=== PATIENT | male | born 1945 | race Caucasian/White ===

== ENCOUNTER 2017-04-21 10:42 | Emergency (ER) | payer OTHER, MEDICARE ==
[~2017-04-21] VITALS: Ht 167.6 cm; Wt 128.4 kg
[~2017-04-21 10:42] MED LIST: ADOXA100 MG PO; ALLERGY MEDICAT25 MG PO; AMLODIPINE5 MG PO; ASPIRIN81 M1 PO; BACTRIM DS 8001 TA1 PO; BACTROBAN OINT22 GM PO; BASLE1 CRE TP; BENADRYL25 M2 PO; CARVEDILOL3.125 MG PO; CEPHALEXIN500 M1 PO; CIPROFLOXACIN500 MG PO; COLACE100 MG PO; COREG6.25 MG PO; DAYPRO600 M1 PO; DIABETA1.25 MG PO; DIABETA5 MG PO; DRISDOL50000 IU PO; FLOMAX0.4 MG PO; GLUCOPHAGE1000 MG PO; GLUCOSE4 GM PO; GLUCOVANCE 1.251 TAB PO; GLYBURIDE5 MG PO; HUMULIN R100 U/ML IJ; HYDROCODONE BIT1 T11 PO; KEFLEX500 M1 PO; KERODEX 711 CRE TP; LANTUS SOLOS100 U/M1 SC; LANTUS100 U/ML SC; LASIX40 MG PO; LEVEMIR100 U/ML SC; LEVOTHYROXIN0.025 MG PO; LIPITOR40 MG PO; LISINOPRIL20 MG PO; MESTINON PO; MESTINON60 MG; MESTINON60 MG PO; METFORMIN HCL500 MG PO; METFORMIN1000 MG PO; MICRO-K LS20 MEQ PO; MIRALAX POWDER17 G1 PO; MIRALAX17 GM/PACK PO; MULTIPLE VITAMI1 TAB; NORCO 5-325 TA1 EACH PO; NORFLEX100 MG PO; NORVASC10 MG PO; NOVOLIN R100 U/ML IJ; NOVOLOG 70/30 M10 ML SC; Nizoral 2%15 GM PO; OMEPRAZOLE D/R20 MG PO; OMEPRAZOLE40 MG PO; Orphenadrine C100 MG PO; PRILOSEC20 M1 PO; PROTONIX40 MG PO; PYRIDOSTIGMINE180 MG PO; REGLAN IM; REGLAN10 MG PO; REGLAN5 MG PO; SPIRONOLACTONE25 MG PO; TAMSULOSIN HCL0.4 MG PO; TORADOL10 MG PO; ULTRAM50 MG PO; VIBRAMYCIN100 MG PO; VICODIN 5/500 505 MG PO; VICODIN 500 MG-1 TAB PO; VITAMIN D1000 IU PO; XANAX0.25 MG PO; ZOFRAN8 MG PO; ZYVOX600 MG PO
[2017-04-21 10:51] VITALS: BP 101/66
[2017-04-21 11:40] LABS: BILIRUBIN NEGATIVE (NEGATIVE); BLOOD NEGATIVE (NEGATIVE); CLARITY CLEAR (CLEAR); COLOR YELLOW (YELLOW); GLUCOSE TRACE (NEGATIVE); KETONE NEGATIVE (NEGATIVE); LEUKO ESTERASE NEGATIVE (NEGATIVE); NITRITE NEGATIVE (NEGATIVE); PH 5.5 (5.0-9.0); PROTEIN NEGATIVE (NEGATIVE); SPECIFIC GRAVITY 1.015 (1.005-1.030); UROBILINOGEN 0.2 E.U./dl (0.2-1.0)
[2017-04-21 11:55] LABS: URINE REFLEX COMMENT NO (NO)
[2017-04-21] MEDS ORDERED: NYSTATIN CREAM15 GM T (12:18)
[2017-04-21] MEDS ORDERED: HYDROCODONE BIT1 T11 PO (12:33)
== END 2017-04-21 12:26 | disposition home or self-care (01) ==
LOC: ED 10:42
PROVIDERS: Physician Assistant
DX: G89.29 Other chronic pain (principal); B37.89 Other sites of candidiasis; M54.5 Low back pain; Z79.82 Long term (current) use of aspirin; Z79.899 Other long term (current) drug therapy

== ENCOUNTER 2017-08-11 01:06 | Inpatient (IN) | payer MEDICARE, OTHER ==
[2017-08-11] VITALS (8 sets, daily range): BP systolic 108–148; BP diastolic 52–83
[~2017-08-11] VITALS: Ht 167.6 cm; Wt 127.6 kg
[~2017-08-11 01:06] MED LIST changes: +LANTUS SOL100 UNIT/1 SQ; +NYSTATIN CREAM15 GM T; -OMEPRAZOLE40 MG PO
[2017-08-11 01:48] LABS: BASO # 0.1 10*3/uL (0.0-0.1); BASO % 0.6 % (0.0-1.0); EOS # 0.2 10*3/uL (0.0-0.4); EOS % 2.6 % (1.0-4.0); HEMATOCRIT 39.3 % (42.0-52.0); HEMOGLOBIN 13.1 g/dl (14.0-18.0); LYMPH # 3.3 10*3/uL (1.3-4.4); LYMPH % 38.2 % (27.0-41.0); MEAN CELL VOLUME 89.7 fl (80.0-94.0); MEAN CORPUSCULAR HGB 29.9 pg (27.0-31.0); MEAN CORPUSCULAR HGB CONC 33.3 g/dl (33.0-37.0); MEAN PLATELET VOLUME 9.2 fl (9.6-12.3); MONO # 0.6 10*3/uL (0.1-1.0); MONO % 6.5 % (3.0-9.0); NEUT # 4.4 10*3/uL (2.3-7.9); NEUT % 51.9 % (47.0-73.0); PLATELET COUNT AUTOMATED 287 10*3/uL (130-400); RED BLOOD COUNT 4.38 10*6/uL (4.50-5.90); RED CELL DISTRI WIDTH 13.2 % (0-14.5); WHITE BLOOD COUNT 8.5 10*3/uL (4.8-10.8)
--- NOTE | 2017-08-11 01:52 | NUR ---
NOTIFIED OF CRITICAL LACTIC 2.7.
[2017-08-11 02:02] LABS: INTERNATIONAL NORM RATIO 1.1 (2.0-3.5)
[2017-08-11 02:04] LABS: ALBUMIN 3.4 gm/dl (3.1-4.5); ALKALINE PHOSPHATASE 60 U/L (45-117); BUN 11 mg/dl (7-24); CHLORIDE 99 mmol/L (98-107); CREATININE 0.96 mg/dL (0.70-1.30); LIPASE 346 U/L (73-393); POTASSIUM 3.9 mmol/L (3.5-5.1); SGOT/AST 25 IU/L (3-35); SGPT/ALT 29 U/L (12-78); SODIUM 138 mmol/L (136-145); TOTAL PROTEIN 7.4 gm/dL (6.4-8.2)
[2017-08-11 02:05] LABS: TROPONIN I 0.028 ng/ml (<0.045)
--- NOTE | 2017-08-11 03:30 | NUR ---
DR. HWANG NOTIFIED OF BEDSIDE GLUCOSE 192. FAMILY UNDERSTANDS THAT DR. HWANG WANTS TO HOLD PATIENT'S DNR CC FOR 12 HOURS FOR CARDIAC MONITORING AND IV BOLUSES. PATIENT ACCEPTED.
[2017-08-11 03:43] LABS: BILIRUBIN NEGATIVE (NEGATIVE); BLOOD NEGATIVE (NEGATIVE); CLARITY SL CLOUDY (CLEAR); COLOR YELLOW (YELLOW); GLUCOSE NEGATIVE (NEGATIVE); KETONE TRACE (NEGATIVE); LEUKO ESTERASE NEGATIVE (NEGATIVE); NITRITE NEGATIVE (NEGATIVE); UROBILINOGEN 0.2 E.U./dl (0.2-1.0)
[2017-08-11 03:50] LABS: BACTERIA TRACE; EPITHELIAL CELLS 0-2; WBC 0-2 wbc/hpf (0-5)
--- NOTE | 2017-08-11 03:54 | NUR ---
DOCTOR NOTIFIED OF ABNORMAL LACTIC ACID OF 2.8.
--- NOTE | 2017-08-11 04:20 | NUR ---
CALLED AND SPOKE TO DR LOVE REGARDING PT HAVING PAIN BEFORE BREAKTHROUGH PAIN MEDICATION AVAILABLE. PT CRYING IN ROOM. QUESTIONED CHANGING THE FREQUENCY OF MEDICATION AND ALSO ASKED IF PATIENT COULD GET A KPAD FOR ABDOMEN. HE STATES HE WILL TALK TO DR KIRKPATRICK TO SEE WHAT THEY CAN DO.
--- NOTE | 2017-08-11 04:51 | NUR ---
PATIENT GIVEN HOME MEDS FOR MS, 90 MG (1 1/2 ) TAB OF PYRIDOSTIGMINE BROMIDE AT 0450 HRS
--- NOTE | 2017-08-11 05:15 | NUR ---
A 71, admitted to 4E, under the services of LINA Mitchell DO with a diagnosis of UNCONTROLLED DIABETES, TIA. Chief complaint is HYPERGLYCEMIA. Patient arrived via bed from ER. Monitor applied. Initial assessment completed. Vital signs taken and recorded. LINA MITCHELL DO notified of admission to the unit. Orders received. See assessment for past medical history, medications and allergies. Patient and/or family oriented to unit. visitation policy reviewed. Clothing/patient valuable form completed. TERRI APPIAH
--- NOTE | 2017-08-11 05:29 | NUR ---
PT BROUGHT IN ONE BOTTLE OF MEDS FROM HOME. STATES HE TAKES MORE MEDICATIONS BUT IS UNSURE OF WHAT THEY ARE. PT USES [facility]. NUMBER IS [id number]
--- NOTE | 2017-08-11 06:05 | NUR ---
RECEIVED A CRITICAL LAB VALUE FOR LACTIC ACID OF 2.2. CALL DR GARBER AND MADE HIM AWARE, HE SAYS HE WILL BE DOWN TO ASSESS THE PATIENT SHORTLY.
--- NOTE | 2017-08-11 06:58 | NUR ---
PT DOES NOT WISH TO RECEIVED FLU OR PNEUMONIA VACCINE.
[2017-08-11 07:30] LABS: BASO # 0.1 10*3/uL (0.0-0.1); BASO % 0.6 % (0.0-1.0); EOS # 0.2 10*3/uL (0.0-0.4); EOS % 2.2 % (1.0-4.0); HEMATOCRIT 38.3 % (42.0-52.0); HEMOGLOBIN 12.9 g/dl (14.0-18.0); LYMPH # 3.3 10*3/uL (1.3-4.4); LYMPH % 38.6 % (27.0-41.0); MEAN CELL VOLUME 90.5 fl (80.0-94.0); MEAN CORPUSCULAR HGB 30.5 pg (27.0-31.0); MEAN CORPUSCULAR HGB CONC 33.7 g/dl (33.0-37.0); MEAN PLATELET VOLUME 9.2 fl (9.6-12.3); MONO # 0.5 10*3/uL (0.1-1.0); MONO % 5.7 % (3.0-9.0); NEUT # 4.5 10*3/uL (2.3-7.9); NEUT % 52.6 % (47.0-73.0); PLATELET COUNT AUTOMATED 284 10*3/uL (130-400); RED BLOOD COUNT 4.23 10*6/uL (4.50-5.90); RED CELL DISTRI WIDTH 13.3 % (0-14.5); WHITE BLOOD COUNT 8.6 10*3/uL (4.8-10.8)
[2017-08-11 07:54] LABS: CHLORIDE 101 mmol/L (98-107); POTASSIUM 3.8 mmol/L (3.5-5.1); SODIUM 137 mmol/L (136-145)
--- NOTE | 2017-08-11 07:56 | NUR ---
DR JOHNSON IN TO SEE PT, NOTIFIED OF PT'S COMPLAINTS OF DIARRHEA AND SHAKINESS.
[2017-08-11 08:02] LABS: ACT PARTIAL THROMBO TIME 23.1 SECONDS (20.8-31.5); INTERNATIONAL NORM RATIO 1.1 (2.0-3.5)
--- NOTE | 2017-08-11 08:03 | NUR ---
CALL PLACED TO BAMBI AT THIS TIME TO VERIFY PT'S HOME MEDS. NO ANSWER AT THIS TIME. WILL RETRY.
[2017-08-11 08:05] LABS: ALBUMIN 3.1 gm/dl (3.1-4.5); ALKALINE PHOSPHATASE 56 U/L (45-117); BUN 11 mg/dl (7-24); CHOLESTEROL 119 mg/dL (<200); CREATININE 1.03 mg/dL (0.70-1.30); FREE T4 1.41 ng/dl (0.76-1.46); HDL CHOLESTEROL 48 mg/dl (40-60); LDL CHOLESTEROL 53 mg/dL (9-159); PHOSPHOROUS 2.3 mg/dL (2.5-4.9); SGOT/AST 27 IU/L (3-35); SGPT/ALT 29 U/L (12-78); TRIGLYCERIDES 89 mg/dl (<150); VLDL CHOLESTEROL 18 mg/dL (6-40)
--- NOTE | 2017-08-11 08:06 | NUR ---
DR JOHNSON STATES OK FOR PT TO HAVE DIET FOR BREAKFAST. ORDER CHANGED FROM LUNCH TO BREAKFAST.
[2017-08-11 08:52] LABS: VITAMIN D, 25-HYDROXY 27.1 ng/mL (30-100)
--- NOTE | 2017-08-11 09:26 | NUR ---
SPEECH PATHOLOGY Assessment of speech/swallowing skills completed. Patient was admitted with weakness and slurred speech and has hx significant for TIA and myasthenia gravis. He was alert and cooperative and reported slurred speech and some trouble swallowing. Oral peripheral assessment completed with lingual skills very mildly reduced in strength, but WNL otherwise. Patient swallowed puree and thin liquid with no oral or pharyngeal difficulty. He displayed mild difficulty masticating solid consistency. Receptive language skills were WNL. Mild dysarthria of speech was displayed. Recommend a soft diet and thin liquids with use of safe swallow strategies such as upright positioning for all po intake, small bites/sips, alternating liquids and solids and moistening foods as appropriate so they are easier to chew and swallow. He was also educated on compensatory strategies to use to improve speech clarity. Follow up therapy is recommended to ensure safe tolerance of diet, use of strategies and education. Patient and his nurse were informed of results and mera. and verbalized understanding. Refer to report in [employer] for further info. Thank you for this referral. TINO GIBSON MSCCC-OVERLOCK WAISTLINE JOINER
--- NOTE | 2017-08-11 09:40 | NUR ---
MEDICATED WITH ZOFRAN PER PRN ORDER FOR COMPLAINTS OF NAUSEA. WILL MONITOR FOR EFFECTIVENESS. PT STATES HE NO LONGER HAS A HEADACHE AND DENIES NEED FOR TYLENOL. REINFORCED CALL LIGHT USE FOR SAFETY AND EDUCATED PT ON THE USE OF THE BED ALARM, WE DON'T WANT HIM TO FALL, PT VERBALIZED UNDERSTANDING.
--- NOTE | 2017-08-11 09:45 | NUR ---
DR ROBLES NOTIFIED OF SPEECH THERAPY'S RECOMMENDATION OF SOFT DIET AND THIN LIQUIDS.
[2017-08-11] MEDS ORDERED: SYNTHROID25 MCG PO (11:09)
[2017-08-11] MEDS ORDERED: XANAX0.5 MG PO (11:09)
--- NOTE | 2017-08-11 11:12 | NUR ---
MED REC UPDATED BY LIST PROVIDED BY LUCIO'Terra LACY.
--- NOTE | 2017-08-11 11:13 | NUR ---
NOTIFIED DR MIRELES THAT PT'S MED REC IS UPDATED AND VERIFIED.
--- NOTE | 2017-08-11 14:48 | NUR ---
Patient approached for Occupational Therapy evaluation this date. Patient declined the OT evaluation this date with c/o of finally getting to sleep. OTR will recheck at a later date. Patient in agreement with tomorrow. Thank you for this referral. Anjana Jordan OTR/l
--- NOTE | 2017-08-11 16:10 | NUR ---
MEDICATED WITH TYLENOL PER PT REQUEST FOR C/O HEADACHE. WILL MONITOR FOR EFFECTIVENESS.
--- NOTE | 2017-08-11 16:47 | NUR ---
NOTIFIED DR ROBLES OF PT'S COMPLAINTS OF PRODUCTIVE WITH THICK SPUTUM THAT IS GETTING CAUGHT IN HIS THROAT AND WOULD LIKE SOMETHING FOR IT.
--- NOTE | 2017-08-11 18:32 | NUR ---
PT STATES TYLENOL WAS MILDLY EFFECTIVE FOR HEADACHE RELIEF.
[2017-08-12] VITALS: BP 116/60
--- NOTE | 2017-08-12 02:30 | NUR ---
PATIENT RESTING IN BED WITH EYES CLOSED. RESPS EASY AND REGULAR. BED IN LOWEST POSITION, BED ALARM ON, CALL LIGHT IN REACH
[2017-08-12 06:52] LABS: BUN 12 mg/dl (7-24); CHLORIDE 102 mmol/L (98-107); CREATININE 0.91 mg/dL (0.70-1.30); PHOSPHOROUS 3.2 mg/dL (2.5-4.9); POTASSIUM 3.9 mmol/L (3.5-5.1); SODIUM 138 mmol/L (136-145)
[2017-08-12 08:00] VITALS: BP 118/62
--- NOTE | 2017-08-12 10:18 | NUR ---
PHYSICAL THERAPY PAtient evaluated on 4, full evaluation to follow. Continue with PT as per plan of care with fall and acute debility precautions. PAtient refuses SNF, home with complete home health services recommended. PAtient is moderate complexity via chart review, tests and evaluation: [id number]. Thank you for this ereferral. May Leo,PT
--- NOTE | 2017-08-12 10:33 | NUR ---
Occupational Therapy evaluation completed this date on 4 with full eval to follow. Precautions include IV UE, use of electric w/c in the home, but needing to use ww at hospital,low complexity level 52991. Recommend no further inpatient OT, but rather OT referral for bathroom/shower safety. Patient in agreement with this plan. Thank you for this referral. Anjana Jordan OTR/l
--- NOTE | 2017-08-12 10:58 | NUR ---
In to see patient to discuss discharge plans. Patient is refusing snf, states he has a motorized scooter at home he uses to get around, he is worried about getting home health and getting a bill because he can't afford it. Contacted oralia from [facility] who stated she will check to see if patient has any other home health agency, but stated he will not be billed for any services with Medicare. Will follow.
[2017-08-12 12:00] VITALS: BP 102/56
--- NOTE | 2017-08-12 13:50 | NUR ---
SPEECH PATHOLOGY PT SEEN THIS PM TO F/U REGARDING TOLERANCE TO DIET, SPEECH PRODUCTION, AND TO REINFORCE ASPIRATION PRECAUTIONS. GENERAL COMMENTS: UPON ENTRANCE TO ROOM, PT WAS AWAKE AND SEATED UPRIGHT IN A BEDSIDE CHAIR. HE REMAINED AWAKE, ALERT, AND COOPERATIVE THROUGHOUT. PT DENIED CONCERNS REGARDING SWALLOWING ALTHOUGH NOTED AN OCCASIONAL STICKING SENSATION IN HIS THROAT THAT HE ATTRIBUTED TO PHLEGM. HE ALSO REPORTED THAT HIS SPEECH HAS NOT RETURNED TO BASELINE; HE NOTICES OCCASIONAL DIFFICULTY PRODUCING CERTAIN WORDS. PT'S SPEECH WAS 100% COMPREHENSIBLE AND NO DIFFICULTY WAS NOTED; HOWEVER, RATE WAS MILDLY SLOWED. SWALLOWING: PT SELF-FED THIN LIQUIDS VIA CUP X6 AND BITES OF COARSE SOLIDS X6. ORAL PHASE: ADEQUATE BOLUS ACCEPTANCE WITH NO ANTERIOR LOSS NOTED. MASTICATION WAS TIMELY AND CLINICALLY APPEARED COMPLETE. MILD ORAL RESIDUE NOTED WITH SOLIDS, CLEARED WITH LIQUID WASH. PHARYNGEAL PHASE: HLE VISUALIZED. ONE INSTANCE OF COUGHING NOTED AT A DELAY FOLLOWING MULTIPLE BITES OF SOLIDS. NO OTHER OVERT S/S OF ASPIRATION/PENETRATION OBSERVED. IMPRESSIONS: MR. OROZCO PRESENTS WITH NORMAL OROPHARYNGEAL SWALLOWING FUNCTION AND REMAINS APPROPRIATE FOR HIS CURRENT DIET, SOFT FOODS WITH THIN LIQUIDS. RECOMMNEDED ASPIRATION PRECAUTIONS WERE AGAIN REVIEWED. HE NOTED THAT HIS SPEECH HAS NOT YET RETURNED TO BASELINE BUT IS 100% COMPREHENSIBLE. WE DISCUSSED LETTING HIS DOCTOR KNOW IF HIS SPEECH HAS NOT RETURNED TO BASELINE WHEN FOLLOWING UP AFTER HE IS DISCHARGED FROM THE HOSPITAL. PT WAS IN AGREEMENT WITH THIS PLAN. RECOMMENDATIONS: 1. CONTINUE CURRENT DIET, SOFT FOODS WTIH THIN LIQIUDS 2. ASPIRATION PRECAUTIONS - ALTERNATE BITES/SIPS - PAUSE PO IF FATIGUED - SMALL BITES/SIPS - FULLY UPRIGHT, AWAKE, AND ALERT FOR ALL PO - ORAL CARE AT LEAST BID 3. CONSIDER REFERRAL FOR SPEECH EVALUATION ON AN OP BASIS IF SPEECH CHANGES HAVE NOT RESOLVED. POC: NO FURTHER INPATIENT F/U AT THIS TIME. CONSIDER OP REFERRAL IF SPEECH CHANGES DO NOT RESOLVE. FINDINGS AND RECOMMENDATIONS WERE DISCUSSED WITH PT WHO EXPRESSED UNDERSTANDING AND AGREEMENT. SHANTI MOBLEY-ART DEALER 1. CONTINUE
--- NOTE | 2017-08-12 14:49 | NUR ---
24 HR chart check completed.
[2017-08-12 16:00] VITALS: BP 113/60
[2017-08-12] MEDS ORDERED: ATORVASTATIN CA80 M1 PO (16:15)
[2017-08-12] MEDS ORDERED: LANTUS SOL100 UNIT/1 SQ (16:21)
[2017-08-12] MEDS ORDERED: CLOPIDOGREL75 MG PO (16:21)
[2017-08-12] MEDS ORDERED: VITAMIN D-32000 UNI1 PO (16:21)
--- NOTE | 2017-08-12 17:27 | NUR ---
[facility] Discharge instructions reviewed with patient/family. Patient receptive and verbalizes understanding. Follow-up care arranged. Written instructions given to patient/family. REKHA KAY
--- NOTE | 2017-08-13 07:27 | NUR ---
Patient discharged to home with home health via [facility]. Received order faxed referral to oralia at [facility].
== END 2017-08-12 17:27 | disposition home health service (06) | DRG 69 ==
LOC: ED 01:06 → EDHOLD 03:43 → 4E 03:43
PROVIDERS: Emergency Medicine Emergency Medical Services; Internal Medicine; Student in an Organized Health Care Education/Training Program; ADMIT Internal Medicine
DX: G45.9 Transient cerebral ischemic attack, unspecified (principal); E44.0 Moderate protein-calorie malnutrition; E11.65 Type 2 diabetes mellitus with hyperglycemia; E87.2 Acidosis; E66.01 Morbid (severe) obesity due to excess calories; I50.22 Chronic systolic (congestive) heart failure; Z68.42 Body mass index [BMI] 45.0-49.9, adult; G70.00 Myasthenia gravis without (acute) exacerbation; D64.9 Anemia, unspecified; E55.9 Vitamin D deficiency, unspecified; I11.0 Hypertensive heart disease with heart failure; R19.7 Diarrhea, unspecified; N40.0 Benign prostatic hyperplasia without lower urinary tract symptoms; H40.9 Unspecified glaucoma; E05.90 Thyrotoxicosis, unspecified without thyrotoxic crisis or storm; G47.33 Obstructive sleep apnea (adult) (pediatric); E78.5 Hyperlipidemia, unspecified; Z86.73 Personal history of transient ischemic attack (TIA), and cerebral infarction without residual deficits; Z95.0 Presence of cardiac pacemaker; I25.2 Old myocardial infarction; Z82.49 Family history of ischemic heart disease and other diseases of the circulatory system; Z83.3 Family history of diabetes mellitus; Z79.4 Long term (current) use of insulin; Z79.82 Long term (current) use of aspirin; Z79.899 Other long term (current) drug therapy

== ENCOUNTER 2018-01-03 05:11 | Inpatient (IN) | payer MEDICARE, OTHER ==
[~2018-01-03] VITALS: Ht 167.6 cm; Wt 119.9 kg
--- NOTE | ~2018-01-03 | PR ---
[place], [place] PROGRESS NOTE NAME: OMAIRA OROZCO UNIT #: [id number] ROOM: 507 DOCTOR: GILBERT JUNG MD BIRTHDATE: [birth year] DOS: 01/04/2018 REASON OF VISIT: The patient with chest pain, hypertension and CHF. HISTORY OF PRESENT ILLNESS: The patient is feeling better. Denies any chest pain or PND. Feeling much better. No orthopnea. No nausea, vomiting, or diarrhea. REVIEW OF SYSTEMS: Review of the 8 systems negative except as mentioned above. RHYTHM STRIPS: The patient in sinus rhythm. PHYSICAL EXAMINATION: VITAL SIGNS: Blood pressure 100/60, pulse 71, respiration is 20. GENERAL: Alert, comfortable, in no acute distress. HEENT: Pupils are equal, no jaundice. Tongue was moist and pharynx clear. NECK: Supple, no distended neck veins, no carotid bruit. CHEST: Symmetrical, nontender. LUNGS: A few scattered rhonchi, slightly diminished at the bases, but fair air entry bilaterally. HEART: Regular rhythm, no S3, no palpable thrills. ABDOMEN: Obese, nontender. Bowel sounds normal. EXTREMITIES: Show trace to 1+ edema. Distal pulses palpable. SKIN: Warm and dry. No cyanosis, no clubbing. NEUROLOGIC: The patient is alert, oriented. No focal neurologic deficit. Medications and labs reviewed. His creatinine is 1.16 today. IMPRESSION: 1. Acute on chronic diastolic heart failure, mostly resolved. 2. Chest pain, atypical. 3. Hypertension. 4. History of coronary artery disease. 5. Status post pacemaker. 6. Non-morbid obesity. RECOMMENDATIONS: 1. Continue current medications. 2. Change his diuretics to p.o. diuretics. 3. Home either today or tomorrow. 4. There is no family at the bedside at the time of examination. [place], [place] PROGRESS NOTE NAME: OMAIRA OROZCO UNIT #: [id number] ROOM: 507 DOCTOR: GILBERT JUNG MD BIRTHDATE: [birth year] GILBERT JUNG MD CM:PNTRANS [id number] GILBERT JUNG MD 01/05/18 1001 interface
--- NOTE | ~2018-01-03 | CON ---
[place], [place] REPORT OF CONSULTATION NAME: OMAIRA OROZCO UNIT #: [id number] ROOM: 507 DOCTOR: GILBERT JUNG MD BIRTHDATE: [birth year] DOS: 01/03/2018 CARDIOLOGY CONSULTATION. REASON FOR CONSULT: CHF. HISTORY OF PRESENT ILLNESS: The patient is a 72-year-old patient with history of cardiomyopathy, hypertension, CAD, diabetes, admitted to the hospital for some nausea as well as constipation. He was recently discharged from the hospital. He had some epigastric pain that lasted about 15 minutes, resolved on its own and he also had some tightness around his lower abdominal area. He was found to have congestive heart failure on chest x-ray and Cardiology was consulted for further recommendations. At the time of examination, the patient appears alert and oriented. Denies any chest pain, shortness of breath, PND or orthopnea. No nausea, vomiting. No headache, no dizziness. No fever or chills. No bladder or bowel symptoms. His epigastric pain is resolved at the time of my examination. REVIEW OF SYSTEMS: Review of the 10 systems negative except as mentioned above. PAST MEDICAL HISTORY: 1. Coronary artery disease. 2. Hypertension. 3. Diabetes. 4. Non-morbid obesity. 5. Cardiomyopathy. 6. Myasthenia gravis. 7. Dyslipidemia. 8. Transient ischemic attack. 9. Goiter. 10. History of pacemaker. PAST SURGICAL HISTORY: History of pacemaker insertion and the left shoulder surgery. SOCIAL HISTORY: The patient does not drink alcohol or illicit drugs. The patient does smoke. FAMILY HISTORY: Father, mother . ALLERGIES: No known drug allergies. HOME MEDICATIONS: Reviewed. PHYSICAL EXAMINATION: VITAL SIGNS: Blood pressure 133/71, pulse 84, respiration was 18, weight 118.8 kilos, BMI 42. GENERAL: Alert, comfortable, in no acute distress. HEENT: Pupils are round and equal. No jaundice. Tongue was moist and pharynx was clear. [place], [place] REPORT OF CONSULTATION NAME: OMAIRA OROZCO UNIT #: [id number] ROOM: 507 DOCTOR: GILBERT JUNG MD BIRTHDATE: [birth year] NECK: Supple, no distended neck veins, no carotid bruit. CHEST: Symmetrical, nontender. Pacemaker site is unremarkable. LUNGS: A few scattered rhonchi, diminished at bases. HEART: Regular rhythm, no S3. Grade 1/6 systolic murmur. No palpable thrills. ABDOMEN: Benign, nontender, obese. Bowel sounds normal. EXTREMITIES: Showed 1+ edema. Distal pulses are palpable. SKIN: Warm and dry. No cyanosis, no clubbing. RECTAL: Deferred. GENITOURINARY: Deferred. REVIEW OF THE DIAGNOSTIC TESTS: EKG showed sinus rhythm, ventricular pacing. Chest x-ray showed congestive heart failure. His labs are reviewed. Hemoglobin 12, creatinine 0.9. WBC count was 4000. Magnesium 1.6. The troponins are negative x 3. CURRENT MEDICATIONS: Reviewed. IMPRESSION: 1. Acute on chronic systolic heart failure, EF 35-40% by echo in 08/2017. 2. Hypertension. 3. Coronary artery disease. 4. Status post pacemaker. 5. Non-morbid obesity. 6. Diabetes type 2. 7. Myasthenia gravis. 8. History of transient ischemic attack. RECOMMENDATIONS: 1. Currently, he is feeling better. Continue IV diuretics and monitor daily weights, in and outs as well as renal function and blood pressures. 2. Continue cardiac medication, include beta blockers, GWENDOLYN inhibitors, aspirin, and statins. 3. There is no further cardiac testing at this time. 4. Home in 24-48 hours from the cardiac standpoint. GILBERT JUNG MD CM:CONSTR:REPORT OF CONSULTATION 9 01/04/18 2001 interface
[~2018-01-03 05:11] MED LIST changes: +ATORVASTATIN CA80 M1 PO; +CLOPIDOGREL75 MG PO; +SYNTHROID25 MCG PO; +VITAMIN D-32000 UNI1 PO; +XANAX0.5 MG PO
[2018-01-03 05:13] VITALS: BP 146/77
[2018-01-03 05:54] LABS: BASO % 0.4 % (0.0-1.0); EOS # 0.2 10*3/uL (0.0-0.4); EOS % 2.6 % (1.0-4.0); HEMATOCRIT 37.6 % (42.0-52.0); LYMPH # 2.6 10*3/uL (1.3-4.4); LYMPH % 30.8 % (27.0-41.0); MEAN CELL VOLUME 91.9 fl (80.0-94.0); MEAN CORPUSCULAR HGB 29.3 pg (27.0-31.0); MEAN CORPUSCULAR HGB CONC 31.9 g/dl (33.0-37.0); MONO # 0.6 10*3/uL (0.1-1.0); MONO % 6.9 % (3.0-9.0); NEUT % 58.9 % (47.0-73.0); PLATELET COUNT AUTOMATED 291 10*3/uL (130-400); RED BLOOD COUNT 4.09 10*6/uL (4.50-5.90); RED CELL DISTRI WIDTH 14.1 % (0-14.5); WHITE BLOOD COUNT 8.4 10*3/uL (4.8-10.8)
[2018-01-03 06:10] LABS: ALBUMIN 3.1 gm/dl (3.1-4.5); ALKALINE PHOSPHATASE 64 U/L (45-117); BUN 13 mg/dl (7-24); CHLORIDE 103 mmol/L (98-107); CREATININE 0.92 mg/dL (0.70-1.30); POTASSIUM 4.1 mmol/L (3.5-5.1); SGOT/AST 22 IU/L (3-35); SGPT/ALT 24 U/L (12-78); SODIUM 140 mmol/L (136-145); TOTAL PROTEIN 6.8 gm/dL (6.4-8.2); TROPONIN I 0.037 ng/ml (<0.045)
[2018-01-03 06:29] VITALS: BP 130/66
[2018-01-03 06:50] LABS: ACT PARTIAL THROMBO TIME 23.1 SECONDS (20.8-31.5)
[2018-01-03 07:34] VITALS: BP 133/71
[2018-01-03] MEDS ORDERED: METFORMIN500 MG PO (07:58)
[2018-01-03] MEDS ORDERED: LASIX40 MG PO (07:58)
[2018-01-03 12:00] VITALS: BP 137/72
[2018-01-03 16:00] VITALS: BP 101/63
[2018-01-03 20:00] VITALS: BP 104/63
[2018-01-04] VITALS: BP 100/53
[2018-01-04 06:50] LABS: BASO % 0.5 % (0.0-1.0); EOS # 0.2 10*3/uL (0.0-0.4); EOS % 1.7 % (1.0-4.0); HEMOGLOBIN 12.1 g/dl (14.0-18.0); LYMPH % 34.6 % (27.0-41.0); MEAN CELL VOLUME 92.7 fl (80.0-94.0); MEAN CORPUSCULAR HGB 29.5 pg (27.0-31.0); MEAN CORPUSCULAR HGB CONC 31.8 g/dl (33.0-37.0); MEAN PLATELET VOLUME 9.3 fl (9.6-12.3); MONO # 0.6 10*3/uL (0.1-1.0); MONO % 6.6 % (3.0-9.0); NEUT # 4.9 10*3/uL (2.3-7.9); NEUT % 56.4 % (47.0-73.0); PLATELET COUNT AUTOMATED 312 10*3/uL (130-400); RED CELL DISTRI WIDTH 14.4 % (0-14.5); WHITE BLOOD COUNT 8.6 10*3/uL (4.8-10.8)
[2018-01-04 07:14] LABS: BUN 21 mg/dl (7-24); CHLORIDE 101 mmol/L (98-107); CHOLESTEROL 115 mg/dL (<200); CREATININE 1.16 mg/dL (0.70-1.30); HDL CHOLESTEROL 46 mg/dl (40-60); LDL CHOLESTEROL 51 mg/dL (9-159); PHOSPHOROUS 4.2 mg/dL (2.5-4.9); SODIUM 140 mmol/L (136-145); TRIGLYCERIDES 89 mg/dl (<150); VLDL CHOLESTEROL 18 mg/dL (6-40)
[2018-01-04 08:00] VITALS: BP 100/60
[2018-01-04 12:00] VITALS: BP 124/86
[2018-01-04 16:00] VITALS: BP 130/82
[2018-01-04 20:00] VITALS: BP 130/79
[2018-01-05] VITALS: BP 128/77
[2018-01-05 08:00] VITALS: BP 138/72
[2018-01-05 12:00] VITALS: BP 100/50
[2018-01-05 13:11] LABS: BASO % 0.5 % (0.0-1.0); EOS # 0.2 10*3/uL (0.0-0.4); EOS % 1.9 % (1.0-4.0); HEMATOCRIT 38.3 % (42.0-52.0); HEMOGLOBIN 12.4 g/dl (14.0-18.0); LYMPH % 22.8 % (27.0-41.0); MEAN CELL VOLUME 91.2 fl (80.0-94.0); MEAN CORPUSCULAR HGB 29.5 pg (27.0-31.0); MEAN CORPUSCULAR HGB CONC 32.4 g/dl (33.0-37.0); MEAN PLATELET VOLUME 8.8 fl (9.6-12.3); MONO # 0.7 10*3/uL (0.1-1.0); MONO % 7.8 % (3.0-9.0); NEUT # 5.7 10*3/uL (2.3-7.9); NEUT % 66.6 % (47.0-73.0); PLATELET COUNT AUTOMATED 302 10*3/uL (130-400); RED CELL DISTRI WIDTH 14.3 % (0-14.5); WHITE BLOOD COUNT 8.6 10*3/uL (4.8-10.8)
[2018-01-05 13:29] LABS: ALBUMIN 3.2 gm/dl (3.1-4.5); ALKALINE PHOSPHATASE 59 U/L (45-117); BUN 23 mg/dl (7-24); CHLORIDE 98 mmol/L (98-107); CREATININE 1.23 mg/dL (0.70-1.30); LIPASE 1218 U/L (73-393); POTASSIUM 4.7 mmol/L (3.5-5.1); SGOT/AST 32 IU/L (3-35); SGPT/ALT 24 U/L (12-78); SODIUM 136 mmol/L (136-145); TROPONIN I 0.017 ng/ml (<0.045)
[2018-01-05 15:04] LABS: BILIRUBIN 1+ (NEGATIVE); BLOOD 3+ (NEGATIVE); CLARITY SL CLOUDY (CLEAR); COLOR YELLOW (YELLOW); GLUCOSE NEGATIVE (NEGATIVE); KETONE NEGATIVE (NEGATIVE); LEUKO ESTERASE NEGATIVE (NEGATIVE); NITRITE NEGATIVE (NEGATIVE); SPECIFIC GRAVITY >= 1.030 (1.005-1.030); UROBILINOGEN 0.2 E.U./dl (0.2-1.0)
[2018-01-05 15:13] LABS: BACTERIA 2+; EPITHELIAL CELLS 0-2; RBC TNTC rbc/hpf (0-2)
[2018-01-05 16:00] VITALS: BP 131/62
[2018-01-05 20:00] VITALS: BP 100/61
[2018-01-06] VITALS: BP 90/53
[2018-01-06 06:48] LABS: BASO % 0.4 % (0.0-1.0); EOS # 0.2 10*3/uL (0.0-0.4); EOS % 2.9 % (1.0-4.0); HEMATOCRIT 39.3 % (42.0-52.0); HEMOGLOBIN 12.4 g/dl (14.0-18.0); MEAN CELL VOLUME 92.5 fl (80.0-94.0); MEAN CORPUSCULAR HGB 29.2 pg (27.0-31.0); MEAN CORPUSCULAR HGB CONC 31.6 g/dl (33.0-37.0); MEAN PLATELET VOLUME 8.9 fl (9.6-12.3); MONO # 0.5 10*3/uL (0.1-1.0); MONO % 6.6 % (3.0-9.0); NEUT # 4.2 10*3/uL (2.3-7.9); NEUT % 60.8 % (47.0-73.0); PLATELET COUNT AUTOMATED 295 10*3/uL (130-400); RED BLOOD COUNT 4.25 10*6/uL (4.50-5.90); RED CELL DISTRI WIDTH 14.3 % (0-14.5)
[2018-01-06 07:19] LABS: ALBUMIN 3.1 gm/dl (3.1-4.5); ALKALINE PHOSPHATASE 60 U/L (45-117); BUN 27 mg/dl (7-24); CHLORIDE 103 mmol/L (98-107); LIPASE 945 U/L (73-393); PHOSPHOROUS 3.7 mg/dL (2.5-4.9); POTASSIUM 4.6 mmol/L (3.5-5.1); SGOT/AST 27 IU/L (3-35); SGPT/ALT 23 U/L (12-78); SODIUM 139 mmol/L (136-145); TOTAL PROTEIN 6.8 gm/dL (6.4-8.2)
[2018-01-06 07:34] LABS: ACT PARTIAL THROMBO TIME 22.1 SECONDS (20.8-31.5)
[2018-01-06 08:00] VITALS: BP 114/60
[2018-01-06 12:00] VITALS: BP 107/55
[2018-01-06 16:00] VITALS: BP 106/72
== END 2018-01-06 18:02 | disposition home health service (06) | DRG 292 ==
LOC: ED 05:11 → 5E 06:37 → EDHOLD 06:37 → 5E 06:53
PROVIDERS: Emergency Medicine; Internal Medicine; Student in an Organized Health Care Education/Training Program
DX: I11.0 Hypertensive heart disease with heart failure (principal); R65.10 Systemic inflammatory response syndrome (SIRS) of non-infectious origin without acute organ dysfunction; E44.0 Moderate protein-calorie malnutrition; E11.65 Type 2 diabetes mellitus with hyperglycemia; G70.00 Myasthenia gravis without (acute) exacerbation; E66.01 Morbid (severe) obesity due to excess calories; Z68.41 Body mass index [BMI] 40.0-44.9, adult; D64.9 Anemia, unspecified; Z66 Do not resuscitate; I50.43 Acute on chronic combined systolic (congestive) and diastolic (congestive) heart failure; G47.00 Insomnia, unspecified; I25.10 Atherosclerotic heart disease of native coronary artery without angina pectoris; F32.9 Major depressive disorder, single episode, unspecified; Z51.5 Encounter for palliative care; K76.0 Fatty (change of) liver, not elsewhere classified; E03.9 Hypothyroidism, unspecified; M48.00 Spinal stenosis, site unspecified; E55.9 Vitamin D deficiency, unspecified; I35.0 Nonrheumatic aortic (valve) stenosis; I42.9 Cardiomyopathy, unspecified; G47.33 Obstructive sleep apnea (adult) (pediatric); N40.0 Benign prostatic hyperplasia without lower urinary tract symptoms; R07.89 Other chest pain; E78.5 Hyperlipidemia, unspecified; Z79.4 Long term (current) use of insulin; Z79.82 Long term (current) use of aspirin; Z79.84 Long term (current) use of oral hypoglycemic drugs; Z79.899 Other long term (current) drug therapy; I25.2 Old myocardial infarction; Z86.73 Personal history of transient ischemic attack (TIA), and cerebral infarction without residual deficits; Z95.0 Presence of cardiac pacemaker; Z82.49 Family history of ischemic heart disease and other diseases of the circulatory system; Z83.3 Family history of diabetes mellitus

== ENCOUNTER 2018-02-06 08:48 | Emergency (ER) | payer MEDICARE, OTHER ==
[~2018-02-06] VITALS: Wt 119.3 kg
[~2018-02-06 08:48] MED LIST changes: +METFORMIN500 MG PO
[2018-02-06 08:51] VITALS: BP 126/76
[2018-02-06] MEDS ORDERED: MOBIC7.5 MG PO (11:07)
== END 2018-02-06 11:10 | disposition home or self-care (01) ==
LOC: ED 08:48
DX: G89.29 Other chronic pain (principal); M25.512 Pain in left shoulder; Z98.890 Other specified postprocedural states; Z95.0 Presence of cardiac pacemaker; Z79.899 Other long term (current) drug therapy; Z79.82 Long term (current) use of aspirin; Z79.4 Long term (current) use of insulin

== ENCOUNTER 2018-03-18 03:01 | Inpatient (IN) | payer MEDICARE, OTHER ==
[~2018-03-18] VITALS: Ht 167.6 cm; Wt 121.6 kg
--- NOTE | ~2018-03-18 | PR ---
[place], [place] PROGRESS NOTE NAME: OMAIRA OROZCO UNIT #: [id number] ROOM: 407 DOCTOR: BOBBY WILLIAM MD BIRTHDATE: [birth year] DOS: 03/20/2018 SUBJECTIVE: The patient is noted comfortable at this time. Complaining of general weakness and fatigue. He has not used the BiPAP at all, stated he could not tolerate it. Denies symptoms of chest pain. Denies symptoms of sputum expectoration. Mild cough is noted. The patient is using oxygen supplementation nasal cannula this morning of assessment. OBJECTIVE: VITAL SIGNS: Which are recorded showed normal temperature, respiratory rate 20, heart rate 89, blood pressure 142/80, pulse ox saturation on nasal cannula was 97% saturation. HEENT: Chronic obesity. Head was atraumatic. Eyes nonicterus. NECK: Supple. CARDIOVASCULAR: S1, S2 audible. LUNGS: Noted with moderate decreased breath sounds in the lungs bilaterally. ABDOMEN: Soft, nontender. Bowel sounds present. EXTREMITIES: Noted without any cyanosis. Edema of the lower extremities was noted. LABORATORY DATA: BMP: BUN 28, creatinine was normal. CBC this morning: Normal WBC count, hemoglobin 11, platelet count is normal. IMPRESSION: 1. The patient has been currently noted with acute rhabdomyolysis which is improving, improving acute respiratory failure, congestive heart failure as well. 2. Resolved lactic acidosis. 3. Obstructive sleep apnea disorder, nonadherence with the treatment. PLAN OF MANAGEMENT: At this time, the patient continues to refuse the use of BiPAP, which will be discontinued. In the meantime, maximize the other medical management for congestive heart failure, other treatment. Usual care, other supportive therapy plan of management and care. [place], [place] PROGRESS NOTE NAME: OMAIRA OROZCO UNIT #: [id number] ROOM: 407 DOCTOR: BOBBY WILLIAM MD BIRTHDATE: [birth year] BOBBY MOBLEY MD CM:PNTRANS [id number] BOBBY PHAN MD 03/30/18 0813 interface
--- NOTE | ~2018-03-18 | EKG ---
[place], [place] ELECTROCARDIOGRAM REPORT NAME: OMAIRA OROZCO UNIT #: [id number] ROOM: 407 DOCTOR: ITZ PHAN MD,BOBBY BIRTHDATE: [birth year] DOS: 03/18/2018 The electrocardiogram was done 03/18/2018 at 3:27 a.m. shows a heart rate for this patient is 95 beats per minute, which is atrial sensed paced rhythm. Further comments about the electrocardiogram could not be done because of the paced rhythm. BOBBY MOBLEY MD CM:EKGRPT:ELECTROCARDIOGRAM REPORT 1715 BOBBY PHAN MD
--- NOTE | ~2018-03-18 | PR ---
[place], [place] PROGRESS NOTE NAME: OMAIRA OROZCO UNIT #: [id number] ROOM: 407 DOCTOR: BOBBY WILLIAM MD BIRTHDATE: [birth year] DOS: 03/21/2018 PULMONARY PROGRESS NOTE SUBJECTIVE: The patient noted comfortable, resting in the bed, noted with mild shortness of breath, coughing has been noted absent. There were no symptoms of chest pain. General weakness and fatigue was still reported by the patient. BiPAP was discontinued yesterday because of nonadherence. OBJECTIVE: VITAL SIGNS: For the patient this morning, normal temperature, respiratory rate 20, heart rate 82, blood pressure 121/87. Pulse oxygen saturation of the patient recorded on room air is 96% saturation at rest. HEENT: Examination shows head was atraumatic. Eyes nonicterus. NECK: Supple. CARDIOVASCULAR: S1, S2 is audible. LUNGS: The patient was noted with mild crackles in the left lung base, remaining lung was clear. ABDOMEN: Soft, nontender. Bowel sounds present. EXTREMITIES: No new changes. The edema of the lower extremity seemed to be resolving gradually. LABORATORY DATA: BMP today: BUN 28, creatinine was normal. Potassium 3.3. CBC, hemoglobin 11.5, WBC count normal, platelet count was normal. IMPRESSION: 1. The patient has been noted with gradual resolution and improvement in acute congestive heart failure with acute respiratory symptoms progressively. 2. Obstructive sleep apnea disorder, nonadherence with the treatment. Small amount of crackles were noted in the left lower lobe, may be related to the area of atelectasis or fluid in that area. PLAN OF MANAGEMENT: Continuation of the current plan of management, diuretics, mostly is the mainstay of treatment. Continue the supplementation of potassium. Other supportive therapy, plan of management as in progress. Usual care. [place], [place] PROGRESS NOTE NAME: OMAIRA OROZCO UNIT #: [id number] ROOM: 407 DOCTOR: BOBBY WILLIAM MD BIRTHDATE: [birth year] BOBBY MOBLEY MD CM:PNTRANS [id number] [phone] BOBBY PHAN MD 03/21/18 2247 interface
--- NOTE | ~2018-03-18 | PR ---
[place], [place] PROGRESS NOTE NAME: OMAIRA OROZCO UNIT #: [id number] ROOM: 407 DOCTOR: BOBBY WILLIAM MD BIRTHDATE: [birth year] DOS: 03/19/2018 PULMONARY PROGRESS NOTE SUBJECTIVE: The patient noted comfortable, noted fully awake and alert. He used the BiPAP for short period of time yesterday. Denies symptoms of chest pain or hemoptysis. The patient has been noted comfortable at this time, lying in the bed. Using oxygen supplementation nasal cannula. OBJECTIVE: VITAL SIGNS: Normal temperature, respiratory rate 20, heart rate 69, blood pressure 108/60. Pulse oxygen saturation on 2 liters 94% saturation. HEENT: No acute change. NECK: Supple. CARDIOVASCULAR: S1, S2 audible. LUNGS: Noted without any wheezing or crackles. ABDOMEN: Soft, nontender. EXTREMITIES: Resolving edema. LABORATORY DATA: Chest x-ray in the lab that was done this morning, PA lateral view noted without any evidence of pleural fluid, previously noted pulmonary venous congestion seemed to be completely resolved. IMPRESSION: 1. The patient who has been currently noted with progressive improvement and the resolution of the acute respiratory symptoms with resolving acute congestive heart failure. 2. Rhabdomyolysis was also noted secondary to the fall at home. 3. Resolution of lactic acidosis. PLAN OF MANAGEMENT: Continuation of the patient's current therapy, plan of management as in progress with use of bronchodilators, oxygen supplementation. Monitor kidney function. The CPK is also resolving noted 6 and 53 today. Labs, the PT, PTT were noted as normal. [place], [place] PROGRESS NOTE NAME: OMAIRA OROZCO UNIT #: [id number] ROOM: 407 DOCTOR: BOBBY WILLIAM MD BIRTHDATE: [birth year] BOBBY MOBLEY MD CM:PNTRANS [phone] BOBBY PHAN MD 03/30/18 0813 interface
--- NOTE | ~2018-03-18 | CON ---
[place], [place] REPORT OF CONSULTATION NAME: OMAIRA OROZCO [facility] #: [id number] UNIT #: [id number] ROOM: 407 DOCTOR: ITZ PHAN MD,BOBBY BIRTHDATE: [birth year] DOS: 03/18/2018 PULMONARY CONSULTATION, EVALUATION AND MANAGEMENT REASON FOR CONSULTATION: Assess the patient's current change in mental status of the patient with ongoing other medical illnesses. HISTORY OF PRESENT ILLNESS: A 72-year-old white male patient with a past known several medical problems for the patient that included congestive heart failure, diabetes mellitus and chronic obesity. The patient fell down at home before 2 days prior to the admission to the hospital. The patient fell out of the bed, resulting in injury to the shoulder was laid on the floor, unknown amount of time. The patient was contacted by the local police and went to the hospital. The patient has been noted with a strong urine smell for this patient and noted with hallucinations at times. The patient stated that the patient told he has niece of this patient that he has a loaded 38 caliber gun when the police arrived. The patient later on reported that the gun was not loaded. He has been reported symptoms of coughing, which was noted with white sputum expectoration at home. Denies symptoms of acute shortness of breath at rest, but later on reported symptoms of shortness of breath. He denies any symptoms of acute chest pain. The patient was denying any wheezing as he was seen in the Intensive Care Unit. He had not been noted any symptoms of hemoptysis. REVIEW OF SYSTEMS: The patient is very limited completely for this patient as follows: CONSTITUTIONAL: He was noted symptom of fatigue and tiredness at this time. Denies symptoms of fever or chills at home. EYES: Denies any burning, redness, or tenderness. EARS, NOSE, THROAT SYMPTOMS: Denies sore throat, hoarseness, otalgia or postnasal drainage. CARDIOVASCULAR: Denies anginal pain, edema, pain of the lower extremity noted with increased edema for the last few days as per patient, but there is no pain reported. GASTROINTESTINAL: Denies dysphagia, nausea, vomiting, diarrhea, abdominal pain, hematemesis, melena, hematochezia, dysphagia, or abnormal weight loss. Stated pain described in the upper portion of the abdomen of the patient couple of weeks ago, which resolved spontaneously, did not continue for a long time as per patient. GENITOURINARY: No dysuria, suprapubic pain or hematuria. MUSCULOSKELETAL: Denies acute joint pain, redness, or tenderness. SKIN: The patient denied lesions or rashes. CENTRAL NERVOUS SYSTEM: Generally weak and fatigued was reported by the patient. The remaining systems were reviewed, they were noted all negative. PAST MEDICAL HISTORY: The patient was known with history of: 1. BPH. 2. Coronary artery disease and acute congestive heart failure with systolic, diastolic function unknown at the present time. 3. History of degenerative arthritis. 4. Diverticulosis. [place], [place] REPORT OF CONSULTATION NAME: OMAIRA OROZCO UNIT #: [id number] ROOM: 407 DOCTOR: BOBBY WILLIAM MD BIRTHDATE: [birth year] 5. Benign essential hypertension. 6. History of transient ischemic attack. 7. Type 2 diabetes mellitus. 8. Hyperlipidemia. 9. Obstructive sleep apnea disorder, nonadherence with the treatment. 10. Vitamin D deficiency. 11. History of myasthenia gravis. 12. History of hypothyroidism. PAST SURGICAL HISTORY: 1. Reported for I and D for the patient of the left shoulder. 2. Pacemaker insertion. SOCIAL HISTORY: The patient stated single. Lives at home. Denies history of alcohol use, illicit drug use. Denies any history of tobacco use. FAMILY HISTORY: Both parents with complications related to coronary artery disease. HOME MEDICATIONS: Recorded for the patient at time of admission for the patient was reported as use of Norvasc, baby aspirin, Lipitor, Lasix, Lantus insulin, levothyroxine, lisinopril, omeprazole, pyridostigmine and Flomax. DRUG ALLERGY: The patient noted no known drug allergies. PHYSICAL EXAMINATION: GENERAL: This is a 72-year-old white male patient who has been currently noted comfortably lying in the bed without any acute distress. The patient had been observed periods of apnea during sleep and hypoxia. Has not been noted any symptoms of distress. VITAL SIGNS: Height was recorded by the nursing staff for the current admission with height of 5 feet 10 inches, weight of 277 pounds, BMI 44.7. Vital signs show normal temperature, respiratory 15-26, heart rate of 80-84, blood pressure 90/48-127/82. Intake for the patient 1000, output 300 mL since admission. Pulse ox saturation on 2 liters nasal cannula 96% saturation. HEENT: Examination shows head was atraumatic. Eyes nonicterus. Severely reduced posterior pharyngeal space. NECK: Neck was short and obese. CARDIOVASCULAR: S1, S2 audible. LUNGS: Noted mild to moderate reduction in breath sounds without any wheezing or crackles. ABDOMEN: Soft with moderate severe obesity. Bowel sounds present. EXTREMITIES: Show 2 to 3+ pitting edema with some superficial cellulitis of the patient changes noted in the legs bilaterally. SKIN: Visible skin without any lesions or rashes. MUSCULOSKELETAL: Without any acute deformities. CENTRAL NERVOUS SYSTEM: General weakness and fatigue were noted without any gross focal neurologic deficit, limited examination of this patient. LABORATORY DATA: Reviewed for the patient for this consultation. CBC that was [place], [place] REPORT OF CONSULTATION NAME: OMAIRA OROZCO UNIT #: [id number] ROOM: 407 DOCTOR: ITZ PHAN MD,[facility] BIRTHDATE: [birth year] done early this morning, the patient admission, WBC count 9.1, hemoglobin 10.8, hematocrit 33.5, platelet count was normal. Lactic acid 2.7 with subsequent lactic acid for the patient this morning was noted after fluid resuscitation 1.4. The urine ketones noted negative. The ammonia level noted 17. CMP for the patient this morning, BUN 27, creatinine 1.91, glucose 202. Magnesium, which is noted 1.1. CPK 1407. CK-MB 5.5. The subsequent second CPK was noted 1414 with MB 6.1. Troponin remains normal. Another set of CK-MB, troponin of the patient, CPK 1432, CK-MB 5.9 with a troponin 0.40. Urine drug screen was noted as negative. X-ray of the left shoulder, which he has taken without any acute fractures. CT scan of the head without contrast on an emergent patient this morning was noted as negative. Chest x-ray 1 view of the patient, which was done in the Emergency Room noted with very limited study for the patient with the periods of cardiomegaly, pulmonary venous congestion, possibility of left pleural fluid with atelectasis cannot be excluded. The findings were noted difficult to be exactly seen for the patient because of just simple one portable chest x-ray. Arterial blood gas, pH of 7.39, pCO2 of 43, pO2 82.3. IMPRESSION: 1. The patient who has been currently admitted to the hospital noted with change in mental status, most likely related to current acute illness with possibility of congestive heart failure. 2. Acute kidney injury of the patient as well. 3. Elevation of CPK and MB most likely related to early rhabdomyolysis of the patient with current fall and being noted on the floor inactive resulting in rhabdomyolysis. 4. The patient with severe hypomagnesemia as well. 5. Lactic acidosis secondary to the above. Rule out sepsis for this patient and/or other infection to other parts of the body. 6. History of obstructive sleep apnea disorder with pauses noted of the patient during sleep and hypoxia. 7. Congestive heart failure, possibly systolic, diastolic dysfunction. Further workup needs to be done, echocardiogram for the patient with the help of Cardiology Services as well. Care for diuresis should be given a wide massive amount of fluid administration to prevent the fluid overload for the patient because of elevation of BUN and creatinine. PLAN OF MANAGEMENT: Other supportive therapy, plan of management continue. Continue antibiotic for the patient for medical management of the finding of early cellulitis of lower extremities. Monitor mental status changes as well. Usual care, other supportive therapy, plan of management and care plan as in progress. Usual treatment changes. Other supportive plan of management of the patient, use of the BiPAP during sleep at setting of 16/8 was ordered. This should resolve the sleep apnea disorder for the patient, which has been known previously. Collect any sputum for Gram stain and culture if reported by the patient. Continuation of the other previous therapy, plan of management and care plan as previously in progress. Usual care with additional treatment changes to be made for the patient based on the progression of the illness. Thanks for allowing me to participate in the care of this patient. [place], [place] REPORT OF CONSULTATION NAME: OMAIRA OROZCO UNIT #: [id number] ROOM: 407 DOCTOR: BOBBY WILLIAM MD BIRTHDATE: [birth year] BOBBY MOBLEY MD CM:CONSTR:REPORT OF CONSULTATION 1419 03/18/180 interface
--- NOTE | ~2018-03-18 | PR ---
[place], [place] PROGRESS NOTE NAME: OMAIRA OROZCO UNIT #: [id number] ROOM: 407 DOCTOR: ITZ PHAN MD,BOBBY BIRTHDATE: [birth year] DOS: 03/22/2018 SUBJECTIVE: He has been still noted significant physically debilitated, but respiratory medina doing well, remains on and off of oxygen. Denies acute shortness of breath at rest. Minimal cough was noted without any sputum expectoration at time. The patient has been getting current physical therapy as well. OBJECTIVE: VITAL SIGNS: Normal temperature, respiratory rate 18, heart rate 88, blood pressure 90/54 to 109/55. Pulse ox saturation on room air 98% saturation. HEAD, EYES, EARS, NOSE, AND THROAT: Head was atraumatic. Eyes nonicterus. NECK: Supple. CARDIOVASCULAR: S1, S2 is audible. LUNGS: The patient was noted without any wheezing or crackles at the present time. ABDOMEN: Noted soft and obese. EXTREMITIES: The patient noted chronic changes with edema of the lower extremity, still noted 1 to 2+. LABORATORY DATA: BMP today, BUN of 25. Potassium was normal. CO2 of 34. IMPRESSION: 1. The patient with a gradual resolution was noted for acute congestive heart failure with respiratory failure and debility. 2. Chronic obesity. PLAN OF TREATMENT: Continue physical therapy, occupation therapy, bronchodilators and the diuretics. Oxygen supplementation in case of a pulse ox saturation less than 92%. The patient was also known with history of obstructive sleep apnea disorder, remains normal status with the treatment. BOBBY MOBLEY MD CM:PNTRANS [id number] BOBBY PHAN MD 03/30/18 0814 interface
[~2018-03-18 03:01] MED LIST changes: +MOBIC7.5 MG PO
[2018-03-18 03:05] VITALS: BP 98/48
[2018-03-18] MEDS ORDERED: OMEPRAZOLE20 M2 PO (03:40)
[2018-03-18 03:41] LABS: BASO % 0.4 % (0.0-1.0); EOS # 0.1 10*3/uL (0.0-0.4); EOS % 1.2 % (1.0-4.0); HEMATOCRIT 33.5 % (42.0-52.0); HEMOGLOBIN 10.8 g/dl (14.0-18.0); LYMPH # 1.6 10*3/uL (1.3-4.4); LYMPH % 17.7 % (27.0-41.0); MEAN CELL VOLUME 89.1 fl (80.0-94.0); MEAN CORPUSCULAR HGB 28.7 pg (27.0-31.0); MEAN CORPUSCULAR HGB CONC 32.2 g/dl (33.0-37.0); MEAN PLATELET VOLUME 9.2 fl (9.6-12.3); MONO # 0.6 10*3/uL (0.1-1.0); MONO % 6.4 % (3.0-9.0); NEUT # 6.7 10*3/uL (2.3-7.9); NEUT % 73.9 % (47.0-73.0); PLATELET COUNT AUTOMATED 302 10*3/uL (130-400); RED BLOOD COUNT 3.76 10*6/uL (4.50-5.90); RED CELL DISTRI WIDTH 14.5 % (0-14.5); WHITE BLOOD COUNT 9.1 10*3/uL (4.8-10.8)
[2018-03-18] MEDS ORDERED: NORVASC5 MG PO (03:42)
[2018-03-18] MEDS ORDERED: CLOPIDOGREL75 MG PO (03:46)
[2018-03-18 03:57] LABS: ALBUMIN 2.8 gm/dl (3.1-4.5); ALKALINE PHOSPHATASE 60 U/L (45-117); BUN 27 mg/dl (7-24); CHLORIDE 101 mmol/L (98-107); CREATININE 1.91 mg/dL (0.70-1.30); LIPASE 97 U/L (73-393); POTASSIUM 4.1 mmol/L (3.5-5.1); SGOT/AST 51 IU/L (3-35); SGPT/ALT 23 U/L (12-78); SODIUM 137 mmol/L (136-145); TOTAL PROTEIN 6.5 gm/dL (6.4-8.2); TROPONIN I 0.036 ng/ml (<0.045)
[2018-03-18 04:04] LABS: CKMB 5.5 ng/ml (0.5-3.6)
[2018-03-18 04:09] LABS: CPK 1407 U/L (39-308); ETHYL ALCOHOL < 3.0 mg/dl (<3)
[2018-03-18 04:59] LABS: URINE AMPHETAMINES < 1000 (1000ng/ml); URINE BARBITURATES < 200 (200ng/ml); URINE BENZODIAZEPINES < 200 (200ng/ml); URINE CANNABINOIDS (THC) < 50 (50ng/ml); URINE COCAINE < 300 (300ng/ml); URINE METHADONE < 300 (300ng/ml); URINE OPIATES < 300 (300ng/ml)
[2018-03-18 05:02] LABS: URINE PHENCYCLIDINE < 25 (25ng/ml)
[2018-03-18 05:13] LABS: BILIRUBIN 1+ (NEGATIVE); BLOOD 3+ (NEGATIVE); CLARITY SL CLOUDY (CLEAR); COLOR YELLOW (YELLOW); GLUCOSE NEGATIVE (NEGATIVE); KETONE NEGATIVE (NEGATIVE); LEUKO ESTERASE NEGATIVE (NEGATIVE); NITRITE NEGATIVE (NEGATIVE); PH 5.5 (5.0-9.0); SPECIFIC GRAVITY >= 1.030 (1.005-1.030); UROBILINOGEN 0.2 E.U./dl (0.2-1.0)
[2018-03-18 05:15] LABS: HYALINE CAST 45-50
[2018-03-18 05:16] LABS: WBC 0-2 wbc/hpf (0-5)
[2018-03-18 06:20] VITALS: BP 106/60
[2018-03-18 07:10] LABS: TROPONIN I 0.04 ng/ml (<0.045)
[2018-03-18 07:27] LABS: CKMB 5.9 ng/ml (0.5-3.6)
[2018-03-18 08:00] VITALS: BP 100/80
[2018-03-18 09:50] LABS: TROPONIN I 0.042 ng/ml (<0.045)
[2018-03-18 09:53] LABS: CKMB 6.1 ng/ml (0.5-3.6)
[2018-03-18 11:15] LABS: ABG BASE EXCESS 1.6 mmol/L (-2.0-2.0); ABG HCO3 26.2 mmol/l (22-26); ABG O2 SATURATION 95.8 % (95-97); ARTERIAL BLOOD GAS PCO2 43.5 mmHg (35-45); ARTERIAL BLOOD GAS PH 7.397 (7.35-7.45); ARTERIAL BLOOD GAS PO2 82.3 mmHg (80-90)
[2018-03-18 12:00] VITALS: BP 127/82
[2018-03-18 16:00] VITALS: BP 125/67
[2018-03-18 20:00] VITALS: BP 126/74
[2018-03-19] VITALS: BP 117/68
[2018-03-19 07:12] LABS: BASO % 0.1 % (0.0-1.0); HEMATOCRIT 33.1 % (42.0-52.0); HEMOGLOBIN 10.6 g/dl (14.0-18.0); LYMPH # 0.8 10*3/uL (1.3-4.4); LYMPH % 10.9 % (27.0-41.0); MEAN CELL VOLUME 90.7 fl (80.0-94.0); MEAN PLATELET VOLUME 9.1 fl (9.6-12.3); MONO # 0.4 10*3/uL (0.1-1.0); NEUT # 6.2 10*3/uL (2.3-7.9); NEUT % 83.5 % (47.0-73.0); PLATELET COUNT AUTOMATED 289 10*3/uL (130-400); RED BLOOD COUNT 3.65 10*6/uL (4.50-5.90); RED CELL DISTRI WIDTH 14.3 % (0-14.5); WHITE BLOOD COUNT 7.4 10*3/uL (4.8-10.8)
[2018-03-19 07:33] LABS: ALBUMIN 2.5 gm/dl (3.1-4.5); ALKALINE PHOSPHATASE 52 U/L (45-117); BUN 26 mg/dl (7-24); CHLORIDE 107 mmol/L (98-107); PHOSPHOROUS 2.5 mg/dL (2.5-4.9); POTASSIUM 4.2 mmol/L (3.5-5.1); SGOT/AST 37 IU/L (3-35); SGPT/ALT 21 U/L (12-78); SODIUM 141 mmol/L (136-145)
[2018-03-19 07:44] LABS: ACT PARTIAL THROMBO TIME 25.9 SECONDS (20.8-31.5); INTERNATIONAL NORM RATIO 1.1 (2.0-3.5)
[2018-03-19 08:00] VITALS: BP 136/74
[2018-03-19 08:02] LABS: CPK 653 U/L (39-308)
[2018-03-19 08:30] LABS: VITAMIN D, 25-HYDROXY 14.7 ng/mL (30-100)
[2018-03-19 12:00] VITALS: BP 108/60
[2018-03-19 16:00] VITALS: BP 139/82
[2018-03-19 20:00] VITALS: BP 123/65
[2018-03-20] VITALS: BP 136/74
[2018-03-20 06:12] LABS: BASO % 0.3 % (0.0-1.0); EOS # 0.2 10*3/uL (0.0-0.4); EOS % 1.6 % (1.0-4.0); HEMATOCRIT 35.1 % (42.0-52.0); HEMOGLOBIN 11.1 g/dl (14.0-18.0); LYMPH % 20.7 % (27.0-41.0); MEAN CELL VOLUME 90.5 fl (80.0-94.0); MEAN CORPUSCULAR HGB 28.6 pg (27.0-31.0); MEAN CORPUSCULAR HGB CONC 31.6 g/dl (33.0-37.0); MEAN PLATELET VOLUME 8.8 fl (9.6-12.3); MONO # 0.6 10*3/uL (0.1-1.0); MONO % 6.1 % (3.0-9.0); NEUT % 70.9 % (47.0-73.0); PLATELET COUNT AUTOMATED 321 10*3/uL (130-400); RED BLOOD COUNT 3.88 10*6/uL (4.50-5.90); RED CELL DISTRI WIDTH 14.6 % (0-14.5); WHITE BLOOD COUNT 9.8 10*3/uL (4.8-10.8)
[2018-03-20 06:32] LABS: BUN 28 mg/dl (7-24); CHLORIDE 105 mmol/L (98-107); POTASSIUM 3.6 mmol/L (3.5-5.1); SODIUM 142 mmol/L (136-145)
[2018-03-20 06:33] LABS: CPK 293 U/L (39-308)
[2018-03-20 08:00] VITALS: BP 140/76
[2018-03-20 12:00] VITALS: BP 142/80
[2018-03-20 16:00] VITALS: BP 115/66
[2018-03-20 20:00] VITALS: BP 137/81
[2018-03-21] VITALS: BP 125/70
[2018-03-21 06:59] LABS: BASO % 0.5 % (0.0-1.0); EOS # 0.2 10*3/uL (0.0-0.4); EOS % 2.6 % (1.0-4.0); HEMATOCRIT 36.9 % (42.0-52.0); HEMOGLOBIN 11.7 g/dl (14.0-18.0); LYMPH # 2.6 10*3/uL (1.3-4.4); LYMPH % 30.5 % (27.0-41.0); MEAN CELL VOLUME 89.8 fl (80.0-94.0); MEAN CORPUSCULAR HGB 28.5 pg (27.0-31.0); MEAN CORPUSCULAR HGB CONC 31.7 g/dl (33.0-37.0); MEAN PLATELET VOLUME 9.3 fl (9.6-12.3); MONO # 0.8 10*3/uL (0.1-1.0); MONO % 9.2 % (3.0-9.0); NEUT # 4.8 10*3/uL (2.3-7.9); NEUT % 56.5 % (47.0-73.0); PLATELET COUNT AUTOMATED 352 10*3/uL (130-400); RED BLOOD COUNT 4.11 10*6/uL (4.50-5.90); RED CELL DISTRI WIDTH 14.7 % (0-14.5); WHITE BLOOD COUNT 8.5 10*3/uL (4.8-10.8)
[2018-03-21 07:12] LABS: BUN 28 mg/dl (7-24); CHLORIDE 101 mmol/L (98-107); CREATININE 0.97 mg/dL (0.70-1.30); POTASSIUM 3.3 mmol/L (3.5-5.1); SODIUM 141 mmol/L (136-145)
[2018-03-21 08:00] VITALS: BP 121/87
[2018-03-21 12:00] VITALS: BP 103/79
[2018-03-21 16:00] VITALS: BP 118/75
[2018-03-21 20:14] VITALS: BP 95/56
[2018-03-22 00:03] VITALS: BP 109/55
[2018-03-22 06:38] LABS: BUN 25 mg/dl (7-24); CHLORIDE 101 mmol/L (98-107); CREATININE 0.97 mg/dL (0.70-1.30); POTASSIUM 3.7 mmol/L (3.5-5.1); SODIUM 140 mmol/L (136-145)
[2018-03-22 08:00] VITALS: BP 90/54
[2018-03-22 12:00] VITALS: BP 104/62
[2018-03-22] MEDS ORDERED: KLOR-CON M2020 ME1 PO (14:18)
[2018-03-22] MEDS ORDERED: KEFLEX 500 MG E2 CAP PO (14:18)
[2018-03-22] MEDS ORDERED: LANTUS SOL100 UNIT/1 SQ (14:18)
[2018-03-22] MEDS ORDERED: VITAMIN D-32000 UNIT PO (14:18)
== END 2018-03-22 15:30 | disposition home health service (06) | DRG 682 ==
LOC: ED 03:01 → ICCU 04:28 → EDHOLD 04:28 → ICCU 04:51 → 4E 12:36
PROVIDERS: Emergency Medicine; Internal Medicine; Internal Medicine Critical Care Medicine; Internal Medicine Nephrology; Student in an Organized Health Care Education/Training Program
DX: N17.0 Acute kidney failure with tubular necrosis (principal); I50.43 Acute on chronic combined systolic (congestive) and diastolic (congestive) heart failure; G93.41 Metabolic encephalopathy; E44.0 Moderate protein-calorie malnutrition; L03.115 Cellulitis of right lower limb; E11.65 Type 2 diabetes mellitus with hyperglycemia; E66.01 Morbid (severe) obesity due to excess calories; E87.2 Acidosis; M62.82 Rhabdomyolysis; L03.116 Cellulitis of left lower limb; Z68.41 Body mass index [BMI] 40.0-44.9, adult; E83.42 Hypomagnesemia; I11.0 Hypertensive heart disease with heart failure; R26.2 Difficulty in walking, not elsewhere classified; W18.39XA Other fall on same level, initial encounter; D72.810 Lymphocytopenia; D64.9 Anemia, unspecified; R79.89 Other specified abnormal findings of blood chemistry; K59.00 Constipation, unspecified; E78.5 Hyperlipidemia, unspecified; G70.00 Myasthenia gravis without (acute) exacerbation; N40.0 Benign prostatic hyperplasia without lower urinary tract symptoms; M51.36 Other intervertebral disc degeneration, lumbar region; M25.512 Pain in left shoulder; G89.29 Other chronic pain; I25.10 Atherosclerotic heart disease of native coronary artery without angina pectoris; G47.33 Obstructive sleep apnea (adult) (pediatric); K57.90 Diverticulosis of intestine, part unspecified, without perforation or abscess without bleeding; Z60.2 Problems related to living alone; Z66 Do not resuscitate; Z51.5 Encounter for palliative care; Y93.89 Activity, other specified; Y92.89 Other specified places as the place of occurrence of the external cause; Y99.8 Other external cause status; Z79.4 Long term (current) use of insulin; Z86.73 Personal history of transient ischemic attack (TIA), and cerebral infarction without residual deficits; Z79.899 Other long term (current) drug therapy; Z79.82 Long term (current) use of aspirin; I25.2 Old myocardial infarction; Z95.0 Presence of cardiac pacemaker; Z82.49 Family history of ischemic heart disease and other diseases of the circulatory system; Z83.3 Family history of diabetes mellitus

== ENCOUNTER → 2018-04-22 | Outpatient (CLI) | payer MEDICARE, OTHER ==
[~2018-04-22] MED LIST changes: +KEFLEX 500 MG E2 CAP PO; +KLOR-CON M2020 ME1 PO; +NORVASC5 MG PO; +OMEPRAZOLE20 M2 PO; +VITAMIN D-32000 UNIT PO
== END | disposition home or self-care (01) ==
LOC: WOUNDCARE 04-21 08:34
DX: I87.312 Chronic venous hypertension (idiopathic) with ulcer of left lower extremity (principal); E11.622 Type 2 diabetes mellitus with other skin ulcer; L97.321 Non-pressure chronic ulcer of left ankle limited to breakdown of skin; E11.40 Type 2 diabetes mellitus with diabetic neuropathy, unspecified; I25.2 Old myocardial infarction; Z91.81 History of falling; Z86.73 Personal history of transient ischemic attack (TIA), and cerebral infarction without residual deficits; Z95.0 Presence of cardiac pacemaker

== ENCOUNTER 2019-02-14 18:21 | Inpatient (IN) | payer MEDICARE ==
[~2019-02-14] VITALS: Ht 167.6 cm; Wt 120.8 kg
--- NOTE | ~2019-02-14 | EKG ---
[place], [place] ELECTROCARDIOGRAM REPORT NAME: OMAIRA OROZCO UNIT #: [id number] ROOM: 526 DOCTOR: MARY DRAFT REPORT BIRTHDATE: [birth year] [facility] Test Date: 2019-02-15 Test Time: 00:07:36 Pat Name: OMAIRA OROZCO Department: Room: 526 Gender: M Converting Supervisor: Corrina Short : 1945 Requested By: SONI BRYSON Order Number: [id number] Reading MD: Rigo Barnes MD Measurements Intervals [place] Rate: 60 P: 23 MD: 184 QRS: -122 QRSD: 179 T: 95 QT: 504 QTc: 504 Interpretive Statements Sinus rhythm A sensed and V-paced rhythm Probable left atrial enlargement IVCD, consider atypical RBBB Baseline wander in lead(s) V2,V4 Compared to ECG 01/15/2019 14:31:45 Ventricular-paced complex(es) or rhythm no longer present Atrial-sensed ventricular-paced complex(es) or rhythm no longer present Electronically Signed On 02-15-2019 15:33:37 PDT by Rigo Barnes MD CM:EKGRPT:ELECTROCARDIOGRAM REPORT 0007 1533 SONI BRYSON MD EPIPHJAN DRAFT REPORT SONI BRYSON MD
--- NOTE | ~2019-02-14 | EKG ---
[place], [place] ELECTROCARDIOGRAM REPORT NAME: OMAIRA OROZCO UNIT #: [id number] ROOM: 526 DOCTOR: MARY DRAFT REPORT BIRTHDATE: [birth year] [facility] Test Date: 2019-02-14 Test Time: 18:29:19 Pat Name: OMAIRA OROZCO Department: Room: 526 Gender: M Arabic Teacher: Lisa Evangelista : 1945 Requested By: SONI BRYSON Order Number: [id number] Reading MD: Rigo Barnes MD Measurements Intervals [place] Rate: 84 P: 52 IA: 204 QRS: 253 QRSD: 175 T: 82 QT: 459 QTc: 543 Interpretive Statements Atrial-sensed ventricular-paced complexes No further analysis attempted due to paced rhythm Compared to ECG 01/15/2019 14:31:45 No significant changes Electronically Signed On 02-15-2019 15:31:17 PDT by Rigo Barnes MD CM:EKGRPT:ELECTROCARDIOGRAM REPORT [id number] 1531 SONI HERNANDEZ DRAFT REPORT SONI BRYSON MD
--- NOTE | ~2019-02-14 | EKG ---
[place], [place] ELECTROCARDIOGRAM REPORT NAME: OMAIRA OROZCO UNIT #: [id number] ROOM: 526 DOCTOR: MARY DRAFT REPORT BIRTHDATE: [birth year] [facility] Test Date: 2019-02-14 Test Time: 21:03:21 Pat Name: OMAIRA OROZCO Department: Room: 526 Gender: M Management Manager: Lisa Evangelista : 1945 Requested By: SONI BRYSON Order Number: [id number] Reading MD: Rigo Barnes MD Measurements Intervals [place] Rate: 70 P: -8 [place]: 212 QRS: 241 QRSD: 170 T: 79 QT: 481 QTc: 520 Interpretive Statements Atrial-sensed ventricular-paced rhythm No further analysis attempted due to paced rhythm Compared to ECG 01/15/2019 14:31:45 No significant changes Electronically Signed On 02-15-2019 15:32:11 PDT by Rigo Barnes MD CM:EKGRPT:ELECTROCARDIOGRAM REPORT 02 1532 SONI HERNANDEZ DRAFT REPORT SONI BRYSON MD
[2019-02-14 18:21] VITALS: BP 121/68
[~2019-02-14 18:21] MED LIST changes: +COREG3.125 MG PO; +GENGRAF100 MG PO; +GUAIFENESIN600 MG PO; +LISINOPRIL10 M1 PO; +LISINOPRIL5 MG PO; +METFORMIN ER500 MG PO; +ROSUVASTATIN CA20 MG PO; +VITAMIN D31000 UNI1 PO; +XARELTO1 EACH PO
--- NOTE | 2019-02-14 18:38 | NUR ---
Pt refused IV ascess at this time.
[2019-02-14 18:59] LABS: BASO % 0.2 % (0.0-1.0); EOS # 0.1 10*3/uL (0.0-0.4); EOS % 1.2 % (1.0-4.0); HEMATOCRIT 36.8 % (42.0-52.0); HEMOGLOBIN 11.7 g/dl (14.0-18.0); LYMPH # 2.8 10*3/uL (1.3-4.4); LYMPH % 30.2 % (27.0-41.0); MEAN CELL VOLUME 94.1 fl (80.0-94.0); MEAN CORPUSCULAR HGB 29.9 pg (27.0-31.0); MEAN CORPUSCULAR HGB CONC 31.8 g/dl (33.0-37.0); MEAN PLATELET VOLUME 9.7 fl (9.6-12.3); MONO # 0.7 10*3/uL (0.1-1.0); MONO % 7.1 % (3.0-9.0); NEUT # 5.6 10*3/uL (2.3-7.9); PLATELET COUNT AUTOMATED 310 10*3/uL (130-400); RED BLOOD COUNT 3.91 10*6/uL (4.50-5.90); RED CELL DISTRI WIDTH 14.2 % (0-14.5); WHITE BLOOD COUNT 9.2 10*3/uL (4.8-10.8)
--- NOTE | 2019-02-14 19:06 | NUR ---
UNABLE TO SCAN ZOFRAN PO MEDICATION,PHARMACY CONTACTED.
[2019-02-14 19:29] LABS: ALBUMIN 3.5 gm/dl (3.1-4.5); CREATININE 1.91 mg/dL (0.70-1.30); POTASSIUM 5.2 mmol/L (3.5-5.1); TOTAL PROTEIN 7.4 gm/dL (6.4-8.2)
[2019-02-14 19:30] LABS: TROPONIN I 0.017 ng/ml (<0.045)
--- NOTE | 2019-02-14 19:30 | NUR ---
CRITICAL LAB TAKEN LA 2.2. NICO GEOINT ANALYST NOTIFED.
[2019-02-14 19:37] VITALS: BP 130/72
[2019-02-14 19:50] LABS: ACT PARTIAL THROMBO TIME 26.1 SECONDS (20.0-32.1); INTERNATIONAL NORM RATIO 1.1 (2.0-3.5)
[2019-02-14 20:35] VITALS: BP 124/76
[2019-02-14 22:05] VITALS: BP 118/72
--- NOTE | 2019-02-14 22:14 | NUR ---
INFUSION OF MAGNESIUM SULFATE COMPLETED.INFUSION OF NS CONTINUES.
--- NOTE | 2019-02-14 22:55 | NUR ---
NURSE TO NURSE REPORT GIVEN TO THIS RN.PT RESTING IN BED.PT AWAITING ROOM ASSIGNMENT FOR ADMISSION.WILL CONTINUE TO MONITOR.
--- NOTE | 2019-02-14 23:03 | NUR ---
PER DR HUFFMAN PT REPORTS GERD SYMPTOMS AND STATES SHE WILL ORDER MEDICATION FOR PT TO HAVE THIS EVENING.
--- NOTE | 2019-02-14 23:37 | NUR ---
PT IS REFUSING TO DRINK CONTRAST FOR CT SCAN.PT STATES "MAYBE IN THE MORNING".
--- NOTE | 2019-02-14 23:41 | NUR ---
THIS RN CALLED RESIDENT NUMBER AND SPOKE WITH DR ANDERSON AND HE WAS MADE AWARE OF PT REFUSAL OF BARIUM DRINK AND CT SCAN AT THIS TIME.
[2019-02-15 00:55] VITALS: BP 110/64
[2019-02-15 02:00] VITALS: BP 96/50
--- NOTE | 2019-02-15 02:07 | NUR ---
PT LINENS CHANGED AND NYSTATIN CREAM APPLIED TO PT RASH ON ABDOMINAL FOLDS AND GROIN AREA PER EMAR.
[2019-02-15 02:37] VITALS: BP 120/55
--- NOTE | 2019-02-15 02:58 | NUR ---
PT PROVIDED ROOM ASSIGNMENT OF 526.PT TAKEN TO UNIT AT THIS TIME.
[2019-02-15 03:10] VITALS: BP 136/66
--- NOTE | 2019-02-15 03:10 | NUR ---
PATIENT STATED THAT HE WANT RESUSCITATIVE MEASURE IF CARDIAC ARREST. REQUEST NO INTUBATION. VERIFIED BY THIS NURSE AND JULIANA
--- NOTE | 2019-02-15 03:10 | NUR ---
A 73, admitted to 5E, under the services of LINA Mitchell DO with a diagnosis of CHEST PAIN, PANCREATITIS. Chief complaint is ADBOMEN DISCOMFORT. Patient arrived via bed from ER. Monitor applied. Initial assessment completed. Vital signs taken and recorded. LINA MITCHELL DO notified of admission to the unit. Orders received. See assessment for past medical history, medications and allergies. Patient oriented to unit. Clothing/patient valuable form completed. STEPHANIE BEJARANO
--- NOTE | 2019-02-15 03:24 | NUR ---
MADE AWARE THAT PATIENT IS UNBLE TO RECALL MEDICATIONS AND DOES NOT HAVE A LIST. WILL CALL HIS PHARM ONCE AVAILABLE
--- NOTE | 2019-02-15 05:02 | NUR ---
PAM,OMAIRA Kapoor [id number] Please refer to the physician's history and physical for past medical history, comorbid conditions, and allergies. Diagnosis: CHEST PAIN,HYPERKALEMIA,HYPOMAGNESEMIA Ken Score: 14,MODERATE RISK WOUND DESCRIPTIONS: Wound Number: 1 & 2 Bilateral breasts, lower abdominal folds and bilateral groins red satellite areas noted. Musty odor noted. No drainage at time of assessment. No open areas at time of assessment. Wound Number: 3 Location of the wound: tip of penis Thickness: Partial Size: 2.2cm x 0.5cm x 0.1cm Tunneling: none Undermining: none Sinus Tract: none Presence of Exudate: Purulent Amount: Light Color: Red Odor: Musty Periwound Skin Appearance: Normal Wound edges: approximated Pain (associated with wound): tender to touch How does patient state this happened? pt stated this started about 1 week ago Patient has intact scabs areas noted to BLE's. No drainage at time of assessment. No open areas noted at time of assessment. Patient has several partial thickness areas to his face he stated this is from when he got a hair cut and they shaved his hancock off. No drainage at time of assessment. Surface the patient is resting on: Isoflex SKIN PREVENTION RECOMMENDATION: 1. Pressure redistribution support surface as appropriate 2. Elevate heels 3. Remove boots/TEDS every shift and reapply 4. Head of bed 30 degrees as tolerated 5. Assess nutrition and hydration 6. Manage moisture 7. Avoid the use of containment devices while in bed 8. Use absorptive products on surfaces limit layers of linens on bed 9. Turn and reposition every 1-2 hours in bed and every 1 hour in chair as tolerated 10. Weight shifts every 15 minutes while up in chair 11. Offloading with pillows or device to keep heels elevated off bed 12. Monitor skin at least every shift 13. Inspect under medical devices twice a day WOUND TREATMENT RECOMMENDATIONS: Cleanse abdominal folds, bilateral breast and bilateral groins with soap and water apply nystatin powder every 8 hours and prn. D/C nystatin cream. Cleanse tip of penis with soap and water and apply bactroban tid and leave open to air. Wheelchair cushion when oob. Heel raiser pro boots to bilateral feet while in bed.
[2019-02-15 07:26] LABS: ALBUMIN 3.1 gm/dl (3.1-4.5); CREATININE 1.69 mg/dL (0.70-1.30); PHOSPHOROUS 4.2 mg/dL (2.5-4.9); POTASSIUM 4.8 mmol/L (3.5-5.1); TOTAL PROTEIN 6.5 gm/dL (6.4-8.2)
--- NOTE | 2019-02-15 07:39 | NUR ---
PHYSICAL THERAPY Nursing screen received. PT orders also received. Thank you. May Leo,PT
--- NOTE | 2019-02-15 07:47 | NUR ---
Nursing screen received and Occupational Therapy referral received. Thank you. Anjana Jordan OTR/L
--- NOTE | 2019-02-15 08:08 | NUR ---
PT RESTING IN BED. NO DISTRESS NOTED. WILL MONITOR
[2019-02-15 08:33] LABS: VITAMIN D, 25-HYDROXY 25.4 ng/mL (30-100)
--- NOTE | 2019-02-15 09:14 | NUR ---
Patient declines any therapy at this date as he is NPO and awaiting prep for testing today. OTR will recheck at a later time. Anjana Jordan OTR/rocael
--- NOTE | 2019-02-15 09:21 | NUR ---
PHYSICAL THERAPY PAtient requests no PT at this time. PAtient reports he is awaiting multiple tests. Will check patient at a later date. Thank you for this referral. May Leo,PT
--- NOTE | 2019-02-15 10:27 | NUR ---
Dr. Sterling notified of wound care recommendations.
--- NOTE | 2019-02-15 10:37 | NUR ---
CALLED [facility] TO VERIFY HOME MEDS. MED REC UPDATED DR KAY NOTIFIED
--- NOTE | 2019-02-15 11:15 | NUR ---
CM RECIEVED A CALL FROM [facility] IN [place]. STATES THEY RECIEVED A CALL FROM [facility] THAT PT WANTED TO COME THERE. THEY STATE THAT PT IS NOT SERVICE CONNECTED AND HAS NO TRAVEL BENEFITS SO WOULD HAVE TO PAY FOR AMBULANCE TO GET HIM THERE. WILL CONTINUE TO FOLLOW.
[2019-02-15 12:00] VITALS: BP 129/55
--- NOTE | 2019-02-15 12:52 | NUR ---
Mental Health Consultant in to talk to patient. Patient states lives at HOME with ALONE. There are NO steps in the home. Physician: SENA BHATIA Pharmacy: [facility] Home health services: [facility] Patient's level of ADLs: MODERATE ASSIST Patient has working utilities: YES DME: NONE Follow-up physician's appointment after d/c: WILL BE MADE BY PT AFTER DISCHARGE Does patient want to access PORTAL?: NO Discharge plan PT LIVES AT HOME ALONE. DENIES ANY NEEDS ON DISCHARGE. STATES HE HAS [facility] AT HOME. WILL CONTINUE TO FOLLOW. STATES HE WILL HAVE A RIDE HOME ON DISCHARGE.. ANDER WALTON
--- NOTE | 2019-02-15 13:53 | NUR ---
DR KAY NOTIFIED OF PT " FILLING UP FROM LUNCH" BUT DOING WELL OVERALL
--- NOTE | 2019-02-15 13:54 | NUR ---
[facility] REQUEST[facility]
--- NOTE | 2019-02-15 15:00 | NUR ---
PT NIECE HERE AND STATES THAT [facility], NOT [facility]. NIPALOMO STATES THAT SHE WILL CALL OR BRING IN LIST OF PT HOME MEDS ( PT DOES NOT KNOW THEM ) DR KAY NOTIFIED
[2019-02-15 16:00] VITALS: BP 115/55
[2019-02-15] MEDS ORDERED: ASPIRIN81 M1 PO (16:50)
[2019-02-15] MEDS ORDERED: TAMSULOSIN HCL0.4 MG PO (16:51)
[2019-02-15] MEDS ORDERED: PYRIDOSTIGMINE180 MG PO (16:52)
[2019-02-15] MEDS ORDERED: Synthroid,Levo25 MCG PO (16:55)
[2019-02-15] MEDS ORDERED: OMEPRAZOLE40 MG PO (16:56)
[2019-02-15] MEDS ORDERED: LASIX40 MG PO (16:56)
[2019-02-15] MEDS ORDERED: COREG3.125 MG PO (16:57)
[2019-02-15] MEDS ORDERED: CRESTOR20 M1 PO (16:59)
[2019-02-15] MEDS ORDERED: GENGRAF100 MG PO (17:00)
[2019-02-15] MEDS ORDERED: MUCUS RELIEF600 MG PO (17:02)
[2019-02-15] MEDS ORDERED: LANTUS SOL100 UNIT/1 SQ ×2 (17:02→17:30)
[2019-02-15] MEDS ORDERED: VITAMIN D31000 UNI1 PO (17:03)
[2019-02-15] MEDS ORDERED: XARE15TA PO (17:04)
--- NOTE | 2019-02-15 17:16 | NUR ---
MED REC UP TO DATE PER BAMBI KAY NOTIFIED
[2019-02-15] MEDS ORDERED: NYSTOP60 GM T (17:30)
--- NOTE | 2019-02-15 17:41 | NUR ---
PT REFUSED DC WOUND PHOTOS
--- NOTE | 2019-02-15 19:53 | NUR ---
YASHIRAICE HERE TO ORACLE ADF DEVELOPER PATIENT AT THIS TIME. HEP LOCK REMOVED FROM RIGHT ARM. PATIENT LEFT AT THIS TIME.
== END 2019-02-15 19:53 | disposition home health service (06) | DRG 438 ==
LOC: ED 18:21 → EDHOLD 20:54 → 5E 20:54
PROVIDERS: Emergency Medicine; Family Medicine; ADMIT Internal Medicine
DX: K85.90 Acute pancreatitis without necrosis or infection, unspecified (principal); I50.33 Acute on chronic diastolic (congestive) heart failure; E87.2 Acidosis; I82.431 Acute embolism and thrombosis of right popliteal vein; Z68.41 Body mass index [BMI] 40.0-44.9, adult; K80.20 Calculus of gallbladder without cholecystitis without obstruction; K57.90 Diverticulosis of intestine, part unspecified, without perforation or abscess without bleeding; K44.9 Diaphragmatic hernia without obstruction or gangrene; K21.9 Gastro-esophageal reflux disease without esophagitis; K29.70 Gastritis, unspecified, without bleeding; N20.0 Calculus of kidney; E11.65 Type 2 diabetes mellitus with hyperglycemia; L30.4 Erythema intertrigo; E87.5 Hyperkalemia; I11.0 Hypertensive heart disease with heart failure; G47.00 Insomnia, unspecified; N40.0 Benign prostatic hyperplasia without lower urinary tract symptoms; G47.33 Obstructive sleep apnea (adult) (pediatric); E66.01 Morbid (severe) obesity due to excess calories; I35.0 Nonrheumatic aortic (valve) stenosis; I25.10 Atherosclerotic heart disease of native coronary artery without angina pectoris; K76.0 Fatty (change of) liver, not elsewhere classified; E83.42 Hypomagnesemia; B37.2 Candidiasis of skin and nail; E78.5 Hyperlipidemia, unspecified; I10 Essential (primary) hypertension; E11.9 Type 2 diabetes mellitus without complications; Z79.4 Long term (current) use of insulin; I25.2 Old myocardial infarction; Z95.0 Presence of cardiac pacemaker; Z87.442 Personal history of urinary calculi; Z91.81 History of falling; Z86.73 Personal history of transient ischemic attack (TIA), and cerebral infarction without residual deficits; Z82.49 Family history of ischemic heart disease and other diseases of the circulatory system; Z83.3 Family history of diabetes mellitus; Z79.82 Long term (current) use of aspirin; Z79.899 Other long term (current) drug therapy; M94.0 Chondrocostal junction syndrome [Tietze]

== ENCOUNTER 2019-07-08 14:19 | Emergency (ER) | payer MEDICARE ==
[~2019-07-08] VITALS: Ht 167.6 cm; Wt 121.1 kg
[~2019-07-08 14:19] MED LIST changes: +CRESTOR20 M1 PO; +MUCUS RELIEF600 MG PO; +NYSTOP60 GM T; +OMEPRAZOLE40 MG PO; +Synthroid,Levo25 MCG PO; +XARE15TA PO
[2019-07-08] MEDS ORDERED: NYSTATIN CREAM15 GM T (14:52)
[2019-07-08 14:56] VITALS: BP 122/76
== END 2019-07-08 14:58 | disposition home or self-care (01) ==
LOC: ED 14:19
DX: B37.2 Candidiasis of skin and nail (principal); Z79.899 Other long term (current) drug therapy; Z79.82 Long term (current) use of aspirin

== ENCOUNTER 2019-09-13 15:22 | Inpatient (IN) | payer MEDICARE ==
[~2019-09-13] VITALS: Ht 167.6 cm; Wt 131.1 kg
[2019-09-13 15:42] VITALS: BP 116/67
[2019-09-13 15:43] LABS: BASO % 0.5 % (0.0-1.0); EOS # 0.1 10*3/uL (0.0-0.4); EOS % 1.1 % (1.0-4.0); HEMATOCRIT 35.6 % (42.0-52.0); LYMPH # 2.2 10*3/uL (1.3-4.4); LYMPH % 28.8 % (27.0-41.0); MEAN CELL VOLUME 90.8 fl (80.0-94.0); MEAN CORPUSCULAR HGB 28.1 pg (27.0-31.0); MEAN CORPUSCULAR HGB CONC 30.9 g/dl (33.0-37.0); MEAN PLATELET VOLUME 10.1 fl (9.6-12.3); MONO # 0.7 10*3/uL (0.1-1.0); MONO % 9.1 % (3.0-9.0); NEUT # 4.6 10*3/uL (2.3-7.9); NEUT % 60.1 % (47.0-73.0); PLATELET COUNT AUTOMATED 332 10*3/uL (130-400); RED BLOOD COUNT 3.92 10*6/uL (4.50-5.90); RED CELL DISTRI WIDTH 17.8 % (0-14.5); WHITE BLOOD COUNT 7.6 10*3/uL (4.8-10.8)
--- NOTE | 2019-09-13 15:43 | NUR ---
PATIENT DENIES ANY WOUNDS A&OX4.
[2019-09-13 15:53] LABS: ACT PARTIAL THROMBO TIME 22.1 SECONDS (20.0-32.1); INTERNATIONAL NORM RATIO 1.2 (2.0-3.5)
[2019-09-13 15:59] LABS: CREATININE 2.38 mg/dL (0.70-1.30); TOTAL PROTEIN 6.9 gm/dL (6.4-8.2)
[2019-09-13 16:00] LABS: TROPONIN I 0.027 ng/ml (<0.045)
[2019-09-13 16:03] LABS: POTASSIUM 6.5 mmol/L (3.5-5.1)
--- NOTE | 2019-09-13 16:05 | NUR ---
CRITICAL POTASSIUM OF 6.5 CALLED AT THIS TIME. MELISSA DE ANDA NOTIFIED.
[2019-09-13 17:04] VITALS: BP 132/80
[2019-09-13 17:37] VITALS: BP 103/65
--- NOTE | 2019-09-13 18:04 | NUR ---
PLACED PATIENT ALMOST FLAT TO MOVE UP IN BED AND HE COULD NOT TOLERATE LAYING FLAT. PULSE OX AT 91%. REPOSITIONED PATIENT AND NC 3L AT THIS TIME. PULSE OX IS 100%.
[2019-09-13 18:06] VITALS: BP 114/96
--- NOTE | 2019-09-13 18:28 | NUR ---
REPORT GIVEN TO BHAVANA MATA AT THIS TIME. PATIENT TO GO TO CT SCAN THEN UPSTAIRS.
--- NOTE | 2019-09-13 18:30 | NUR ---
PATIENT TO CT SCAN AT THIS TIME.
--- NOTE | 2019-09-13 18:34 | NUR ---
PATIENT REFUSED CT SCAN. WILL TAKE PATIENT TO 4E AT THIS TIME.
--- NOTE | 2019-09-13 18:38 | NUR ---
A 73, admitted to 4E, under the services of WESLEY Ch DO with a diagnosis of ACUTE RENAL FAILURE,SHORTNESS OF BREATH AND RECTAL BLEED. Chief complaint is SHORTNESS OF BREATH. Patient arrived via stretcher from ER. Monitor applied. Initial assessment completed. Vital signs taken and recorded. WESLEY CH DO notified of admission to the unit. Orders received. See assessment for past medical history, medications and allergies. Patient and/or family oriented to unit. Clothing/patient valuable form completed. MIRYAM SANZ
--- NOTE | 2019-09-13 18:53 | NUR ---
PATIENT'S NIECE IS BRINGING IN HIS LIST OF MEDS TONIGHT, PER PATIENT.
[2019-09-13 19:00] VITALS: BP 150/132
--- NOTE | 2019-09-13 19:04 | NUR ---
DR. HART AWARE OF CONSULT. DR. VERMA ANSWERING SERVICE TOOK CONSULT INFORMATION.
--- NOTE | 2019-09-13 19:38 | NUR ---
SPOKE WITH DR VERMA REGARDING NEW CONSULT, ORDERS RECIEVED.
--- NOTE | 2019-09-13 19:43 | NUR ---
PT IS AWAKE AND SITTING UP WITH FAMILY AT BEDSIDE. PT IS VISIBLY SOB, 98% ON 3L NC. LUNGS DIMINISHED WITH EXPIRATORY WHEEZE. RED, SHINY SKIN NOTED TO BILATERAL LOWER EXTREMITIES. PT DOES C/O OF PAIN ASSOCIATED WITH BOTH, DR AWARE. BED IS LOW, CALL LIGHT WITHIN REACH. WILL CONTINUE TO MONITOR.
[2019-09-13 20:00] VITALS: BP 98/64
[2019-09-14] VITALS: BP 87/60
[2019-09-14 00:12] LABS: CREATININE 2.36 mg/dL (0.70-1.30)
[2019-09-14 00:17] LABS: POTASSIUM 6.2 mmol/L (3.5-5.1)
--- NOTE | 2019-09-14 00:21 | NUR ---
DR SEE NOTIFIED OF CRITICAL POTASSIUM.
[2019-09-14 06:42] LABS: BASO % 0.5 % (0.0-1.0); EOS # 0.1 10*3/uL (0.0-0.4); EOS % 0.9 % (1.0-4.0); HEMOGLOBIN 10.1 g/dl (14.0-18.0); LYMPH # 1.5 10*3/uL (1.3-4.4); LYMPH % 23.5 % (27.0-41.0); MEAN CELL VOLUME 90.7 fl (80.0-94.0); MEAN CORPUSCULAR HGB 27.7 pg (27.0-31.0); MEAN CORPUSCULAR HGB CONC 30.6 g/dl (33.0-37.0); MEAN PLATELET VOLUME 10.1 fl (9.6-12.3); MONO # 0.6 10*3/uL (0.1-1.0); MONO % 8.9 % (3.0-9.0); NEUT # 4.3 10*3/uL (2.3-7.9); NEUT % 65.7 % (47.0-73.0); PLATELET COUNT AUTOMATED 310 10*3/uL (130-400); RED BLOOD COUNT 3.64 10*6/uL (4.50-5.90); RED CELL DISTRI WIDTH 17.5 % (0-14.5); WHITE BLOOD COUNT 6.5 10*3/uL (4.8-10.8)
[2019-09-14 07:02] LABS: CREATININE 2.3 mg/dL (0.70-1.30); PHOSPHOROUS 3.7 mg/dL (2.5-4.9); POTASSIUM 5.7 mmol/L (3.5-5.1)
[2019-09-14 08:00] VITALS: BP 118/76
--- NOTE | 2019-09-14 08:55 | NUR ---
Patient in bed and approached for Occupational Therapy evaluation. OT explained to patient. Patient reported that he did not think he needed any therapy. OTR will recheck at a later date. Anjana Jordan Otr/Asif
--- NOTE | 2019-09-14 09:00 | NUR ---
PHYSICAL THERAPY Pt declining therpy at this time, per pt "not up to it" at this time, will follow. Ene Blackwell PT
[2019-09-14 12:00] VITALS: BP 104/69
--- NOTE | 2019-09-14 14:27 | NUR ---
Transmission Calibration Engineer in to talk to patient. Patient states lives at HOME with ALONE. There are BASEMENT steps in the home. Physician: SENA BHATIA [facility] Patient's level of ADLs: INDEPENDENT Patient has working utilities: YES DME: MOTORIZED CHAIR Follow-up physician's appointment after d/c: WILL BE MADE BY HOSPITALIST NURSE DIRECTOR ON DISCHARGE Does patient want to access PORTAL?: NO Discharge plan PT STATES HE LIVES AT HOME ALONE AND IS INDEPENDENT IN HIS CARE WITH HIS MOTORIZED CHAIR. STATES NEICE HELPS HIM WHEN NEEDED. HE ALSO HAS [facility]. STATES HE WILL RETURN HOME WITH [facility] ON DISCHARGE. DENIES HE WILL HAVE ANY OTHER NEEDS AT THIS TIME. WILL CONTINUE TO FOLLOW. STATES HE WILL HAVE A RIDE HOME.. ANDER WALTON
[2019-09-14 14:45] LABS: ALBUMIN 2.9 gm/dl (3.1-4.5); CREATININE 2.35 mg/dL (0.70-1.30)
--- NOTE | 2019-09-14 14:52 | NUR ---
PATIENT HAS NOW REFUSED CAT SCAN,NO CATHETER,AND ULTRASOUND OF LEGS. NOW PATIENT REFUSED FOR THERAPY TO HELP HIM BACK TO BED.
[2019-09-14 14:53] LABS: POTASSIUM 6.4 mmol/L (3.5-5.1)
--- NOTE | 2019-09-14 15:02 | NUR ---
DR. AQUINO AWARE PATIENT IS REFUSING ALOT OF TREATMENTS, AND POTASSIUM LEVEL. WILL NOTIFY DR. VERMA ALSO.
[2019-09-14 16:00] VITALS: BP 138/96
--- NOTE | 2019-09-14 16:22 | NUR ---
PATIENT PUT CALL LIGHT ON AND IS AGREEING TO ALLOW RN TO PLACE NO. PATIENT TOLERATED OK, URINE OUT PUT 100CC LORENA URINE IMMEDIATELY.
[2019-09-14 16:40] LABS: BILIRUBIN 1+ (NEGATIVE); BLOOD 3+ (NEGATIVE); CLARITY SL CLOUDY (CLEAR); COLOR YELLOW (YELLOW); GLUCOSE NEGATIVE (NEGATIVE); KETONE NEGATIVE (NEGATIVE); LEUKO ESTERASE NEGATIVE (NEGATIVE); NITRITE NEGATIVE (NEGATIVE); PH 5.5 (5.0-9.0); SPECIFIC GRAVITY >= 1.030 (1.005-1.030); UROBILINOGEN 0.2 E.U./dl (0.2-1.0)
[2019-09-14 16:59] LABS: RBC 21-30 rbc/hpf (0-2)
[2019-09-14 17:00] LABS: BACTERIA 1+
--- NOTE | 2019-09-14 18:57 | NUR ---
CYLOSPORINE ON HOLD BECAUSE NEPHRO TOXIC, NIECE IS BRINGING FROM HOME.
[2019-09-14 20:00] VITALS: BP 118/87
[2019-09-15] VITALS: BP 114/65
--- NOTE | 2019-09-15 00:15 | NUR ---
PATIENT COMPLAINING OF SHORTNESS OF BREATH AND REQUESTING AEROSOL TREATMENT. RESPIRATORY IN TO GIVE TREATMENT AND PATIENT BREATHING EASIER. 02 ON AT 3L N/C. HOB ELEVATED. NO CATH PATENT DRAINING YELLOW URINE. NO SIGNS OR SYMPTOMS OF DISTRESS AT THIS TIME. WILL CONTINUE TO MONITOR. CALL LIGHT IN REACH.
--- NOTE | 2019-09-15 01:31 | NUR ---
24 HR chart check completed.
[2019-09-15 08:07] LABS: BASO % 0.6 % (0.0-1.0); EOS # 0.2 10*3/uL (0.0-0.4); EOS % 3.4 % (1.0-4.0); HEMATOCRIT 30.8 % (42.0-52.0); HEMOGLOBIN 9.6 g/dl (14.0-18.0); LYMPH # 1.6 10*3/uL (1.3-4.4); LYMPH % 26.2 % (27.0-41.0); MEAN CELL VOLUME 89.3 fl (80.0-94.0); MEAN CORPUSCULAR HGB 27.8 pg (27.0-31.0); MEAN CORPUSCULAR HGB CONC 31.2 g/dl (33.0-37.0); MEAN PLATELET VOLUME 9.9 fl (9.6-12.3); MONO # 0.5 10*3/uL (0.1-1.0); MONO % 8.6 % (3.0-9.0); NEUT # 3.8 10*3/uL (2.3-7.9); NEUT % 60.9 % (47.0-73.0); PLATELET COUNT AUTOMATED 266 10*3/uL (130-400); RED BLOOD COUNT 3.45 10*6/uL (4.50-5.90); RED CELL DISTRI WIDTH 17.1 % (0-14.5); WHITE BLOOD COUNT 6.3 10*3/uL (4.8-10.8)
[2019-09-15 08:27] LABS: ALBUMIN 2.5 gm/dl (3.1-4.5); CREATININE 2.09 mg/dL (0.70-1.30); TOTAL PROTEIN 5.9 gm/dL (6.4-8.2)
[2019-09-15 08:29] LABS: POTASSIUM 4.6 mmol/L (3.5-5.1)
[2019-09-15 12:00] VITALS: BP 100/69
--- NOTE | 2019-09-15 12:45 | NUR ---
NOTIFIED LILIAM MCCLURE AT THIS TIME THAT THE PATIENT IS REFUSING THE ORDERED ABDOMINAL ULTRASOUND AT THIS TIME DUE TO NOT BEING ABLE TO LIE FLAT FOR THE REQUIRED 40 MINUTES.
--- NOTE | 2019-09-15 13:20 | NUR ---
PT CONTINUES TO DENY NEEDS WHEN DISCHARGED WHEN MEDICALLY STABLE. WILL CONTINUE TO FOLLOW.
[2019-09-15 14:08] LABS: CYCLOSPORINE, BLOOD 85 ng/mL (100-400)
--- NOTE | 2019-09-15 14:39 | NUR ---
Occupational Therapy evaluation offered, but upon entering room, patient became verbally aggressive, w/ c/o not getting any food except a popsicle and stating "I wish I never came here." Nurse informed of above. OTR will attempt at a later date. Anjana Jrodan OTR/l
--- NOTE | 2019-09-15 15:46 | NUR ---
ATTEMPTED TO TALK WITH PT ABOUT GOING TO A SKILLED FACILITY. PT IS VERY UPSET RIGHT NOW OVER BEING NPO, STATES I DO NOT WANT TO TALK TO ANYONE RIGHT NOW. I WISH I HAD NEVER COME TO THIS HOSPITAL. I SHOULD OF GONE TO [facility] OR [facility]. ASK HIM WHAT WAS GOING ON THAT HE WAS SO UPSET, STATES THEY WON'T LET ME EAT. I ASK HIM IF HE WAS GOING FOR TESTING AND IF IS WHY HE COULD NOT EAT, HE STATES THE DOCTOR IS HELD UP IN SURGERY OR SOMETHING, ASK HIM ABOUT DISCHARGE PLANS AND IF HE WOULD BE AGREEABLE TO GO TO A SNF FOR REHAB. STATES NO I AM GOING HOME AND I DON'T WANT TO TALK TO YOU OR ANYONE ELSE RIGHT NOW. WILL ATTEMPT TO TALK TO PT LATER.
[2019-09-15 16:00] VITALS: BP 114/96
--- NOTE | 2019-09-15 18:12 | NUR ---
DR. HART IN TO SEE PATIENT. RECTAL EXAM COMPLETED AT BEDSIDE. PATIENT REFUSED ANY OTHER INTERVENTIONS. DIET CHANGED TO REGULAR RENAL DIET AT THIS TIME.
[2019-09-15 20:00] VITALS: BP 118/91
--- NOTE | 2019-09-15 20:09 | NUR ---
24 HR CHART CHECK COMPLETE.
[2019-09-16] VITALS: BP 116/88
--- NOTE | 2019-09-16 01:00 | NUR ---
PT. ASKING FOR SOMETHING FOR HEARTBURN & SOMETHING FOR ALLERGIES. INFORMED PATIENT THAT I WOULD ASK THE DOCTOR. PT. VERBALIZED UNDERSTANDING.
--- NOTE | 2019-09-16 01:45 | NUR ---
MEDICATED WITH PRILOSEC & BENADRYL PER PT'S REQUEST.
--- NOTE | 2019-09-16 04:00 | NUR ---
POWDER WORKER TNT LIGHT CONTINUOUSLY PERTAINING TO HAVING STAFF PUT THE HEAD OF HIS BED UP, THEN DOWN AND TURN THE CHANNEL ON THE T.V. NEEDS MET; NO DISTRESS NOTED. CALL LIGHT WITHIN REACH.
--- NOTE | 2019-09-16 06:00 | NUR ---
BLOOD SUGAR 58.
--- NOTE | 2019-09-16 06:30 | NUR ---
BLOOD SUGAR 165.
[2019-09-16 07:32] LABS: BASO % 0.5 % (0.0-1.0); EOS # 0.2 10*3/uL (0.0-0.4); EOS % 2.1 % (1.0-4.0); HEMATOCRIT 34.7 % (42.0-52.0); HEMOGLOBIN 10.5 g/dl (14.0-18.0); LYMPH # 1.3 10*3/uL (1.3-4.4); LYMPH % 15.8 % (27.0-41.0); MEAN CELL VOLUME 91.1 fl (80.0-94.0); MEAN CORPUSCULAR HGB 27.6 pg (27.0-31.0); MEAN CORPUSCULAR HGB CONC 30.3 g/dl (33.0-37.0); MONO # 0.6 10*3/uL (0.1-1.0); NEUT # 6.1 10*3/uL (2.3-7.9); NEUT % 74.2 % (47.0-73.0); PLATELET COUNT AUTOMATED 316 10*3/uL (130-400); RED BLOOD COUNT 3.81 10*6/uL (4.50-5.90); RED CELL DISTRI WIDTH 17.3 % (0-14.5); WHITE BLOOD COUNT 8.2 10*3/uL (4.8-10.8)
[2019-09-16 07:58] LABS: ALBUMIN 2.9 gm/dl (3.1-4.5); CREATININE 2.02 mg/dL (0.70-1.30); POTASSIUM 4.4 mmol/L (3.5-5.1); TOTAL PROTEIN 6.7 gm/dL (6.4-8.2)
[2019-09-16 08:00] VITALS: BP 104/60
--- NOTE | 2019-09-16 08:54 | NUR ---
MORPHINE 2 MG GIVEN FOR C/O PAIN TO PENIS D/T NO CATHETER,05/13. UPON ASSESSMENT PT HAD TUGGED CATHETER WHILE ROLLING AROUND IN BED. NO HEMATURIA NOTED. NO PATENT AND DRAINING YELLOW URINE.
[2019-09-16 12:00] VITALS: BP 122/67
--- NOTE | 2019-09-16 13:35 | NUR ---
D/C NO PER PHYSICIAN ORDER. NOTIFIED PT THAT HE HAD BEEN D/C. NOTIFIED POA OF D/C. NOTIFIED DR BURKETT OF POA'S DISATISFACTION OF D/C DECISION. I EXPLAINED TO POA THAT THIS IS PT BASELINE. PT REFUSED SNF.PT IS ALERT AND ORIENTED X3.
--- NOTE | 2019-09-16 15:21 | NUR ---
COMPLETE CHANGE PROVIDED FOR INCONTINENT OF URINE, BRIEF IN PLACE. WILL NOTIFY POA TO STUNT PERSON PT PER HER REQUEST.
--- NOTE | 2019-09-16 16:04 | NUR ---
Discharge instructions reviewed with patient/family. Patient receptive and verbalizes understanding. Follow-up care arranged. Written instructions given to patient/family.HEPLOCK D/C'D AND TELEMETRY ACCOUNTED FOR. DANIELA MENA
[2019-09-17 11:08] LABS: HEPATITIS B SURFACE AG Negative (Negative); HEPATITIS C VIRUS ANTIBODY <0.1 s/co (0.0-0.9)
== END 2019-09-16 16:04 | disposition home or self-care (01) | DRG 377 ==
LOC: ED 15:22 → EDHOLD 17:51 → 4E 17:51
PROVIDERS: Family Medicine; Internal Medicine; Internal Medicine Nephrology; Physician Assistant; Registered Nurse; Student in an Organized Health Care Education/Training Program; ADMIT Emergency Medicine
DX: K62.5 Hemorrhage of anus and rectum (principal); J96.00 Acute respiratory failure, unspecified whether with hypoxia or hypercapnia; N17.0 Acute kidney failure with tubular necrosis; E44.0 Moderate protein-calorie malnutrition; I50.32 Chronic diastolic (congestive) heart failure; Z68.42 Body mass index [BMI] 45.0-49.9, adult; I13.0 Hypertensive heart and chronic kidney disease with heart failure and stage 1 through stage 4 chronic kidney disease, or unspecified chronic kidney disease; K57.31 Diverticulosis of large intestine without perforation or abscess with bleeding; E11.65 Type 2 diabetes mellitus with hyperglycemia; E87.5 Hyperkalemia; D64.9 Anemia, unspecified; G70.00 Myasthenia gravis without (acute) exacerbation; G47.33 Obstructive sleep apnea (adult) (pediatric); N40.0 Benign prostatic hyperplasia without lower urinary tract symptoms; M50.30 Other cervical disc degeneration, unspecified cervical region; E66.01 Morbid (severe) obesity due to excess calories; N18.9 Chronic kidney disease, unspecified; I25.10 Atherosclerotic heart disease of native coronary artery without angina pectoris; E11.22 Type 2 diabetes mellitus with diabetic chronic kidney disease; Z79.4 Long term (current) use of insulin; Z79.82 Long term (current) use of aspirin; Z79.899 Other long term (current) drug therapy; Z82.49 Family history of ischemic heart disease and other diseases of the circulatory system; K64.9 Unspecified hemorrhoids; E55.9 Vitamin D deficiency, unspecified; K44.9 Diaphragmatic hernia without obstruction or gangrene; Z86.73 Personal history of transient ischemic attack (TIA), and cerebral infarction without residual deficits; Z86.718 Personal history of other venous thrombosis and embolism; Z96.89 Presence of other specified functional implants

== ENCOUNTER 2019-09-25 21:32 | Inpatient (IN) | payer MEDICARE ==
[~2019-09-25] VITALS: Ht 167.6 cm; Wt 119.5 kg
[2019-09-25 21:39] VITALS: BP 138/106
[2019-09-25 21:55] LABS: BASO % 0.7 % (0.0-1.0); EOS # 0.1 10*3/uL (0.0-0.4); EOS % 2.3 % (1.0-4.0); HEMOGLOBIN 10.5 g/dl (14.0-18.0); LYMPH # 1.7 10*3/uL (1.3-4.4); LYMPH % 27.3 % (27.0-41.0); MEAN CELL VOLUME 90.4 fl (80.0-94.0); MEAN CORPUSCULAR HGB 27.1 pg (27.0-31.0); MEAN PLATELET VOLUME 10.2 fl (9.6-12.3); MONO # 0.6 10*3/uL (0.1-1.0); MONO % 9.4 % (3.0-9.0); NEUT # 3.7 10*3/uL (2.3-7.9); PLATELET COUNT AUTOMATED 314 10*3/uL (130-400); RED BLOOD COUNT 3.87 10*6/uL (4.50-5.90); RED CELL DISTRI WIDTH 17.6 % (0-14.5); WHITE BLOOD COUNT 6.1 10*3/uL (4.8-10.8)
[2019-09-25 22:06] LABS: ACT PARTIAL THROMBO TIME 27.7 SECONDS (20.0-32.1); INTERNATIONAL NORM RATIO 1.2 (2.0-3.5)
[2019-09-25 22:13] LABS: CREATININE 1.84 mg/dL (0.70-1.30); POTASSIUM 5.3 mmol/L (3.5-5.1); TOTAL PROTEIN 6.5 gm/dL (6.4-8.2); TROPONIN I 0.039 ng/ml (<0.045)
[2019-09-25 22:52] VITALS: BP 156/131
[2019-09-25 23:52] VITALS: BP 98/68
[2019-09-26] VITALS (9 sets, daily range): BP systolic 90–116; BP diastolic 44–82
--- NOTE | 2019-09-26 | NUR ---
A 73, admitted to [facility], under the services of ANGELA Espinosa DO with a diagnosis of CHF, RENAL INSUFFICIENCY. Chief complaint is SOB. Patient arrived via bed from ER. Monitor applied. Initial assessment completed. Vital signs taken and recorded. ANGELA ESPINOSA DO notified of admission to the unit. Orders received. See assessment for past medical history, medications and allergies. Patient and/or family oriented to unit. [facility] visitation policy reviewed. Clothing/patient valuable form completed. CAMPBELL EASTMAN
--- NOTE | 2019-09-26 01:00 | NUR ---
DR WELCH NOTIFIED OF BP. NO NEW ORDERS. AWAITING CALL BACK FROM DR VELAZCO.
--- NOTE | 2019-09-26 01:00 | NUR ---
ANSWERING SERVICE WAS NOTIFIED OF DR. VELAZCO CONSULT. RESPONSE OF NOTIFICATION WAS OK I WILL GET THIS TO HIM. CAMPBELL EASTMAN
--- NOTE | 2019-09-26 02:07 | NUR ---
PATIENT MED REC UPDATED BASED ON LAST ADMISSION DISCHARGE MEDS. PT STATED HIS MEDS HAVE NOT CHANGED SINCE HE WAS LAST DISCHARGED. PATIENT DOES NOT KNOW WHAT HE TAKES AT HOME.
--- NOTE | 2019-09-26 02:18 | NUR ---
SPOKE TO DR VELAZCO, NEW ORDER RECEIVED FOR LASIX 40MG IV NOW THEN THEY WILL SEE IN THE MORNING.
[2019-09-26 03:29] LABS: BASO # 0.1 10*3/uL (0.0-0.1); BASO % 0.8 % (0.0-1.0); EOS # 0.2 10*3/uL (0.0-0.4); EOS % 2.7 % (1.0-4.0); HEMATOCRIT 32.7 % (42.0-52.0); HEMOGLOBIN 9.8 g/dl (14.0-18.0); LYMPH % 32.3 % (27.0-41.0); MEAN CELL VOLUME 90.8 fl (80.0-94.0); MEAN CORPUSCULAR HGB 27.2 pg (27.0-31.0); MEAN PLATELET VOLUME 9.9 fl (9.6-12.3); MONO # 0.6 10*3/uL (0.1-1.0); MONO % 9.2 % (3.0-9.0); NEUT # 3.4 10*3/uL (2.3-7.9); NEUT % 54.8 % (47.0-73.0); PLATELET COUNT AUTOMATED 278 10*3/uL (130-400); RED CELL DISTRI WIDTH 17.6 % (0-14.5); WHITE BLOOD COUNT 6.2 10*3/uL (4.8-10.8)
--- NOTE | 2019-09-26 03:30 | NUR ---
ICE PACK PLACED TO SCROTUM FOR COMFORT.
[2019-09-26 03:44] LABS: ALBUMIN 2.9 gm/dl (3.1-4.5); CREATININE 1.85 mg/dL (0.70-1.30); PHOSPHOROUS 3.2 mg/dL (2.5-4.9); POTASSIUM 4.9 mmol/L (3.5-5.1); TOTAL PROTEIN 6.1 gm/dL (6.4-8.2)
--- NOTE | 2019-09-26 05:04 | NUR ---
PAM,OMAIRA Kapoor [id number] Please refer to the physician's history and physical for past medical history, comorbid conditions, and allergies. Diagnosis: CHF RENAL INSUFFICIENCY Ken Score: 16,AT RISK WOUND DESCRIPTIONS: Wound Number: 1 Location of the wound: right breast Type of wound: fungal Thickness: Partial Size: 5.0cm x 22.0cm x <0.1cm Tunneling: none Undermining: none Sinus Tract: none Presence of Exudate: none Amount: None Color: Red Odor: Musty Periwound Skin Appearance: Normal Wound edges: approximated Pain (associated with wound): none at time of assessment How does patient state this happened? pt states he has this all the time Wound Number: 2 Location of the wound: left breast Type of wound: fungal Thickness: Partial Size: 5.0cm x 25.5cm x <0.1cm Tunneling: none Undermining: none Sinus Tract: none Presence of Exudate: none Amount: None Color: Red Odor: Musty Periwound Skin Appearance: Normal Wound edges: approximated Pain (associated with wound): none at time of assessment How does patient state this happened? pt states he has this all the time Wound Number: 3 Location of the wound: periarea and lower abdominal fold Type of wound: fungal Thickness: Partial Size: 13.0cm x 41.0cm x <0.1cm Tunneling: none Undermining: none Sinus Tract: none Presence of Exudate: Amount: None Color: Red Odor: Musty Periwound Skin Appearance: Normal Wound edges: approximated Pain (associated with wound): none at time of assessment How does patient state this happened? pt states he has this all the time Patient's buttocks is red and blanchable at time of assessment. Patient incontinent of stool per nurse caring for patient. Patient's bilateral lower extremities red, dry and flaky at time of assessment. No open areas noted at time of assessment multiple intact scabbed areas to bilateral lower extremities. Surface the patient is resting on: ER Stretcher SKIN PREVENTION RECOMMENDATION: 1. Pressure redistribution support surface as appropriate 2. Elevate heels 3. Remove boots/TEDS every shift and reapply 4. Head of bed 30 degrees as tolerated 5. Assess nutrition and hydration 6. Manage moisture 7. Avoid the use of containment devices while in bed 8. Use absorptive products on surfaces limit layers of linens on bed 9. Turn and reposition every 1-2 hours in bed and every 1 hour in chair as tolerated 10. Weight shifts every 15 minutes while up in chair 11. Offloading with pillows or device to keep heels elevated off bed 12. Monitor skin at least every shift 13. Inspect under medical devices twice a day WOUND TREATMENT RECOMMENDATIONS: Cleanse entire buttocks with soap and water and apply hydraguard every shift and prn for soiling. Cleanse left breast, right breast and periarea and lower abdominal fold with soap and water pat areas dry then apply nystatin powder every 8 hours Wheelchair cushion when oob. Heel raiser pro boots to bilateral feet while in bed. Cleanse bilateral lower extremities with soap and water and apply aquaphor ointment daily
--- NOTE | 2019-09-26 05:40 | NUR ---
DR MARCUM NOTIFIED OF WOUND CARE RECOMMENDATIONS.
[2019-09-26 05:54] LABS: BILIRUBIN NEGATIVE (NEGATIVE); BLOOD 1+ (NEGATIVE); CLARITY SL CLOUDY (CLEAR); COLOR YELLOW (YELLOW); GLUCOSE NEGATIVE (NEGATIVE); KETONE NEGATIVE (NEGATIVE); LEUKO ESTERASE TRACE (NEGATIVE); NITRITE NEGATIVE (NEGATIVE); PH 5.5 (5.0-9.0); UROBILINOGEN 0.2 E.U./dl (0.2-1.0)
[2019-09-26 06:01] LABS: HYALINE CAST 45-50
--- NOTE | 2019-09-26 07:59 | NUR ---
24HR CHART CHECK COMPLETE.
--- NOTE | 2019-09-26 09:24 | NUR ---
I spoke with the pt's niece about med rec. She states that the only thing that has changed since the pt was last here is that he was supposed to stop take Gengraf. She states that [facility] however, [facility] not [facility] the [facility] to stop this medication because of his myasthina gravis. She reports that the pt is noncompliant with his medications in general. She states that since the pt was recently discharged he has only taken his medication once that she is aware of and she is who fills his weekly pill container.
--- NOTE | 2019-09-26 22:00 | NUR ---
CALLED PHARMACY TO GET MISSING DOSE OF LOVENOX, NO ANSWER.
[2019-09-27] VITALS (8 sets, daily range): BP systolic 82–142; BP diastolic 42–112
--- NOTE | 2019-09-27 02:59 | NUR ---
24 HOUR CHART CHECK COMPLETE.
[2019-09-27 06:19] LABS: ALBUMIN 2.8 gm/dl (3.1-4.5); CREATININE 1.89 mg/dL (0.70-1.30); POTASSIUM 4.3 mmol/L (3.5-5.1); TOTAL PROTEIN 6.1 gm/dL (6.4-8.2)
[2019-09-27 06:29] LABS: BASO % 0.5 % (0.0-1.0); EOS # 0.2 10*3/uL (0.0-0.4); EOS % 2.6 % (1.0-4.0); HEMATOCRIT 33.5 % (42.0-52.0); LYMPH # 1.8 10*3/uL (1.3-4.4); LYMPH % 24.3 % (27.0-41.0); MEAN CELL VOLUME 90.1 fl (80.0-94.0); MEAN CORPUSCULAR HGB 26.9 pg (27.0-31.0); MEAN CORPUSCULAR HGB CONC 29.9 g/dl (33.0-37.0); MEAN PLATELET VOLUME 10.1 fl (9.6-12.3); MONO # 0.7 10*3/uL (0.1-1.0); MONO % 8.9 % (3.0-9.0); NEUT # 4.6 10*3/uL (2.3-7.9); NEUT % 63.4 % (47.0-73.0); PLATELET COUNT AUTOMATED 265 10*3/uL (130-400); RED BLOOD COUNT 3.72 10*6/uL (4.50-5.90); RED CELL DISTRI WIDTH 17.6 % (0-14.5); WHITE BLOOD COUNT 7.3 10*3/uL (4.8-10.8)
--- NOTE | 2019-09-27 17:30 | NUR ---
DR BURKETT CALLED RE: BP 104/76 HR 82. LASIX 80MG DUE... HE STATES TO CALL DR JARAMILLO AND RUN IT BY HIM. DR JARAMILLO CALLED, MESSAGE LEFT ON SERVICE FOR A RETURN CALL
--- NOTE | 2019-09-27 17:33 | NUR ---
DR JAARMILLO CALLED AND ORDERS RECEIVED TO SPLIT DOSE 40 NOW, AND IN ONE HOUR IF PRESSURE REMAINS AROUND THE SAME TO GIVE THE OTHER 40MG.
[2019-09-28] VITALS: BP 108/60
--- NOTE | 2019-09-28 03:53 | NUR ---
Recommend follow up for wound care in outpatient setting patient refused at this time.
[2019-09-28 06:00] VITALS: BP 114/94
[2019-09-28 07:05] LABS: BASO % 0.4 % (0.0-1.0); EOS # 0.1 10*3/uL (0.0-0.4); EOS % 1.8 % (1.0-4.0); HEMATOCRIT 33.4 % (42.0-52.0); HEMOGLOBIN 9.9 g/dl (14.0-18.0); LYMPH # 1.5 10*3/uL (1.3-4.4); LYMPH % 20.8 % (27.0-41.0); MEAN CELL VOLUME 89.3 fl (80.0-94.0); MEAN CORPUSCULAR HGB 26.5 pg (27.0-31.0); MEAN CORPUSCULAR HGB CONC 29.6 g/dl (33.0-37.0); MONO # 0.6 10*3/uL (0.1-1.0); MONO % 8.1 % (3.0-9.0); NEUT # 4.9 10*3/uL (2.3-7.9); NEUT % 68.6 % (47.0-73.0); PLATELET COUNT AUTOMATED 273 10*3/uL (130-400); RED BLOOD COUNT 3.74 10*6/uL (4.50-5.90); RED CELL DISTRI WIDTH 17.5 % (0-14.5); WHITE BLOOD COUNT 7.1 10*3/uL (4.8-10.8)
[2019-09-28 07:30] LABS: ALBUMIN 2.8 gm/dl (3.1-4.5); CREATININE 1.99 mg/dL (0.70-1.30); POTASSIUM 4.1 mmol/L (3.5-5.1); TOTAL PROTEIN 6.3 gm/dL (6.4-8.2)
[2019-09-28 08:00] VITALS: BP 116/63
--- NOTE | 2019-09-28 09:00 | NUR ---
Computer Sciences Professor in to talk to patient. Patient states lives at home with alone. There are no steps in the home. Physician: trevor rodrigues [facility] [place] [facility] Patient's level of ADLs: MINIMAL ASSIST Patient has working utilities: all working DME: motorized wheelchair Follow-up physician's appointment after d/c: will be made by hospitalist nurse director upon discharge Does patient want to access PORTAL?: no Discharge plan discussed with patient, he states he lives at home alone, uses a motorized wheelchair for ambulation, has [facility] that sees him several times a week case management discussed with patient being back in the hospital within 30 days of discharge and stating he was unable to ambulate, discussed a short term detention prior to returning home, educated him that he would receive 5 days of physical therapy in the SNF and also 24 hour care until he was strong enough to return home, also discussed with him working with physical therapy and occupation while he is a patient in the hospital, patient stated he understood all of this and would work with therapy tomorrow and would also think about a short term detention. KARUNA BARNES
--- NOTE | 2019-09-28 09:10 | NUR ---
After thorough interview, patient declined any out of bed movement, any UE/LE ROM, stating "I'm too restricted". Patient did not want OT to return today. OTR will attempt at a later date. Anjana Jordan OTr/rocael
--- NOTE | 2019-09-28 09:54 | NUR ---
DR CHEEK CALLED AND NOTIFIED THAT IS REFUSING VQ SCAN. HE STATES HE WILL NOTIFY DR KEY.
--- NOTE | 2019-09-28 11:40 | NUR ---
PHYSICAL THERAPY Chart reviewed and subjective information obtained from pt however then pt stating he did not want to do anything at this time. Attempted to have pt sit at edge of bed only, but continued to decline therapy. Will follow Ene Blackwell PT
[2019-09-28 12:00] VITALS: BP 121/64
--- NOTE | 2019-09-28 13:53 | NUR ---
MAJOR ACCOUNT REPRESENTATIVE attempted to speak with the patient. Patient would not keep eyes open. Patient stated "I'm sick". MAJOR ACCOUNT REPRESENTATIVE will speak with the patient at a later time about SNF. -SHAUN Mazariegos
[2019-09-28 16:00] VITALS: BP 104/63
[2019-09-28 20:00] VITALS: BP 110/88
[2019-09-29] VITALS: BP 121/76
--- NOTE | 2019-09-29 03:44 | NUR ---
24 HR chart check completed.
--- NOTE | 2019-09-29 04:01 | NUR ---
MEDICATED WITH PRN ZOFRAN FOR C/O NAUSEA. WILL MONITOR
--- NOTE | 2019-09-29 04:17 | NUR ---
PATIENT RESTING IN BED WITH NO S/S OF DISTRESS. BED IN LOWEST POSITION, CALL LIGHT IN REACH
[2019-09-29 07:43] LABS: BASO % 0.3 % (0.0-1.0); EOS % 0.3 % (1.0-4.0); HEMATOCRIT 34.3 % (42.0-52.0); HEMOGLOBIN 10.4 g/dl (14.0-18.0); LYMPH # 1.2 10*3/uL (1.3-4.4); MEAN CELL VOLUME 87.9 fl (80.0-94.0); MEAN CORPUSCULAR HGB 26.7 pg (27.0-31.0); MEAN CORPUSCULAR HGB CONC 30.3 g/dl (33.0-37.0); MONO # 0.4 10*3/uL (0.1-1.0); MONO % 6.3 % (3.0-9.0); NEUT # 5.1 10*3/uL (2.3-7.9); NEUT % 74.8 % (47.0-73.0); PLATELET COUNT AUTOMATED 264 10*3/uL (130-400); RED CELL DISTRI WIDTH 17.4 % (0-14.5); WHITE BLOOD COUNT 6.8 10*3/uL (4.8-10.8)
[2019-09-29 07:50] LABS: CREATININE 2.46 mg/dL (0.70-1.30)
[2019-09-29 08:00] VITALS: BP 118/72
--- NOTE | 2019-09-29 08:20 | NUR ---
ADVERTISING SOLICITOR attempted to speak with the patient. Patient is puking at the moment. Will attempt to speak with him at a later time. [employer] Lisa is aware. -SHAUN Mazariegos
--- NOTE | 2019-09-29 09:00 | NUR ---
RESP EASY AND NONLABORED ON O2. PT C/O NAUSEA AND ABDOMINAL PAIN. PT STATES HE'S "SO SICK." DR KEY'S TEAM TO BE NOTIFIED. CALL LIGHT IN REACH. WILL MONITOR
--- NOTE | 2019-09-29 09:10 | NUR ---
Occupational Therapy offered to patient this am. Patient again declined stating that he was "sick" with emesis [place] nearby. Anjana Jordan OTR/Asif
--- NOTE | 2019-09-29 09:30 | NUR ---
case management visits with patient, discussed with him a discharge plan and he stated he would be returning home and denies any home needs, he has home health and wants it resumed when he is discharged, case management will follow
--- NOTE | 2019-09-29 09:48 | NUR ---
PHYSICAL THERAPY Attempted to see pt at the for evaluation. Continues to refuse, now stating he is too sick and has been having nausea and vomitting. Pt states he is not up to doing anything at this time. Will follow Ene Blackwell PT
--- NOTE | 2019-09-29 10:00 | NUR ---
pt refused am meds d/t "being too sick"
[2019-09-29 12:00] VITALS: BP 117/61
--- NOTE | 2019-09-29 13:16 | NUR ---
ATIVAN GIVEN PER ORDERS X1 PRIOR TO CT SCAN
[2019-09-29 16:00] VITALS: BP 121/79
[2019-09-29 20:00] VITALS: BP 124/67
--- NOTE | 2019-09-29 22:33 | NUR ---
PO MEDICATIONS NOT GIVEN PATIENT REFUSED. PT. NAUSEATED AND VOMITED SMALL AMOUNT OF WHITE PHLEMB. ZOFRAN GIVEN PER ORDER FOR NAUSEA. BLOOD SUGAR 109 NO INSULIN GIVEN PT. REFUSED. ICE CHIPS GIVEN PER PT. REQUEST
--- NOTE | 2019-09-29 23:47 | NUR ---
24 HR chart check completed.
[2019-09-30] VITALS: BP 117/78
[2019-09-30 06:35] LABS: BASO % 0.5 % (0.0-1.0); EOS # 0.1 10*3/uL (0.0-0.4); EOS % 0.8 % (1.0-4.0); HEMATOCRIT 35.6 % (42.0-52.0); HEMOGLOBIN 10.8 g/dl (14.0-18.0); LYMPH # 1.6 10*3/uL (1.3-4.4); LYMPH % 21.6 % (27.0-41.0); MEAN CELL VOLUME 88.8 fl (80.0-94.0); MEAN CORPUSCULAR HGB 26.9 pg (27.0-31.0); MEAN CORPUSCULAR HGB CONC 30.3 g/dl (33.0-37.0); MEAN PLATELET VOLUME 10.1 fl (9.6-12.3); MONO # 0.6 10*3/uL (0.1-1.0); MONO % 8.5 % (3.0-9.0); NEUT # 5.1 10*3/uL (2.3-7.9); NEUT % 68.2 % (47.0-73.0); NUCLEATED RED BLOOD CELL 0.3 % (0.0-0.0); PLATELET COUNT AUTOMATED 252 10*3/uL (130-400); RED BLOOD COUNT 4.01 10*6/uL (4.50-5.90); RED CELL DISTRI WIDTH 17.3 % (0-14.5); WHITE BLOOD COUNT 7.5 10*3/uL (4.8-10.8)
[2019-09-30 06:49] LABS: CREATININE 2.39 mg/dL (0.70-1.30); POTASSIUM 4.3 mmol/L (3.5-5.1)
[2019-09-30 08:00] VITALS: BP 122/68
--- NOTE | 2019-09-30 09:00 | NUR ---
PHYSICAL THERAPY ATTTEMPTED EVAL AT BEDSIDE HOWEVER PATIENT REFUSED. WILL ATTEMPT AGAIN TOMORROW. THANK YOU FOR REFERRAL AN AGUILA PT
[2019-09-30 12:00] VITALS: BP 128/70
--- NOTE | 2019-09-30 15:07 | NUR ---
Phillips catheter removed per orders. pt tolerated well.
--- NOTE | 2019-09-30 15:07 | NUR ---
ZOFRAN IV GIVEN PER ORDERS FOR C/O NAUSEA. CALL LIGHT IN REACH. WILL MONITOR
[2019-09-30 16:00] VITALS: BP 113/57
--- NOTE | 2019-09-30 16:21 | NUR ---
O2 REMOVED PULSE OX DIPPED INTO MID 80'S ON RA. 2L O2 REAPPLIED AND STATS [place] INTO MID-HIGH 90'S. PT IS NOW AGREEABLE TO GO TO [facility]. HE WOULD LIKE TO GO TO [place]. DR DENTON NOTIFIED.
--- NOTE | 2019-09-30 16:26 | NUR ---
ARIAS (JOZEF) CALLED AND UPDATED ON PLAN OF CARE
[2019-09-30 20:00] VITALS: BP 96/50
--- NOTE | 2019-09-30 20:08 | NUR ---
PATIENT RESTING IN BED WITH NO NEEDS MADE. BED IN LOWEST POSITION, CALL LIGHT IN REACH
[2019-10-01] VITALS: BP 126/57
--- NOTE | 2019-10-01 01:14 | NUR ---
DR BURKETT NOTIFIED OF PATIENT REQUESTING SLEEPING PILL. ORDER TAKEN
--- NOTE | 2019-10-01 01:29 | NUR ---
MEDICATED WITH ONE TIME RESTORIL FOR C/O SLEEPLESSNESS.
--- NOTE | 2019-10-01 04:12 | NUR ---
PATIENT RESTING IN BED WITH EYES CLOSED. RESPS EASY AND REGULAR WITH NASAL CANNULA INTACT. PREVIOUS MEDICATION SEEMS EFFECTIVE
--- NOTE | 2019-10-01 04:51 | NUR ---
24 HR chart check completed.
--- NOTE | 2019-10-01 06:11 | NUR ---
PATIENT TRANSFERED FROM , NURSE TO NURSE OBTAINED FROM CRISTINO MATA. PATIENT C/O HEADACHE. PRN TYLENOL PROVIDED AND PATIENT TOLERATED WELL, BED IS LOW, LOCKED, ALARMED, AND CALL LIGHT IS WITHIN REACH.
--- NOTE | 2019-10-01 07:30 | NUR ---
PT RESTING COMFORTABLY IN BED WITH EYES CLOSED. VOICES NO CONCERNS AT THIS TIME. OXYGEN 2L VIA NASAL CANNULA INTACT. PT REFUSING TO GET OUT OF BED AT THIS TIME. RESPS EASY AND NO LABORED. NO S/S OF DISTRESS NOTED. WHITE BOARD UPDATED.
[2019-10-01 08:00] VITALS: BP 98/75
--- NOTE | 2019-10-01 09:55 | NUR ---
10AM MEDICATIONS WERE GIVEN. NO WORKING COMPUTERS ON THE FLOOR AND UNABLE TO SCAN PATIENT. STARTED TO SCAN IN MEDS AND COMPUTER WENT DOWN. UNABLE TO DEYA GIVEN IN COMPUTER.
--- NOTE | 2019-10-01 10:42 | NUR ---
Shift chart check completed.
--- NOTE | 2019-10-01 10:53 | NUR ---
BLOOD SUGAR 127. NO COVERAGE REQUIRED.
[2019-10-01 12:00] VITALS: BP 114/57
--- NOTE | 2019-10-01 12:56 | NUR ---
PT SITTING UP IN BED EATING LUNCH.VOICES NO CONCERNS AT THIS TIME. RESPS EASY AND NON LABORED. CALL LIGHT WITHIN REACH.
--- NOTE | 2019-10-01 13:00 | NUR ---
PHYSICAL THERAPY ATTEMPTED PT EVAL HOWEVER PATIENT AGAIN REFUSED TODAY STATING HE DOES NOT FEEL WELL ENOUGH. THANK YOU FOR REFERRAL AN AGUILA PT
[2019-10-01 16:00] VITALS: BP 105/78
--- NOTE | 2019-10-01 16:06 | NUR ---
PT COMPLAINS OF NAUSEA AND A 5/10 HEADACHE. MEDICATED PER ORDER. WILL MONITOR FOR RELIEF. VOICES NO OTHER CONCERNS AT THIS TIME. RESTING IN BED. CALL LIGHT WITHIN REACH.
--- NOTE | 2019-10-01 16:30 | NUR ---
BLOOD SUGAR 212. INSULIN GIVEN PER SLIDING SCALE
--- NOTE | 2019-10-01 17:25 | NUR ---
TYLENOL EFFECTIVE PER PT
[2019-10-01 20:00] VITALS: BP 114/59
--- NOTE | 2019-10-01 20:00 | NUR ---
PATIENT RESTING IN BED WITH EASY AND REGULAR RESPERS ON 2L O2 VIA NC. ASSESSMENT IS COMPLETE WITH NO C/O OR S/S OF DISTRESS NOTED AT THIS TIME. BED IS LOW, LOCKED, ALARMED, AND CALL LIGHT IS WITHIN REACH. WILL CONTINUE TO MONITOR, SEE SHIFT ASSESSMENT.
--- NOTE | 2019-10-01 22:15 | NUR ---
Patient c/o HEADACHE. Rated as 5 on a scale of 1-10. PRN TYLENOL PROVIDED. CALL LIGHT IS WITHIN REACH, WILL MONITOR EFFECT. NIKKY BURGER A
--- NOTE | 2019-10-01 23:00 | NUR ---
PRN TYLENOL EFFECTIVE PER PATIENT. CALL LIGHT IS WITHIN REACH.
[2019-10-02] VITALS: BP 111/54
--- NOTE | 2019-10-02 06:03 | NUR ---
PATIENT ARISES EASILY FOR ADMINISTRATION OF 0600 MEDICATIONS. PATIENT TOLERATED WELL, BLOOD GLUCOSE 140. CALL LIGHT IS WITHIN REACH.
--- NOTE | 2019-10-02 06:30 | NUR ---
PATIENTS OUT OF BED IN RECLING CHAIR, AT THIS TIME. CALL LIGHT, BEDSIDE TABLE, TELEPHONE IN REACH.
--- NOTE | 2019-10-02 06:48 | NUR ---
CHART CHECK COMPLETE.
--- NOTE | 2019-10-02 07:30 | NUR ---
PT UP RESTING IN CHAIR. VOICES NO CONCERNS AT THIS TIME. PHONE AND CALL LIGHT WITHIN REACH. RESPS EASY AND NON LABORED. NO S/S OF DISTRESS NOTED. WHITE BOARD UPDATED.
[2019-10-02 08:00] VITALS: BP 102/51
--- NOTE | 2019-10-02 08:41 | NUR ---
Shift chart check completed.
--- NOTE | 2019-10-02 09:00 | NUR ---
case management visits with patient, he will return home when medically stable and resume [facility], no other needs at this time
[2019-10-02] MEDS ORDERED: METOPROLOL SUCC25 M2 PO (10:31)
--- NOTE | 2019-10-02 10:56 | NUR ---
Patient assessed for home O2. at rest on 2 l/m SpO2 97%, hr 47 BP 102/51. Patient placed on room air, desaturated to 85% within 3 minutes. Patient is unable to ambulate, placed back on 2 l/m nasal cannula.
--- NOTE | 2019-10-02 10:58 | NUR ---
BLOOD SUGAR 157. MEDICATED PER ORDER.
--- NOTE | 2019-10-02 11:10 | NUR ---
Occupational therapy orders received and chart reviewed. Patient was seated in the recliner upon OT/PT arrival. Patient refusing an evaluation at this time. Per patient, he is non-ambulatory but transfers at home from his recliner to his scooter. Patient educated on benefits of occupational therapy and refused an evaluation. Will follow up with patient. Thank you. Venita Thompson, OTR/L
--- NOTE | 2019-10-02 11:12 | NUR ---
PHYSICAL THERAPY Attempted to see pt in room for evalation, pt OOB in recliner chair. Spoke at length with pt regarding therapy and assessment to see how he is transfering. Patient continues to refuse stating he doesn't amb. Discussed with pt we understand this however he still tranfers from his recliner chair to his scooter. He also take steps to tranfer to his commode and now he is using oxygen and will be at home. Pt continues to refuse. Ene Blackwell PT
--- NOTE | 2019-10-02 11:14 | NUR ---
UPDATED PATIENT AND FAMILY PER PT REQUEST ON PLAN OF CARE AND DISCHARGE INSTRUCTIONS. QUESTIONS ANSWERED
--- NOTE | 2019-10-02 11:29 | NUR ---
SPLITTING MACHINE OPERATOR faxed resume order for [facility]. -SHAUN Mazariegos
[2019-10-02 12:00] VITALS: BP 103/48
--- NOTE | 2019-10-02 15:50 | NUR ---
Occupational Therapy evaluation completed on 5 with full eval to follow. Precautions include SOB w/ conversation, new continuous oxygen need, pacemaker,fall risk, +2-3 transfers, high complexity level 85537. Recommend OT per pOC and SNF to enable return home or at max ability to function from scooter height. Thank you. Anjana Jodran OTr/L
[2019-10-02 16:00] VITALS: BP 90/67
--- NOTE | 2019-10-02 17:04 | NUR ---
PHYSICAL THERAPY Tabitha completed full report to follow pt high level of complexity 06568 recomend SNF at discharge PT to work on ROM,strengthening,Transfers,balance and safety. Ene Blackwell PT
[2019-10-02 20:00] VITALS: BP 110/54
--- NOTE | 2019-10-02 23:54 | NUR ---
24 HR chart check completed.
[2019-10-03] VITALS: BP 112/54
--- NOTE | 2019-10-03 00:10 | NUR ---
SLEEPING, AWAKENS EASILY. RESPIRATIONS EASY. LUNGS DIMINISHED. PULSE OX 97% 2L. GENERALIZED EDEMA. CALL LIGHT WITHIN REACH. NO VOICED COMPLAINTS. BED ALARM MAINTAINED FOR SAFETY
--- NOTE | 2019-10-03 06:00 | NUR ---
SLEPT THROUGHOUT NIGHT WITH NO DISTRESS NOTED. RESPIRATIONS EASY. O2 IN USE. CALL LIGHT WITHIN REACH. NO VOICED COMPLAINTS THIS SHIFT
--- NOTE | 2019-10-03 06:08 | NUR ---
PAM,OMAIRA Kapoor [id number] Please refer to the physician's history and physical for past medical history, comorbid conditions, and allergies. Diagnosis: CHF RENAL INSUFFICIENCY Ken Score: 16,AT RISK WOUND DESCRIPTIONS: Wound Number: 1 Location of the wound: right breast Type of wound: fungal Thickness: Partial Size: 5.0cm x 22.0cm x <0.1cm Tunneling: none Undermining: none Sinus Tract: none Presence of Exudate: none Amount: None Color: Red Odor: Musty Periwound Skin Appearance: Normal Wound edges: approximated Pain (associated with wound): none at time of assessment How does patient state this happened? pt states he has this all the time Wound Number: 2 Location of the wound: left breast Type of wound: fungal Thickness: Partial Size: 5.0cm x 25.5cm x <0.1cm Tunneling: none Undermining: none Sinus Tract: none Presence of Exudate: none Amount: None Color: Red Odor: Musty Periwound Skin Appearance: Normal Wound edges: approximated Pain (associated with wound): none at time of assessment How does patient state this happened? pt states he has this all the time Wound Number: 3 Location of the wound: periarea and lower abdominal fold Type of wound: fungal Thickness: Partial Size: 13.0cm x 41.0cm x <0.1cm Tunneling: none Undermining: none Sinus Tract: none Presence of Exudate: Amount: None Color: Red Odor: Musty Periwound Skin Appearance: Normal Wound edges: approximated Pain (associated with wound): none at time of assessment How does patient state this happened? pt states he has this all the time Patient's buttocks is red and blanchable at time of assessment. Patient incontinent of stool per nurse caring for patient. Patient's bilateral lower extremities red, dry and flaky at time of assessment. No open areas noted at time of assessment multiple intact scabbed areas to bilateral lower extremities. Surface the patient is resting on: Position Pro SKIN PREVENTION RECOMMENDATION: 1. Pressure redistribution support surface as appropriate 2. Elevate heels 3. Remove boots/TEDS every shift and reapply 4. Head of bed 30 degrees as tolerated 5. Assess nutrition and hydration 6. Manage moisture 7. Avoid the use of containment devices while in bed 8. Use absorptive products on surfaces limit layers of linens on bed 9. Turn and reposition every 1-2 hours in bed and every 1 hour in chair as tolerated 10. Weight shifts every 15 minutes while up in chair 11. Offloading with pillows or device to keep heels elevated off bed 12. Monitor skin at least every shift 13. Inspect under medical devices twice a day WOUND TREATMENT RECOMMENDATIONS: Continue: Cleanse entire buttocks with soap and water and apply hydraguard every shift and prn for soiling. Please reorder nystatin: Cleanse left breast, right breast and periarea and lower abdominal fold with soap and water pat areas dry then apply nystatin powder every 8 hours Continue Wheelchair cushion when oob. Continue Heel raiser pro boots to bilateral feet while in bed. Cleanse bilateral lower extremities with soap and water and apply aquaphor ointment daily
[2019-10-03 06:34] LABS: BASO % 0.3 % (0.0-1.0); EOS # 0.2 10*3/uL (0.0-0.4); EOS % 2.2 % (1.0-4.0); HEMATOCRIT 33.1 % (42.0-52.0); HEMOGLOBIN 10.1 g/dl (14.0-18.0); LYMPH # 1.2 10*3/uL (1.3-4.4); LYMPH % 14.9 % (27.0-41.0); MEAN CELL VOLUME 86.4 fl (80.0-94.0); MEAN CORPUSCULAR HGB 26.4 pg (27.0-31.0); MEAN CORPUSCULAR HGB CONC 30.5 g/dl (33.0-37.0); MEAN PLATELET VOLUME 10.3 fl (9.6-12.3); MONO # 0.8 10*3/uL (0.1-1.0); NEUT # 5.7 10*3/uL (2.3-7.9); NEUT % 72.3 % (47.0-73.0); PLATELET COUNT AUTOMATED 283 10*3/uL (130-400); RED BLOOD COUNT 3.83 10*6/uL (4.50-5.90); WHITE BLOOD COUNT 7.8 10*3/uL (4.8-10.8)
--- NOTE | 2019-10-03 07:22 | NUR ---
Late Note: CANAL STRUCTURE OPERATOR received late call from Director of Inpatient. Patient is now agreeable to SNF. CANAL STRUCTURE OPERATOR faxed new referral to [facility]. Will await acceptance/denial. -SHAUN Mazariegos
[2019-10-03 08:00] VITALS: BP 119/72
[2019-10-03 12:00] VITALS: BP 118/75
--- NOTE | 2019-10-03 12:20 | NUR ---
PATIENT INSTRUCTED ON FLUTTER Q1, GOOD PATIENT EFFORT.
--- NOTE | 2019-10-03 12:36 | NUR ---
Patient has been accepted to [facility] and can go when medically stable. HEALTH SCREENER notified RN Hospitalist Coordinator Julianna. -SHAUN Mazariegos
--- NOTE | 2019-10-03 13:11 | NUR ---
RING ATTACHER notified of Discharge. RING ATTACHER spoke with ESPERANZA Gold. SHAUN arranged for a 2pm transport with [facility]. RING ATTACHER left message for Next of Kin. SHAUN faxed discharge orders to [facility]. -SHAUN Mazariegos
--- NOTE | 2019-10-03 14:20 | NUR ---
OT NOTE Pt was seen this P.M. 1:1 for 15 minute OT session. Upon arrival pt was supine in bed. Pt identified by name and and had complaints of 8/10 R groin pain and presented to therapy with continuous 2L-O2 via NC which he remained on throughout the entire session. Pt declined ant out of bed activity or EOB activity due to pain level. Pt then completed BUE towel exercises over all planes of motion for 1 X 10 to increase and restore maximum functional use. Pt was left supine in bed with call light in hand, tray table in place, and bed alarm activated for safety. Continue with rec D/C plan to SNF. TEE Mcdonnell
--- NOTE | 2019-10-03 14:25 | NUR ---
Discharge instructions reviewed with patient/family. Patient receptive and verbalizes understanding. Follow-up care arranged. Written instructions given to patient/family. DISCHARGED [facility]IS [facility] TO [facility]. MELISSA WALTON
--- NOTE | 2019-10-03 14:30 | NUR ---
REPORT CALLED TO JOURDAN AT [facility].
--- NOTE | 2019-10-03 15:00 | NUR ---
PHYSICAL THERAPY TREATMENT TIME: 2:05 PM - 2:20 Patient presented to therapy in supine with head of bed elevated and spO2 VIA NASAL CANULA. Patient gives informed consent for treatment. Patient was identified by name and on wristband. Patient declined standing tolerance and sitting on the EOB due to not feeling well and having inner R thigh pain and LE pain bilaterally. Patient agrees to therapeutic exercises in supine 2 x 10 reps each and AROM to AAROM with all exercises. Patient tolerated therapeutic LE exercises with increased pain in the R inner thigh. Patient was left in supine with head fo bed elevated, call light within reach and bed alarm activated. Patient was 1:1 with this STOVE FITTER for 15 minutes total. TAMMI SEBASTIAN STOVE FITTER
--- NOTE | 2019-10-05 07:49 | NUR ---
PHYSICAL THERAPY CO-SIGN I approve of the Physical Therapy notes written above. Ene Blackwell PT
--- NOTE | 2019-10-05 10:29 | NUR ---
MANAGER STYLIST COMPLETED HENS. -SHAUN PIERRE
--- NOTE | 2019-10-05 16:51 | NUR ---
OCCUPATIONAL THERAPY CO-SIGN I approve of the Occupational Therapy notes written above. LOVELY LEW OTR/Asif
== END 2019-10-03 14:25 | disposition other institution (70) | DRG 291 ==
LOC: ED 21:32 → 4E 23:31 → EDHOLD 23:31 → 4E 09-26 11:22 → 5E 10-01 05:03
PROVIDERS: Emergency Medicine; Internal Medicine; Student in an Organized Health Care Education/Training Program; ADMIT Family Medicine
DX: I13.0 Hypertensive heart and chronic kidney disease with heart failure and stage 1 through stage 4 chronic kidney disease, or unspecified chronic kidney disease (principal); N17.0 Acute kidney failure with tubular necrosis; J96.01 Acute respiratory failure with hypoxia; I50.43 Acute on chronic combined systolic (congestive) and diastolic (congestive) heart failure; Z68.42 Body mass index [BMI] 45.0-49.9, adult; E44.0 Moderate protein-calorie malnutrition; I35.8 Other nonrheumatic aortic valve disorders; N18.3 Chronic kidney disease, stage 3 (moderate); I25.5 Ischemic cardiomyopathy; E87.5 Hyperkalemia; E11.65 Type 2 diabetes mellitus with hyperglycemia; E78.5 Hyperlipidemia, unspecified; G70.00 Myasthenia gravis without (acute) exacerbation; G47.33 Obstructive sleep apnea (adult) (pediatric); N40.0 Benign prostatic hyperplasia without lower urinary tract symptoms; M50.30 Other cervical disc degeneration, unspecified cervical region; E66.01 Morbid (severe) obesity due to excess calories; I25.10 Atherosclerotic heart disease of native coronary artery without angina pectoris; K57.90 Diverticulosis of intestine, part unspecified, without perforation or abscess without bleeding; K76.0 Fatty (change of) liver, not elsewhere classified; K44.9 Diaphragmatic hernia without obstruction or gangrene; E55.9 Vitamin D deficiency, unspecified; D64.9 Anemia, unspecified; Z74.09 Other reduced mobility; Z79.899 Other long term (current) drug therapy; Z79.4 Long term (current) use of insulin; Z95.0 Presence of cardiac pacemaker; Z79.82 Long term (current) use of aspirin; I25.2 Old myocardial infarction; Z86.73 Personal history of transient ischemic attack (TIA), and cerebral infarction without residual deficits; Z86.718 Personal history of other venous thrombosis and embolism; Z79.01 Long term (current) use of anticoagulants; Z82.49 Family history of ischemic heart disease and other diseases of the circulatory system; Z91.14 Patient's other noncompliance with medication regimen

== ENCOUNTER 2019-10-11 10:05 | Inpatient (IN) | payer MEDICARE ==
[~2019-10-11] VITALS: Ht 167.6 cm; Wt 114.9 kg
[2019-10-11 10:05] VITALS: BP 162/84
[~2019-10-11 10:05] MED LIST changes: +METOPROLOL SUCC25 M2 PO
[2019-10-11 10:41] LABS: BASO % 0.3 % (0.0-1.0); EOS # 0.2 10*3/uL (0.0-0.4); EOS % 1.3 % (1.0-4.0); HEMATOCRIT 33.2 % (42.0-52.0); HEMOGLOBIN 10.1 g/dl (14.0-18.0); LYMPH # 1.6 10*3/uL (1.3-4.4); LYMPH % 13.6 % (27.0-41.0); MEAN CELL VOLUME 86.5 fl (80.0-94.0); MEAN CORPUSCULAR HGB 26.3 pg (27.0-31.0); MEAN CORPUSCULAR HGB CONC 30.4 g/dl (33.0-37.0); MEAN PLATELET VOLUME 9.7 fl (9.6-12.3); MONO # 0.9 10*3/uL (0.1-1.0); MONO % 7.7 % (3.0-9.0); NEUT # 8.7 10*3/uL (2.3-7.9); NEUT % 76.4 % (47.0-73.0); PLATELET COUNT AUTOMATED 354 10*3/uL (130-400); RED BLOOD COUNT 3.84 10*6/uL (4.50-5.90); RED CELL DISTRI WIDTH 17.6 % (0-14.5); WHITE BLOOD COUNT 11.4 10*3/uL (4.8-10.8)
[2019-10-11 11:05] LABS: ALBUMIN 2.6 gm/dl (3.1-4.5); ALKALINE PHOSPHATASE 80 U/L (45-117); BUN 20 mg/dl (7-24); CHLORIDE 100 mmol/L (98-107); CREATININE 1.29 mg/dL (0.70-1.30); POTASSIUM 4.1 mmol/L (3.5-5.1); SGOT/AST 14 IU/L (3-35); SGPT/ALT 14 U/L (12-78); SODIUM 138 mmol/L (136-145); TOTAL PROTEIN 6.6 gm/dL (6.4-8.2); TROPONIN I 0.018 ng/ml (<0.045)
[2019-10-11 11:08] LABS: ACT PARTIAL THROMBO TIME 32.5 SECONDS (20.0-32.1); INTERNATIONAL NORM RATIO 1.1 (2.0-3.5)
[2019-10-11 11:23] VITALS: BP 160/90
[2019-10-11] MEDS ORDERED: ANTACID SUSPEN355 M1 PO (14:05)
[2019-10-11 14:06] VITALS: BP 112/76
[2019-10-11] MEDS ORDERED: IMODIUM A-D2 M2 PO (14:07)
[2019-10-11] MEDS ORDERED: TYLENOL325 M1 PO (14:08)
[2019-10-11] MEDS ORDERED: VISTARIL50 MG PO (14:09)
[2019-10-11] MEDS ORDERED: ZOLOFT25 MG PO (14:10)
[2019-10-11] MEDS ORDERED: Ipratropium Brom3 ML INH (14:11)
[2019-10-11] MEDS ORDERED: GLUCAGON EMERGEN1 M1 IM (14:13)
[2019-10-11] MEDS ORDERED: HUMALOG100 UNIT/1 SQ (14:14)
[2019-10-11 16:00] VITALS: BP 117/76
[2019-10-11 20:00] VITALS: BP 116/74
[2019-10-11 22:58] VITALS: BP 140/82
[2019-10-12] VITALS: BP 115/75
[2019-10-12 07:03] LABS: BUN 21 mg/dl (7-24); CHLORIDE 98 mmol/L (98-107); SODIUM 139 mmol/L (136-145)
[2019-10-12 07:04] LABS: CREATININE 1.19 mg/dL (0.70-1.30)
[2019-10-12 12:00] VITALS: BP 109/76
[2019-10-12 16:00] VITALS: BP 117/64
[2019-10-12 17:35] LABS: ABG BASE EXCESS 9.3 mmol/L (-2.0-2.0); ARTERIAL BLOOD GAS PH 7.422 (7.35-7.45)
[2019-10-12 20:00] VITALS: BP 96/52
[2019-10-13] VITALS: BP 112/71
[2019-10-13 06:35] LABS: BUN 22 mg/dl (7-24); CHLORIDE 98 mmol/L (98-107); CREATININE 1.16 mg/dL (0.70-1.30); POTASSIUM 4.1 mmol/L (3.5-5.1); SODIUM 139 mmol/L (136-145)
[2019-10-13 08:00] VITALS: BP 110/64
[2019-10-13 12:00] VITALS: BP 117/70
[2019-10-13 16:00] VITALS: BP 110/70
[2019-10-13 20:00] VITALS: BP 112/74
[2019-10-14] VITALS: BP 98/55
[2019-10-14 08:00] VITALS: BP 124/58
[2019-10-14 08:44] LABS: BUN 28 mg/dl (7-24); CHLORIDE 99 mmol/L (98-107); CREATININE 1.14 mg/dL (0.70-1.30); POTASSIUM 3.8 mmol/L (3.5-5.1); SODIUM 141 mmol/L (136-145)
[2019-10-14 12:00] VITALS: BP 114/73
[2019-10-14 16:00] VITALS: BP 104/74
[2019-10-14 20:00] VITALS: BP 109/54
[2019-10-15] VITALS: BP 102/63
[2019-10-15 03:10] LABS: ALBUMIN 2.6 gm/dl (3.1-4.5); ALKALINE PHOSPHATASE 84 U/L (45-117); BUN 31 mg/dl (7-24); CHLORIDE 100 mmol/L (98-107); CREATININE 1.25 mg/dL (0.70-1.30); POTASSIUM 3.7 mmol/L (3.5-5.1); SGOT/AST 18 IU/L (3-35); SGPT/ALT 13 U/L (12-78); SODIUM 140 mmol/L (136-145); TOTAL PROTEIN 7.1 gm/dL (6.4-8.2)
[2019-10-15 06:22] LABS: BUN 31 mg/dl (7-24); CHLORIDE 101 mmol/L (98-107); CREATININE 1.17 mg/dL (0.70-1.30); POTASSIUM 3.6 mmol/L (3.5-5.1); SODIUM 144 mmol/L (136-145)
[2019-10-15 08:00] VITALS: BP 118/78
[2019-10-15 12:00] VITALS: BP 136/90
[2019-10-15 16:00] VITALS: BP 133/80
[2019-10-15 20:00] VITALS: BP 127/56
[2019-10-16] VITALS: BP 119/61
[2019-10-16 06:39] LABS: BUN 31 mg/dl (7-24); CHLORIDE 101 mmol/L (98-107); CREATININE 1.16 mg/dL (0.70-1.30); POTASSIUM 3.5 mmol/L (3.5-5.1); SODIUM 140 mmol/L (136-145)
[2019-10-16 08:00] VITALS: BP 116/79
[2019-10-16 12:00] VITALS: BP 122/86
[2019-10-16 12:55] LABS: ABG BASE EXCESS 12.2 mmol/L (-2.0-2.0); ARTERIAL BLOOD GAS PH 7.364 (7.35-7.45)
[2019-10-16 16:11] VITALS: BP 107/67
[2019-10-16 20:00] VITALS: BP 95/64
[2019-10-17] VITALS: BP 121/78
[2019-10-17 08:00] VITALS: BP 120/76
[2019-10-17 16:00] VITALS: BP 91/54
[2019-10-17 20:00] VITALS: BP 124/77
[2019-10-18] VITALS: BP 121/67
[2019-10-18 08:00] VITALS: BP 120/80
[2019-10-18 12:20] VITALS: BP 130/70
[2019-10-18 16:00] VITALS: BP 93/65
[2019-10-18 20:00] VITALS: BP 104/61
[2019-10-18 23:34] VITALS: BP 118/65
== END 2019-10-18 22:45 | disposition hospice, home (50) | DRG 70 ==
LOC: ED 10:05 → EDHOLD 12:41 → 4E 12:41
PROVIDERS: Emergency Medicine; Internal Medicine; Internal Medicine Critical Care Medicine; ADMIT Internal Medicine
PROC: 5A09357 Assistance with Respiratory Ventilation, Less than 24 Consecutive Hours, Continuous Positive Airway Pressure (ICD-10-PCS; principal; 2019-10-17)
PROC: 5A09357 Assistance with Respiratory Ventilation, Less than 24 Consecutive Hours, Continuous Positive Airway Pressure (ICD-10-PCS; 2019-10-18)
DX: G93.41 Metabolic encephalopathy (principal); I50.43 Acute on chronic combined systolic (congestive) and diastolic (congestive) heart failure; J96.20 Acute and chronic respiratory failure, unspecified whether with hypoxia or hypercapnia; I13.0 Hypertensive heart and chronic kidney disease with heart failure and stage 1 through stage 4 chronic kidney disease, or unspecified chronic kidney disease; J44.1 Chronic obstructive pulmonary disease with (acute) exacerbation; F33.0 Major depressive disorder, recurrent, mild; J45.41 Moderate persistent asthma with (acute) exacerbation; Z68.41 Body mass index [BMI] 40.0-44.9, adult; E87.3 Alkalosis; J44.0 Chronic obstructive pulmonary disease with (acute) lower respiratory infection; I42.9 Cardiomyopathy, unspecified; E78.2 Mixed hyperlipidemia; K21.0 Gastro-esophageal reflux disease with esophagitis; N40.1 Benign prostatic hyperplasia with lower urinary tract symptoms; R33.8 Other retention of urine; I25.10 Atherosclerotic heart disease of native coronary artery without angina pectoris; G47.33 Obstructive sleep apnea (adult) (pediatric); E11.22 Type 2 diabetes mellitus with diabetic chronic kidney disease; N18.9 Chronic kidney disease, unspecified; R62.7 Adult failure to thrive; E66.01 Morbid (severe) obesity due to excess calories; R41.0 Disorientation, unspecified; J20.9 Acute bronchitis, unspecified; I35.0 Nonrheumatic aortic (valve) stenosis; G70.00 Myasthenia gravis without (acute) exacerbation; I25.2 Old myocardial infarction; Z86.73 Personal history of transient ischemic attack (TIA), and cerebral infarction without residual deficits; Z79.4 Long term (current) use of insulin; Z79.899 Other long term (current) drug therapy; Z95.0 Presence of cardiac pacemaker; Z82.49 Family history of ischemic heart disease and other diseases of the circulatory system; Z83.3 Family history of diabetes mellitus

== ENCOUNTER 2019-10-19 01:00 | Inpatient (IN) | payer OTHER, MEDICARE ==
[2019-10-18 22:45] VITALS: BP 118/65
--- NOTE | 2019-10-18 22:45 | NUR ---
Time: 2244 A 74 year old male admitted under [facility] for inpatient hospice care. under services of DR. ZAZUETA. MURALI DUGGAN
--- NOTE | 2019-10-18 22:45 | NUR ---
THIS IS A CONTINUATION OF CARE UNDER [facility] FROM INPATIENT STATUS TO NOW HOSPICE INPATIENT STATUS. PATIENT REMAINED IN SAME ROOM WITH ALL BELONGINGS. PATIENT READMITTED.
[~2019-10-19] VITALS: Ht 167.6 cm; Wt 115.3 kg
[~2019-10-19 01:00] MED LIST changes: +ANTACID SUSPEN355 M1 PO; +GLUCAGON EMERGEN1 M1 IM; +HUMALOG100 UNIT/1 SQ; +IMODIUM A-D2 M2 PO; +Ipratropium Brom3 ML INH; +TYLENOL325 M1 PO; +VISTARIL50 MG PO; +ZOLOFT25 MG PO
--- NOTE | 2019-10-19 07:31 | NUR ---
PHYSICAL THERAPY Patient on hospice services at this time will discontinue therapy orders at this time, thank you. Ene Blackwell PT
--- NOTE | 2019-10-19 09:00 | NUR ---
Installer Technician in to see patient. He is currently GIP hospice. Awaiting bed at [facility] in [place].
--- NOTE | 2019-10-19 10:15 | NUR ---
HOSPICE IN TO STATE THAT THERE WAS A BED ON HOLD FOR THE PATIENT TO BE TRANSFERRED OUT, BUT IT HAS SINCE BEEN TAKEN. SO THEY ARE JUST WAITING ON A BED THERE, HOPEFULLY TODAY OR TOMORROW. THE NIECE STATES THAT SHE STILL AGREES FOR THE PATIENT TO BE TRANSFERRED ONCE A BED IS AVAILABLE
[2019-10-19 12:00] VITALS: BP 151/79
[2019-10-19 16:00] VITALS: BP 128/83
--- NOTE | 2019-10-19 18:22 | NUR ---
CALLED INTO PT ROOM PER FAMILY AND THEY SHOW ME A NEW RASH THAT IS ON THE PATIENTS ARM INTO THE ARM PIT REGION. PT STATES HE HAS NOT ATE ANYTHING NEW OR DONE ANYTHING OUT OF THE PARTICULAR. WILL CONTINUE TO MONITOR
--- NOTE | 2019-10-19 19:30 | NUR ---
RED BLOTCHY FLAT ITCHY RASH NOTED ON EACH INNER ARM AROUND ANTECUBITAL AREA AND FEW NOTED IN AXILLARY AREAS. THIS RASH WAS NOT THERE YESTERDAY.
--- NOTE | 2019-10-19 19:30 | NUR ---
Patient refusing NIV use this evening.
[2019-10-19 20:00] VITALS: BP 134/71
--- NOTE | 2019-10-19 20:43 | NUR ---
24 HR chart check completed.
--- NOTE | 2019-10-19 23:27 | NUR ---
Patient still refuses to use NIV
[2019-10-20 08:00] VITALS: BP 115/73
--- NOTE | 2019-10-20 08:21 | NUR ---
IN TO PT ROOM WITH DR BELL LOOKING AT THE RASH ON PT SKIN, SHE STATES IT IS ECHIMOSIS DUE TO BLOOD UNDER THE SKIN DUE TO THE BLOOD PRESSURE CUFF. SHE ASKS THE PATIENT IF HE WANTS TO TAKE MEDICATIONS BECAUSE OF NOW HE IS A HOSPICE PATIENT AND STATES EARLIER THAT HE JUST WANTED TO AND NOT TAKE MEDICATIONS. PT STATES NOW THAT HE DOES NOT WANT TO AND WANTS TO BE ON MEDICATIONS
--- NOTE | 2019-10-20 08:23 | NUR ---
IN TO TALK TO ROYA WITH MINERAL ENGINEER AND TOLD HER THAT THE PATIENT STATES THAT HE NOW WANTS TO NOT BE ON HOSPICE THAT HE WANTS TO BE ON MEDICATIONS TO FEEL BETTER. SHE STATES SHE WILL TALK TO DR ZAZUETA AND CLEAR THIS UP
--- NOTE | 2019-10-20 08:41 | NUR ---
Speech And Hearing Clinic Director in to see patient. Discussed hospice. He states "I don't want to anymore, I want to take my medication and be able to go home. I know this doesn't sound right but I feel as though there were cars in this room and they were box cars and I was stuck in one and couldn't get out." Discussed breathing treatments and bipap and he wants everything done. Notified Dr. Maier of patient no longer wishing to be hospice. Discussed short term SNF and he is agreeable and would like to go back to [facility]. senior program planner notified.
--- NOTE | 2019-10-20 09:05 | NUR ---
Discussed patient discharge planning with nida and Rosalba OLGUIN. She is upset about "the roller coaster ride of ups and downs. He is not able to go home by himself. If he goes back to the [facility] then he will be mean to the girls and not take his medication and will be right back at the hospital. When he went home he was only home for a couple of days and then came right back to the hospital." She would like to speak to Dr. Maier either in person or on the phone to discuss the patient. She states Dr. Maier told her in person that patient is not responding to his medications and is not getting any better. Asked Dr. Maier to reach out to JOZEF and Rosalba alva. New orders received from Dr. Maier for psych and BHU consult.
--- NOTE | 2019-10-20 09:19 | NUR ---
Notified Esha in [facility] of Dr. Mihai noel.
--- NOTE | 2019-10-20 09:22 | NUR ---
Notified nurse and [facility] nurse who is currently in the room with the patient regarding psych consult. [facility] nurse spoke with nida and CLAU. There is a bed available at [facility] today but hospice nurse will call to speak to her software test manager to see if they are able to hold that bed or what direction they are going to go in and let CM know.
--- NOTE | 2019-10-20 09:22 | NUR ---
JUAN ROBINS IN PT ROOM AT THIS TIME WITH HOSPICE NURSE AND DESTINEE STATES THAT A BHU CONSULT IS GOING TO BE DONE TO SEE IF THE PATIENT IS CAPABLE TO MAKE HIS OWN DECSIONS OR NOT. SHE CALLED THE NEICE AND SHE STATES THAT HE IS NOT AWARE OF WHAT HE WANTS AND SHE STILL WANTS HIM TO BE HOSPICE. SO ONCE BHU CONSULT IS COMPLETE WE WILL KNOW FURTHER PLANS
--- NOTE | 2019-10-20 09:49 | NUR ---
Received call from Chantelle/CLAU regarding niece wanting patient transferred to [facility] if he is able to due to "too many hands in the pot" here. [facility] Patient is not service connected and has no travel benefits. Faxed clinical to [phone].
--- NOTE | 2019-10-20 10:13 | NUR ---
HOSPICE NURSE ON FLOOR AND STATES THAT [facility] WSA IN AND DID AN EVAL BUT THEY NEED A CERTAIN DOCTOR TO BE ABLE TO SAY IF THE PATIENT IS COMPETENT ON MAKING HIS OWN DECISIONS OR NOT, AND THAT PERSON IS NOT IN HE HOSP TODAY.. SO FOR HOSPICE THEY ARE ON HOLD UNTL THEY GET AN ANSWER WHETHER OR NOT THE PATIENT CAN MAKE THEIR OWN DECISIONS OR NOT, THE NEICE IS NOTIFIED OF ALL OF THIS BY HOSPICE. WHEN THE EVAL IS DONE CALL JERALD WITH HOSPICE AT [phone]
--- NOTE | 2019-10-20 10:35 | NUR ---
Spoke to Christina at the [facility]. If patient was to be accepted to [facility] he would be required to pay transportation as he has no travel benefits and is not service connected. If patient chooses to go to a [facility] accepted nursing facility then [facility] would pay room and board. This would be a lateral transfer. Awaiting psych eval.
--- NOTE | 2019-10-20 12:08 | NUR ---
DR ZAZUETA ON THE FLOOR AND ASKING IF THERE IS ANYTHING NEW WITH THE PATIENT. I TOLD HIM THAT WE ARE WAITING TO HEAR FROM [facility] IN ORDER TO KNOW IF THEPATIENT CAN MAKE DECISIONS ON HIS OWN OR NOT. HE STATES ONCE WE HEAR ANYTHING TO LET HIM KNOW AND JUST MAINTAIN PT CARE UNTIL THEN
--- NOTE | 2019-10-20 12:35 | NUR ---
THE CONTINUITY WRITER FROM [facility] CALLED TO SAY THAT THEY DO DEEM THE PATIENT COMPETENT SO HE IS CLEAR TO MAKE HIS OWN DECISIONS. I WILL TELL THE HOSPICE NURSE AND MARBIN AT THIS TIME
--- NOTE | 2019-10-20 12:37 | NUR ---
CALLED DESTINEE ROBINS TO INFORM HER THAT THE MIG TIG WELDER STATES HE IS COMPETENT TO MAKE HIS OWN DECISIONS, SHE STATES 'OK'
--- NOTE | 2019-10-20 12:42 | NUR ---
Patient is competent to make his own decisions per [facility] nurse practitioner. Notified Dr. Maier. Asked if patient can be made inpatient again. Patient wants to go to [facility] on discharge.planner internship following.
--- NOTE | 2019-10-20 12:44 | NUR ---
CALLED DR ZAZUETA TO INFORM HIM OF [facility] UPDATE
--- NOTE | 2019-10-20 12:45 | NUR ---
Rosalba Pineda, states the hospital competency prem is a joke. She wants him assessed for dementia. She states patient is not able to have an MRI.
--- NOTE | 2019-10-20 12:50 | NUR ---
Spoke to Dr. Maier regarding patient competent and requesting to be inpatient. New orders received to discharge from hospice and readmit. Nurse, church warden, and nursing melter supervisor oxygen furnace aware.
--- NOTE | 2019-10-20 12:52 | NUR ---
CALLED JERALD FROM HOSPICE AND UPDATED HER THAT THE PT WILL NO LONGER BE OUT PATIENT HOSPICE, SHE SAID SHE NEEDS HIM TO SIGN A PAPER SO SHE WILL BE BACK
--- NOTE | 2019-10-20 13:17 | NUR ---
Contacted Ev at [facility], she stated patient is ok to return when medically stable. Clinicals updates faxed. Patient is ok to return when medically stable. Notified patient potential discharge for the weekend.
--- NOTE | 2019-10-20 13:24 | NUR ---
PT BEING DISCHARGED FROM HOSPICE CARE AT THIS TIME. PT UNDERSTANDS THE PLAN AND IS IN AGREEMENT OF THIS
== END 2019-10-20 13:24 | disposition short-term general hospital (02) | DRG 189 ==
LOC: 4E 01:00
PROVIDERS: ADMIT Internal Medicine
DX: J96.20 Acute and chronic respiratory failure, unspecified whether with hypoxia or hypercapnia (principal); G93.41 Metabolic encephalopathy; J44.1 Chronic obstructive pulmonary disease with (acute) exacerbation; I42.9 Cardiomyopathy, unspecified; J45.41 Moderate persistent asthma with (acute) exacerbation; I50.22 Chronic systolic (congestive) heart failure; E46 Unspecified protein-calorie malnutrition; Z68.41 Body mass index [BMI] 40.0-44.9, adult; N40.1 Benign prostatic hyperplasia with lower urinary tract symptoms; R33.8 Other retention of urine; I25.10 Atherosclerotic heart disease of native coronary artery without angina pectoris; R29.6 Repeated falls; F41.9 Anxiety disorder, unspecified; F32.9 Major depressive disorder, single episode, unspecified; R62.7 Adult failure to thrive; E66.01 Morbid (severe) obesity due to excess calories; E11.9 Type 2 diabetes mellitus without complications; G70.00 Myasthenia gravis without (acute) exacerbation; Z95.0 Presence of cardiac pacemaker

== ENCOUNTER 2019-10-20 13:35 | Inpatient (IN) | payer MEDICARE ==
[~2019-10-20] VITALS: Ht 167.6 cm; Wt 113.9 kg
--- NOTE | 2019-10-20 13:59 | NUR ---
DESTINEE IS ON THE FLOOR AND STATES THAT SHE IS GOING TO PUT ALL THE ORDERS IN PER DR ZAZUETA, HE IS AWARE OF HOME MEDS BEING CONTINUED AND WILL SEE THE PATIENT WHEN HE IS IN
--- NOTE | 2019-10-20 15:20 | NUR ---
DESTINEE ROBINS AND PT TG AND MYSELF ALL TALKING ABOUT WHAT IS GOING ON WITH THE PATIENT, AND FUTURE CARE. TG IS VERY FRUSTRATED WITH EVERYTHING GOING ON AND WANTS TO HAVE A PSYCHIATRIST EVALUATE THE PT. DESTINEE STATES SHE WILL GET AHOLD OF DR BARNES AND SET UP SOMETHING WITH HIM. ALL THE NIECES QUESTIONS ARE ANSWERED AT THIS TIME
--- NOTE | 2019-10-20 15:25 | NUR ---
Long conversation with niece/HPOA, Rosalba, regarding patient competent to make his own decisions. She is upset because patient has his up and down days. She states obviously today was a good day but there are times when he wants to , that he doesn't want to take his medications, that he doesn't want to wear his O2. Explained the [facility] nurse practitioner deemed the patient able to make his own decisions. She would like a psychiatrist to see the patient and not the nurse practitioner. If the psychiatrist is not able to see the patient here in the hospital she would like him to be seen at the facility. Discussed assisted living or nursing facility placement. She states he is not able to afford to private pay and he receives too much money to apply for Medicaid. He does have nurses at home 3 days a week but she feels they are not helping him. Discussed discharge planning of [facility] and she is agreeable but feels he will be right back to the hospital.
--- NOTE | 2019-10-20 15:47 | NUR ---
IN PT ROOM WITH PT AND THE TG AND PT STATES "I DO NOT REMEMBER SINGING ANY PAPERS. I SIGNED SOMETHING BUT DO NOT KNOW WHAT IT WAS FOR, I SHOOULD NOT BE ABLE TO SIGN PAPERS ON MY OWN. FOR THE LONGEST TIME I FELT LIKE I WAS STUCK IN A TRAIN AND WAS NOT ABLE TO LEAVE AND JUST COULD ONLY SLEEP. I JUST WANT TO GO HOME AND GET BACK TO NORMAL." PT TG IS EXPLAING THAT SHE WAS WANTING HIM TO BE ON HOSPICE SO THAT HE CAN HOPEFULLY GET HOME SOONER RATHER THAN LATER, PT IS CONFUSED AND NOT SURE WHAT IS GOING ON
[2019-10-20 16:00] VITALS: BP 116/76
--- NOTE | 2019-10-20 16:13 | NUR ---
Patient and niece/HPOA [facility]
[2019-10-20 20:00] VITALS: BP 115/72
--- NOTE | 2019-10-20 21:35 | NUR ---
PATIENT MEDICATED WITH NORCO PER DRS ORDERS FOR COMPLAINTS OF PAIN TO THE UPPER ABDOMEN, WILL MONITOR
[2019-10-21] VITALS: BP 119/64
[2019-10-21 08:00] VITALS: BP 113/78
--- NOTE | 2019-10-21 08:19 | NUR ---
ON ASSESSMENT PT IS ALERT, ABLE TO SAY HE'S IN "[facility]", "IT'S OCTOBER 2019", AND THE PRESIDENT IS "ZAC". HE A RED, SPLOTCHY, FLAT ITCHY RASH IN AXILLA'S, UPPER ARMS AND FLANKS. NONE ON HIS BACK, ABDOMEN, OR LEGS. NO VOICED COMPLAINTS OF PAIN. SEE ALL APPROPRIATE INTERVENTIONS.
--- NOTE | 2019-10-21 08:35 | NUR ---
Shift chart check completed.24 HR chart check completed.
[2019-10-21 12:00] VITALS: BP 113/80
--- NOTE | 2019-10-21 13:56 | NUR ---
DR BELL HAS VISITED, AWARE PT IS ANXIOUS.ORDERS RECEIVED AND MEDICATED WITH ATARAX 25MG FOR THE SAME.
--- NOTE | 2019-10-21 15:10 | NUR ---
PT HAS CALLED ME TO THE ROOM SEVERAL TIMES WANTING TO KNOW WHY HE'S STILL "HERE". HE CLAIMS "I MESSED UP AND SIGNED SOME PAPERS THAT I SHOULDN'T HAVE SIGNED AND NOW I'M STUCK HERE". EXPLANATIONS THAT DR BELL DIDN'T DISCHARGE HIM TODAY AND THAT ELECTRICAL ENGINEERING MANAGER WILL HAVE TO WORK ON COMMUNICATION WITH INSURANCE COMPANIES NO MATTER WHERE HE GOES.
--- NOTE | 2019-10-21 15:26 | NUR ---
PT'S SISTER HERE SAYING PT WANTS TO GO HOME. EXPLANATIONS THAT PT HAS NOT BEED DISCHARGED AND THAT IF HE WANTED TO SIGN HIMSELF OUT HE WOULD HAVE TO HAVE SOMEONE WILLING TO TAKE HIM HOME. SISTER SAYS "NO ONE WILL TAKE HIM HOME". EXPLANATIONS ABOUT NEEDING PRECERTIFICATION FOR HALFWAY FACILITIES AND THAT PROCESS IS "PENDING" AND PROBABLY WILL NOT HAPPEN TILL AT LEAST WEDNESDAY.
[2019-10-21 16:00] VITALS: BP 99/71
[2019-10-21 20:00] VITALS: BP 110/76
[2019-10-22] VITALS: BP 118/71
--- NOTE | 2019-10-22 03:46 | NUR ---
24 HOUR CHART CHECK COMPLETE
[2019-10-22 08:00] VITALS: BP 107/76
--- NOTE | 2019-10-22 09:18 | NUR ---
PT RESTING IN BED. NO DISTRESS NOTED. WILL MONITOR
[2019-10-22 12:00] VITALS: BP 103/75
--- NOTE | 2019-10-22 12:10 | NUR ---
PT REQUESTED AND GIVEN ZOFRAN FOR C/O NAUSEA. WILL MONITOR
--- NOTE | 2019-10-22 14:00 | NUR ---
TY HELPED WILL MONITOR
[2019-10-22 16:00] VITALS: BP 108/71
[2019-10-22 20:00] VITALS: BP 118/62; BP 124/94
--- NOTE | 2019-10-22 20:00 | NUR ---
PATIENT RESTING WITH EYES CLOSED, AWAKENS EASILY. A&Ox3. PATIENT HAS NO COMPLAINTS AT THIS TIME. BED ALARM ON AND CALL LIGHT IN REACH. WILL MONITOR.
[2019-10-23] VITALS: BP 107/74
--- NOTE | 2019-10-23 03:38 | NUR ---
24 HR chart check completed.
[2019-10-23 08:00] VITALS: BP 118/76
--- NOTE | 2019-10-23 08:12 | NUR ---
MALES,OMAIRA Kapoor [id number] Please refer to the physician's history and physical for past medical history, comorbid conditions, and allergies. Diagnosis: CHF Ken Score: 11,HIGH RISK WOUND DESCRIPTIONS: Assessed patient's bilateral arms, groin and under breasts. Patient has red fungal rash to these areas. No open areas or drainage noted at time of assessment. Patient denied pain at time of assessment. Surface the patient is resting on: Position Pro SKIN PREVENTION RECOMMENDATION: 1. Pressure redistribution support surface as appropriate 2. Elevate heels 3. Remove boots/TEDS every shift and reapply 4. Head of bed 30 degrees as tolerated 5. Assess nutrition and hydration 6. Manage moisture 7. Avoid the use of containment devices while in bed 8. Use absorptive products on surfaces limit layers of linens on bed 9. Turn and reposition every 1-2 hours in bed and every 1 hour in chair as tolerated 10. Weight shifts every 15 minutes while up in chair 11. Offloading with pillows or device to keep heels elevated off bed 12. Monitor skin at least every shift 13. Inspect under medical devices twice a day WOUND TREATMENT RECOMMENDATIONS: Continue current orders.
--- NOTE | 2019-10-23 08:35 | NUR ---
Mixer Slagman in to see patient. Discussed SNF and he wants to go to [facility]. Explained [facility] doesn't have any bed availability at this time. Discussed [place] and [facility]. He really just wants to go to [facility]. Explained a place needs to be chosen today. He would like to speak to his niece, Rosalba. Spoke to Rosalba who is agreeable to [facility]. She states over the weekend he called her wanting her to come and pick him up and bring him home, that he was going to sign out AMA, she stated she was not coming to pick him up no matter what. Asked Rosalba to call patient as he would like to speak to her. steam table worker/convention planner notified.
--- NOTE | 2019-10-23 09:07 | NUR ---
Received call from Rosalba alva, who states she spoke with the patient regarding [facility]. He stated to her that no one discussed that with him this morning and that someone was lying. Patient and melinaece/HPOA are both agreeable to [facility]. Chantelle would like patient seen by a psychiatrist not the nurse practitioner. Dr. Maier notified.
--- NOTE | 2019-10-23 11:42 | NUR ---
Indira from [facility] called to check in on patient.
[2019-10-23 12:00] VITALS: BP 129/74
--- NOTE | 2019-10-23 15:31 | NUR ---
Discussed discharge planning with Dr. Maier. order planner checking with [facility] for acceptance.
[2019-10-23 16:00] VITALS: BP 121/66
--- NOTE | 2019-10-23 17:52 | NUR ---
PT HAS GUESTS IN HIS ROOM AND DOES NOT WANT TO PUT HIS CREAM/NYSTATIN ON AT THIS TIME
--- NOTE | 2019-10-23 19:54 | NUR ---
24 HR chart check completed.
[2019-10-23 20:00] VITALS: BP 103/82
--- NOTE | 2019-10-23 20:30 | NUR ---
SITTING UP IN BED WITH NO ACUTE DISTRESS NOTED. RESPIRATIONS EASY. LUNGS DIMINISHED. PULSE OX 99% 3L. LOOSE COUGH, PROD FOR THICK PHLEGM. RASH NOTED TO ARMS AND TORSO. CALL LIGHT WITHIN REACH. NO VOICED COMPLAINTS
--- NOTE | 2019-10-23 21:18 | NUR ---
MEDICATED WITH VISTARIL AND XANAX PER PRN ORDER FOR COMPLAINTS OF ANXITY AND TO ASSIST WITH SLEEP. WILL MONITOR
--- NOTE | 2019-10-23 23:00 | NUR ---
MEDS EFFECTIVE. SLEEPING
[2019-10-24] VITALS: BP 101/73
--- NOTE | 2019-10-24 01:00 | NUR ---
SLEEPING WITH NO DISTRESS NOTED. RESPIRATIONS EASY. VSS. CALL LIGHT WITHIN REACH
--- NOTE | 2019-10-24 04:36 | NUR ---
Upon discharge recommend patient to follow up for wound care in outpatient setting continue current wound care orders at discharging facility
--- NOTE | 2019-10-24 06:00 | NUR ---
RETED THROUGHOUT NIGHT WITH NO DISTRESS NOTED. RESPIRATIONS EASY. O2 IN USE. CALL LIGHT WITHIN REACH. NO VOICED COMPLAINTS THIS SHIFT
--- NOTE | 2019-10-24 06:45 | NUR ---
INTITIAL BSG CHECK 60. PATIENT ASYMPTOMATIC. PROVIDED WITH OJ, PATIENT DRANK MINIMAL. BSG 66. PATIENT ASYMPTOMATIC AND REFUSES TO DRINK MORE
--- NOTE | 2019-10-24 07:20 | NUR ---
IN TO PT ROOM DUE TO PT YELLING 'NURSE'. PT WANTS TO BE MOVED UP IN BED AT THIS TIME. I EXPLAINED WHERE HIS CALL LIGHT IS LOCATED TO CALL INSTEAD OF YELLING. ASSESSMENT DONE AT THIS TIME. PT COMPLAINS OF NOT BEING ABLE TO BREAK UP HIS COUGH, BUT NO NEW COMPLAINTS. I EXPLAINED I WILL BE BACK WITH HIS 1000 MEDS, PT STATES HE DOES NOT NEED ANYTHING AT THIS TIME.
--- NOTE | 2019-10-24 07:25 | NUR ---
Referral sent to [facility], will need PT Eval. Waiting on acceptance. -SHAUN Mazariegos
[2019-10-24 08:00] VITALS: BP 107/64
--- NOTE | 2019-10-24 08:44 | NUR ---
PHYSICAL THERAPY Eval completed at the bedside moderate level of complexity 74894 full report to follow PT to work on transfers,standing with AD,strengthening/balance and safety. Ene Blackwell PT
--- NOTE | 2019-10-24 09:00 | NUR ---
Reroller Hand in to see patient. No new needs or request at this time. When medically stable and accepted he will be discharged to [facility]. marshmallow machine worker following.
--- NOTE | 2019-10-24 09:36 | NUR ---
DR ZAZUETA ON THE FLOOR AND I STATED HE HAS A RASH ON HIS STOMACH NOW, AND HE STATES THAT IT MAY BE SOME SORT OF REACTION TO A MEDICATION THAT HE IS ON, TO KEEP AN EYE ON IT AND CONTINUE TO MONITOR THE PATIENT
--- NOTE | 2019-10-24 10:20 | NUR ---
Still awaiting acceptance from [facility]. Faxed PT Eval to [facility]. -SHAUN Mazariegos
--- NOTE | 2019-10-24 11:29 | NUR ---
Christina from [facility] called asking for updates. Faxed clinical updates to her at [phone]
--- NOTE | 2019-10-24 11:51 | NUR ---
Nutritional Support Services Note: Pt. is consuming 100% of meals. Rash is noted on arms w/ no open areas noted. Currently on a NCD diet w/ yogurt at all meals. Continue to encourage good intakes. Karin Briscoe, Stephen dietetic student
[2019-10-24 12:00] VITALS: BP 118/69
--- NOTE | 2019-10-24 13:01 | NUR ---
[facility] denied the patient. [facility] no longer has a bed for the patient. FILBERT GROWER will fax referral to [facility] for review. -SHAUN Mazariegos
--- NOTE | 2019-10-24 13:45 | NUR ---
[facility] is able to accept the patient. Health Advisor Marni has been notified. DRY CLEANING MANAGER reached out to the patients nida Navarrete, and explained the patient has been accepted at [facility]. Maurice is agreeable to this. SHAUN requested HENs from [facility] to be faxed to Case Management. -SHAUN Mazariegos
--- NOTE | 2019-10-24 14:17 | NUR ---
Discussed SNF with patient. Explained [facility] is not able to take him and [facility] is full. Explained social secretary spoke to Rosalba and her next choice was [facility] as [place] and [place] were both too far. He verbalized an understanding and is agreeable. Notified Dr. Maier if patient is medically stable he can be discharged to [facility]. Nurse notified.
--- NOTE | 2019-10-24 15:21 | NUR ---
Shift chart check completed.
[2019-10-24 16:00] VITALS: BP 102/81
[2019-10-24] MEDS ORDERED: FUROSEMIDE40 MG PO (18:59)
--- NOTE | 2019-10-24 19:26 | NUR ---
24 HR chart check completed.
--- NOTE | 2019-10-24 20:00 | NUR ---
PATIENT NOTED TO HAVE RED FUNGAL RASH OVER ENTIRE BODY. DECLINES PICS.
--- NOTE | 2019-10-24 20:30 | NUR ---
ATTEMPTED TO CALL [facility] FOR REPORT. AFTER TRANSFERRING BETWEEN 2 DIFFERENT PEOPLE, LINE BECAME DISCONNECTED. WILL ATTEMPT TO CALL BACK
--- NOTE | 2019-10-24 20:40 | NUR ---
REPORT CALLED TO KEE AT [facility]
--- NOTE | 2019-10-24 21:00 | NUR ---
Discharge instructions reviewed with patient/family. Patient receptive and verbalizes understanding. Written instructions given to ambulance. patient discharged in care of ambulance in stable condition. transporting to [facility]
== END 2019-10-24 22:01 | DRG 291 ==
LOC: 5E 13:35 → 4E 13:35 → 5E 10-22 17:57
PROVIDERS: ADMIT Internal Medicine
DX: I50.23 Acute on chronic systolic (congestive) heart failure (principal); G93.41 Metabolic encephalopathy; I42.9 Cardiomyopathy, unspecified; J45.41 Moderate persistent asthma with (acute) exacerbation; E46 Unspecified protein-calorie malnutrition; Z68.41 Body mass index [BMI] 40.0-44.9, adult; R62.7 Adult failure to thrive; E66.01 Morbid (severe) obesity due to excess calories; Z51.5 Encounter for palliative care; Z66 Do not resuscitate; E11.9 Type 2 diabetes mellitus without complications; N40.1 Benign prostatic hyperplasia with lower urinary tract symptoms; R33.8 Other retention of urine; I25.10 Atherosclerotic heart disease of native coronary artery without angina pectoris; F41.1 Generalized anxiety disorder; G70.00 Myasthenia gravis without (acute) exacerbation; Z95.0 Presence of cardiac pacemaker

== ENCOUNTER 2019-10-31 19:54 | Inpatient (IN) | payer MEDICARE ==
[~2019-10-31] VITALS: Ht 167.6 cm; Wt 106.6 kg
[~2019-10-31 19:54] MED LIST changes: +FUROSEMIDE40 MG PO
[2019-10-31 20:09] VITALS: BP 82/62
[2019-10-31 20:32] LABS: BASO % 0.4 % (0.0-1.0); EOS # 0.1 10*3/uL (0.0-0.4); EOS % 1.8 % (1.0-4.0); HEMATOCRIT 37.9 % (42.0-52.0); HEMOGLOBIN 11.3 g/dl (14.0-18.0); LYMPH # 1.6 10*3/uL (1.3-4.4); LYMPH % 22.7 % (27.0-41.0); MEAN CELL VOLUME 85.7 fl (80.0-94.0); MEAN CORPUSCULAR HGB 25.6 pg (27.0-31.0); MEAN CORPUSCULAR HGB CONC 29.8 g/dl (33.0-37.0); MONO # 0.4 10*3/uL (0.1-1.0); MONO % 5.9 % (3.0-9.0); NEUT # 4.9 10*3/uL (2.3-7.9); NEUT % 68.8 % (47.0-73.0); PLATELET COUNT AUTOMATED 334 10*3/uL (130-400); RED BLOOD COUNT 4.42 10*6/uL (4.50-5.90); RED CELL DISTRI WIDTH 19.5 % (0-14.5); WHITE BLOOD COUNT 7.2 10*3/uL (4.8-10.8)
[2019-10-31 20:44] LABS: ACT PARTIAL THROMBO TIME 27.1 SECONDS (20.0-32.1); INTERNATIONAL NORM RATIO 1.1 (2.0-3.5)
[2019-10-31 20:50] LABS: ALBUMIN 2.2 gm/dl (3.1-4.5); ALKALINE PHOSPHATASE 188 U/L (45-117); BUN 15 mg/dl (7-24); CHLORIDE 99 mmol/L (98-107); CREATININE 1.23 mg/dL (0.70-1.30); POTASSIUM 3.9 mmol/L (3.5-5.1); SGOT/AST 28 IU/L (3-35); SGPT/ALT 20 U/L (12-78); SODIUM 139 mmol/L (136-145); TOTAL PROTEIN 6.6 gm/dL (6.4-8.2); TROPONIN I 0.028 ng/ml (<0.045)
[2019-10-31 22:04] VITALS: BP 98/60
[2019-10-31 22:05] VITALS: BP 108/45
[2019-10-31 22:38] VITALS: BP 108/43
[2019-10-31] MEDS ORDERED: BASAG SOL SQ (22:44)
[2019-10-31] MEDS ORDERED: TYLENOL325 M1 PO (22:44)
[2019-10-31] MEDS ORDERED: BUSPIRONE10 MG PO (22:46)
[2019-10-31] MEDS ORDERED: GENTLE LAXATIVE10 MG R (22:46)
[2019-10-31] MEDS ORDERED: FLEET ENEMA 13133 ML R (22:47)
[2019-10-31] MEDS ORDERED: MILK OF MA400 MG/52 PO (22:48)
[2019-10-31] MEDS ORDERED: Ipratropium Brom3 ML INH (22:48)
[2019-11-01 08:00] VITALS: BP 146/72
[2019-11-01 12:00] VITALS: BP 120/66
[2019-11-01 16:00] VITALS: BP 104/71
[2019-11-01 20:00] VITALS: BP 103/70
[2019-11-02] VITALS: BP 101/66
[2019-11-02 08:09] VITALS: BP 112/80
[2019-11-02 11:20] LABS: BUN 14 mg/dl (7-24); CHLORIDE 102 mmol/L (98-107); CREATININE 0.98 mg/dL (0.70-1.30); POTASSIUM 4.5 mmol/L (3.5-5.1); SODIUM 139 mmol/L (136-145)
[2019-11-02 16:45] VITALS: BP 127/86
[2019-11-02 20:00] VITALS: BP 110/66
[2019-11-03] VITALS: BP 99/38
[2019-11-03 01:14] VITALS: BP 102/68
[2019-11-03 02:16] VITALS: BP 112/72
[2019-11-03 08:00] VITALS: BP 115/85
[2019-11-03] MEDS ORDERED: XARELTO10 MG PO (11:07)
== END 2019-11-03 13:17 | disposition other institution (70) | DRG 291 ==
LOC: ED 19:54 → 5E 21:06 → EDHOLD 21:06 → 5E 21:35
PROVIDERS: Emergency Medicine; Internal Medicine; ADMIT Internal Medicine
DX: I13.0 Hypertensive heart and chronic kidney disease with heart failure and stage 1 through stage 4 chronic kidney disease, or unspecified chronic kidney disease (principal); I50.23 Acute on chronic systolic (congestive) heart failure; E43 Unspecified severe protein-calorie malnutrition; I26.99 Other pulmonary embolism without acute cor pulmonale; F33.2 Major depressive disorder, recurrent severe without psychotic features; N18.9 Chronic kidney disease, unspecified; I42.9 Cardiomyopathy, unspecified; E66.01 Morbid (severe) obesity due to excess calories; I25.10 Atherosclerotic heart disease of native coronary artery without angina pectoris; E11.9 Type 2 diabetes mellitus without complications; R62.7 Adult failure to thrive; E11.22 Type 2 diabetes mellitus with diabetic chronic kidney disease; J45.40 Moderate persistent asthma, uncomplicated; G70.00 Myasthenia gravis without (acute) exacerbation; N40.1 Benign prostatic hyperplasia with lower urinary tract symptoms; R33.8 Other retention of urine; F41.1 Generalized anxiety disorder; Z66 Do not resuscitate; Z51.5 Encounter for palliative care; Z95.0 Presence of cardiac pacemaker; Z86.73 Personal history of transient ischemic attack (TIA), and cerebral infarction without residual deficits; Z82.49 Family history of ischemic heart disease and other diseases of the circulatory system; Z91.19 Patient's noncompliance with other medical treatment and regimen; Z79.899 Other long term (current) drug therapy; Z83.3 Family history of diabetes mellitus; Z68.39 Body mass index [BMI] 39.0-39.9, adult